=== PATIENT | female | born 1945 | race Caucasian/White ===

== ENCOUNTER 2017-01-17 12:16 | Inpatient (IN) ==
--- OUTSIDE RECORDS SUMMARY | 2017-01-17 12:41 | External Medical Summary | Clinical Summary ---
:1945 Author Organization [facility] Address [address] [place] [address] Phone Care Team Providers Name Role Phone Unavailable Primary Care Provider Unavailable Source Comments Some departments are not documenting in the electronic medical record. If you do not see the information that you expected, contact Release of Information in the Health Information Management department at [phone] for further assistance in locating additional records.[facility] Allergies Active Allergy Reactions Severity Noted Date Comments Ciprofloxacin STOMACH UPSET 05/01/2014 Amoxicillin-Pot Clavulanate STOMACH UPSET Low 04/02/2015 Current Medications Prescription Sig. Disp. Refills Start Date End Date Status BUDESONIDE/FORMOTEROL Inhale by mouth Active FUMARATE (SYMBICORT IN) Twice Daily. predniSONE (DELTASONE) 5 Take 10 mg by Active mg PO tablet mouth daily. pantoprazole DR Take 40 mg by Active (PROTONIX) 40 mg tablet mouth as Needed. albuterol (VENTOLIN HFA, Inhale 2 Puffs Active PROAIR HFA) 90 by mouth every 6 mcg/actuation inhaler hours as needed. CHOLECALCIFEROL (VITAMIN Take by mouth Active D3) (VITAMIN D3 PO) daily. fluticasone (FLONASE) 50 2 sprays to each 6 Inhaler 3 09/13/2012 Active mcg/actuation nasal nostril 2 times spray a day DIPHENOXYLATE Take 2.5 mg by Active HCL/ATROPINE (LOMOTIL mouth. PO) losartan (COZAAR) 25 mg Take 25 mg by Active tablet mouth daily. other medication 1 Dose. pre Active diabetic medicine starts with a P the pt is unsure of name. CYANOCOBALAMIN (VITAMIN Take by mouth. Active B-12) (VITAMIN B-12 PO) COD LIVER OIL PO Take by mouth. Active BABY ASPIRIN PO Take by mouth. Active predniSONE (DELTASONE) 09/02/2015 Active 10 mg tablet Active Problems Problem Noted Date Esophageal reflux 04/08/2005 Acquired deformity of nose 09/11/2004 Overview: Large post septal perforation Allergic rhinitis due to pollen 02/07/2004 Overview: Mold, dust, pollen, and cats Diarrhea 05/17/2000 anosmia 05/17/1999 Other chronic sinusitis 05/17/1983 Overview: Nasal obstruction PATIENT NAME: MARIANA SIMON MR#/PT#: [id number]; DATE OF OPERATION: 02/25/2004 ROOM #: OBSV PREOPERATIVE DIAGNOSES: Pansinusitis with 4+ polyposis, all sinus areas. Large septal perforation. POSTOPERATIVE DIAGNOSES: Same. OPERATION: Bilateral revision maxillary antrostomy with polyp removal.Bilateral revision frontal duct exploration DRAF IIB with removal of polyps.Bilateral revision total ethmoidectomy with removal of polyps.Bilateral revision sphenoidectomy with removal of polyps. SURGEON: Jeremy Man M.D. DATA SME: Matt Reyna M.D. Anesthesia - General endotracheal anesthesia. Findings - 4+ nasal polyps, and sinus polyps. There was an 80 percent septal perforation and 80 percent of the middle and inferior turbinates were previously removed by 5 prior procedures. INDICATIONS FOR PROCEDURE: The patient is a 58-year-old female with a history of recurrent nasal polyps and chronic sinusitis in all sinuses. She has had 5 prior surgeries and presents with complete nasal airway opacification and polyps coming from bilateral nasal airways visualized on anterior examination. DESCRIPTION OF PROCEDURE: After informed consent was obtained by the patient, the patient was taken to the operating room, placed supine on the operating room table. General endotracheal anesthesia was initiated and once the patient was adequately asleep, the table was turned 90 degrees. A shoulder roll was placed, as was the [employer] Image Guidance refrigerating engineer head. Once the refrigerating engineer head was placed and calibrated, points were assured and nasal airway was decongested with Afrin. The patient had obvious polyps coming out of her nasal airways bilaterally and 1 percent lidocaine with 1:100,000 epinephrine was used initially to inject the polyps. Suction debrider was then used to debride the nasal polyps on the left and right sides, keeping the noncutting portion of the suction debrider against the septum. The patient was found to have a very large, near 80 percent, septal perforation with polyps coming from the right side over into the left side. The inferior turbinates were identified bilaterally. The middle turbinates had been resected almost in their entirety bilaterally. Maxillary sinuses were completely full of polyps. After clearing polyps from the nasopharynx up towards the skull base, the sphenoid sinus on both the right and left sides were identified using [employer] system. There was pus coming from the left maxillary sinus and thick secretions in both. Using the straight Fajardo suction, the sphenoid sinuses were opened and upbiting and downbiting Kerrison rongeurs were used to remove the anterior face of the sphenoid sinus. Polyps were removed using the suction and Blakesley forceps. After widely opening both the right and left sphenoid sinuses, attention was turned to the maxillary sinuses where large antrostomies had been made previously but the sinuses were completely full of polypoid disease and secretions. A 60 degree suction debrider was utilized to remove polypoid tissue from both the right and left maxillary sinuses with a combination of 0 and 45 degree endoscopes, as well as a 70 degree endoscope. After removal of near all polyps in both maxillary sinuses, attention was turned to the posterior ethmoid cells where, with direct visualization and image guidance, all ethmoid cells were removed from posterior to anterior with removal of all polypoid tissue. Careful attention was taken not to damage the cribriform area or through the lamina proprecia. After clearing all ethmoid cells on both the right and left sides, attention was turned to the frontals where a DRAF IIB technique wide opening into the frontal sinuses was obtained using a combination of giraffe forceps and Kerrison forceps anteriorly. The polypoid tissue and thick secretions were removed using nasal frontal duct suctions. After opening all sinuses and clearing all polyps from the nasal airway that could be seen, the nasal airways were packed using Merocel packing and patient was allowed to awaken from general anesthesia, extubated, transferred to recovery room in satisfactory condition. Dr. Man performed all murray portions of this procedure. Staff Physician Signature (This operative report will become an official part of the medical record when reviewed and AUTHENTICATED by the attending surgeon.) Matt Reyna M.D. / [id number] T: 02/26/2004 [id number] cc: Matt Reyna M.D.Jeremy Man M.D.ENT office Unspecified asthma 05/17/1944 Family History Medical History Relation Name Comments Hypertension Other Family history Cancer-Breast Other Family history Cancer-Colon Other Family history Relation Name Status Comments Brother Alive Daughter Alive Daughter Alive Father Maternal Grandfather Maternal Grandmother Mother Other Other Other Paternal Grandfather Paternal Grandmother Social History Tobacco Use Types Packs/Day Years Used Date Never Smoker Smokeless Tobacco: Never Used Alcohol Use Drinks/Week oz/Week Comments No Sex Assigned at Date Recorded Not on file Last Filed Vital Signs Vital Sign Reading Time Taken Blood Pressure 149/87 10/15/2015 1:18 PM CDT Pulse 97 10/15/2015 1:18 PM CDT Temperature 37.1 C (98.8 F) 06/20/2009 3:30 PM NETWORK SEC[employer]ITY CONSULTANT Respiratory Rate - - Oxygen Saturation 94% 06/20/2009 5:00 PM NETWORK SECURITY CONSULTANT Inhaled Oxygen Concentration - - Weight 130.5 kg (287 lb 9.6 oz) 10/15/2015 1:18 PM CDT Height 154.9 cm (5' 1") 10/15/2015 1:18 PM CDT Body Mass Index 54.34 10/15/2015 1:18 PM CDT Plan of Treatment Health Maintenance Due Date Last Done Comments PHYSICAL (COMPREHENSIVE) EXAM 1950 PERTUSSIS VACCINE 1954 TETANUS VACCINE 1960 BREAST CANCER SCREENING 1983 SHINGLES VACCINE 2003 PREVNAR/PNEUMOVAX (#1) 2008 INFLUENZA VACCINE 01/15/2017 COLORECTAL CANCER SCREENING 06/20/2019 06/20/2009 OSTEOPOROSIS SCREENING Completed 09/24/2010
--- OUTSIDE RECORDS SUMMARY | 2017-01-17 12:41 | External Medical Summary | Continuity Of Care Document ---
:1945 Author Organization [facility] Address [address] [place] [address] Phone Care Team Providers Name Role Phone TC ARAYA, ENOC Kennedy Consulting Provider CIRA ARAYA, BONI Hinkle Consulting Provider [phone] HELADIO RUELAS MD, PRANEETH Montelongo Primary Care Provider KATHARINA ARAYA, RHINA Montelongo Consulting Provider SHAUNA CURTIS MD Attending Provider Results Lab Results Visit/Account #[id number] (March 25, 2016 2:26pm - March 28, 2016 2:18pm ) Test Result Date/Time POCGL POCGL(70-110 MG/DL) 344 MG/DL March 26, 2016 8:47am 366 MG/DL March 26, 2016 11:28am 329 MG/DL March 26, 2016 5:29pm 223 MG/DL March 26, 2016 9:17pm 206 MG/DL March 27, 2016 5:26am 218 MG/DL March 27, 2016 11:23am 234 MG/DL March 27, 2016 4:56pm 248 MG/DL March 27, 2016 9:34pm 206 MG/DL March 28, 2016 5:09am 239 MG/DL March 28, 2016 11:00am 04262-5: COMPLETE BLOOD COUNT WITH DIFF WHITE BLOOD COUNT(4.0-11.0 10E3/UL) 8.4 10E3/UL March 25, 2016 2:52pm RED BLOOD COUNT(4.00-5.20 10E6/UL) 4.33 10E6/UL March 25, 2016 2:52pm HEMOGLOBIN(12.0-16.0 G/DL) 10.1 G/DL March 25, 2016 2:52pm HEMATOCRIT(36.0-46.0 %) 34.3 % March 25, 2016 2:52pm MEAN CORPUSCULAR VOLUME(82.0-100.0 FL) 79.2 FL March 25, 2016 2:52pm 39053-6: MEAN CORPUSCULAR HEMOGLOBIN(26.0-34.0 PG) 23.3 PG March 25, 2016 2 :52pm MEAN CORPUSCULAR HGB CONC(31.5-36.5 G/DL) 29.4 G/DL March 25, 2016 2:52pm RED CELL DISTRIBUTION WIDTH(11.5-14.5 %) 17.3 % March 25, 2016 2:52pm 777-3: PLATELET COUNT(150-450 10E3/UL) 301 10E3/UL March 25, 2016 2:52pm MEAN PLATELET VOLUME(8.2-12.4 FL) 8.8 FL March 25, 2016 2:52pm 770-8: NEUTROPHILS % (AUTO)(40-70 %) 84 % March 25, 2016 2:52pm LYMPHOCYTES % (AUTO)(15-45 %) 11 % March 25, 2016 2:52pm 5905-5: MONOCYTES % (AUTO)(2-10 %) 4 % March 25, 2016 2:52pm 713-8: EOSINOPHILS % (AUTO)(0-6 %) 0 % March 25, 2016 2:52pm 706-2: BASOPHILS % (AUTO)(0-1 %) 0 % March 25, 2016 2:52pm 04795-9: IMMATURE GRANS % (AUTO)(0-0 %) 1 % March 25, 2016 2:52pm NUCLEATED RBCS (AUTO)(0-0 %) 0 % March 25, 2016 2:52pm 751-8: NEUTROPHILS # (AUTO)(2.5-7.5 10E3/UL) 7.1 10E3/UL March 25, 2016 2: 52pm 37249-2: LYMPHOCYTES # (AUTO)(1.0-4.0 10E3/UL) 0.9 10E3/UL March 25, 2016 2 :52pm 742-7: MONOCYTES # (AUTO)(0.2-0.8 10E3/UL) 0.3 10E3/UL March 25, 2016 2: 52pm 711-2: EOSINOPHILS # (AUTO)(0.0-0.4 10E3/UL) 0.0 10E3/UL March 25, 2016 2: 52pm 704-7: BASOPHILS # (AUTO)(0.0-0.2 10E3/UL) 0.0 10E3/UL March 25, 2016 2: 52pm IMMATURE GRANS # (AUTO)(0.0-0.0 10E3/UL) 0.1 10E3/UL March 25, 2016 2:52pm DIFF TYPE AUTOMATED March 25, 2016 2:52pm COMPLETE BLOOD COUNT WHITE BLOOD COUNT(4.0-11.0 10E3/UL) 7.3 10E3/UL March 26, 2016 6:42am RED BLOOD COUNT(4.00-5.20 10E6/UL) 4.46 10E6/UL March 26, 2016 6:42am HEMOGLOBIN(12.0-16.0 G/DL) 10.4 G/DL March 26, 2016 6:42am HEMATOCRIT(36.0-46.0 %) 35.0 % March 26, 2016 6:42am MEAN CORPUSCULAR VOLUME(82.0-100.0 FL) 78.5 FL March 26, 2016 6:42am 29076-9: MEAN CORPUSCULAR HEMOGLOBIN(26.0-34.0 PG) 23.3 PG March 26, 2016 6:42am MEAN CORPUSCULAR HGB CONC(31.5-36.5 G/DL) 29.7 G/DL March 26, 2016 6:42am RED CELL DISTRIBUTION WIDTH(11.5-14.5 %) 17.2 % March 26, 2016 6:42am 777-3: PLATELET COUNT(150-450 10E3/UL) 287 10E3/UL March 26, 2016 6:42am MEAN PLATELET VOLUME(8.2-12.4 FL) 9.4 FL March 26, 2016 6:42am NUCLEATED RBCS (AUTO)(0-0 %) 0 % March 26, 2016 6:42am RETIC PANEL 98472-1: RETICULOCYTE %(0.2-2.0 %) 2.2 % March 26, 2016 8:06am ABSOLUTE RETICS #(16-78 10E9/L) 95 10E9/L March 26, 2016 8:06am IMMATURE RETIC FRACTION(3.0-15.9 %) 26.9 % March 26, 2016 8:06am 88187-0: D-DIMER 11609-7: D-DIMER(0.00-0.49 UG/ML) 0.32 UG/ML March 25, 2016 2:52pm 29353-4: COMPLETE METABOLIC PROFILE GLUCOSE(70-110 MG/DL) 257 MG/DL March 25, 2016 2:52pm BLOOD UREA NITROGEN(6-20 MG/DL) 26 MG/DL March 25, 2016 2:52pm CREATININE(0.50-1.20 MG/DL) 0.78 MG/DL March 25, 2016 2:52pm 75136-6: EST GLOMERULAR FILTRATION RATE(Greater than or equal to 60) Greater than or equal to 60 March 25, 2016 2:52pm Result Comments: If the patient is of -Ivorian descent/extraction multiply the eGFR value by 1.212 to obtain the actual eGFR. >=60 mg/dL Normal 30-59 mg/dL Moderate Kidney Disease 15-29 mg/dL Severe Kidney Disease <15 mg/dL Kidney Failure BUN CREATININE RATIO(10.0-20.0 RATIO) 33.0 RATIO March 25, 2016 2:52pm SODIUM(135-145 MMOL/L) 136 MMOL/L March 25, 2016 2:52pm POTASSIUM(3.6-5.0 MMOL/L) 4.5 MMOL/L March 25, 2016 2:52pm CHLORIDE(101-111 MMOL/L) 102 MMOL/L March 25, 2016 2:52pm CO2(21-31 MMOL/L) 27 MMOL/L March 25, 2016 2:52pm ANION GAP(8-18) 12 March 25, 2016 2:52pm OSMO CALCULATED(270.0-290.0) 285.5 March 25, 2016 2:52pm CALCIUM(8.5-10.5 MG/DL) 8.4 MG/DL March 25, 2016 2:52pm BILIRUBIN,TOTAL(0.1-1.2 MG/DL) 0.2 MG/DL March 25, 2016 2:52pm ALKALINE PHOSPHATASE(42-121 IU/L) 55 IU/L March 25, 2016 2:52pm ASPARTATE AMINO TRANSFERASE(10-42 IU/L) 13 IU/L March 25, 2016 2:52pm ALANINE AMINOTRANSFERASE(10-60 IU/L) 15 IU/L March 25, 2016 2:52pm TOTAL PROTEIN(6.4-8.2 G/DL) 6.5 G/DL March 25, 2016 2:52pm ALBUMIN(3.5-5.5 G/DL) 3.6 G/DL March 25, 2016 2:52pm GLOBULIN(2.4-3.6) 2.9 March 25, 2016 2:52pm ALBUMIN/GLOBULIN RATIO(0.9-1.8 RATIO) 1.2 RATIO March 25, 2016 2:52pm BASIC METABOLIC PANEL GLUCOSE(70-110 MG/DL) 292 MG/DL March 26, 2016 6:42am BLOOD UREA NITROGEN(6-20 MG/DL) 22 MG/DL March 26, 2016 6:42am CREATININE(0.50-1.20 MG/DL) 0.92 MG/DL March 26, 2016 6:42am 34023-2: EST GLOMERULAR FILTRATION RATE(Greater than or equal to 60) Greater than or equal to 60 March 26, 2016 6:42am Result Comments: If the patient is of -[place]vorian descent/extraction multiply the eGFR value by 1.212 to obtain the actual eGFR. >=60 mg/dL Normal 30-59 mg/dL Moderate Kidney Disease 15-29 mg/dL Severe Kidney Disease <15 mg/dL Kidney Failure If the patient is of -[place]ian descent/extraction multiply the eGFR value by 1.212 to obtain the actual eGFR. >=60 mg/dL Normal 30-59 mg/dL Moderate Kidney Disease 15-29 mg/dL Severe Kidney Disease <15 mg/dL Kidney Failure BUN CREATININE RATIO(10.0-20.0 RATIO) 24.0 RATIO March 26, 2016 6:42am SODIUM(135-145 MMOL/L) 139 MMOL/L March 26, 2016 6:42am POTASSIUM(3.6-5.0 MMOL/L) 4.5 MMOL/L March 26, 2016 6:42am CHLORIDE(101-111 MMOL/L) 103 MMOL/L March 26, 2016 6:42am CO2(21-31 MMOL/L) 27 MMOL/L March 26, 2016 6:42am ANION GAP(8-18) 14 March 26, 2016 6:42am OSMO CALCULATED(270.0-290.0) 291.6 March 26, 2016 6:42am CALCIUM(8.5-10.5 MG/DL) 8.6 MG/DL March 26, 2016 6:42am 30478-6: CARDIAC TROPONIN I 46686-3: CARDIAC TROPONIN I(0.01-0.04 NG/ML) 0.01 NG/ML March 25, 2016 2: 52pm Result Comments: REFERENCE RANGES: NEGATIVE < 0.04 NG/ML POSSIBLE MYCARDIAL INVOLVEMENT >/=0.04 NG/ML INTERPRET TROPONIN I RESULT IN LIGHT OF THE TOTAL CLINICAL PRESENTATION INCLUDING CLINICAL HISTORY. ANY CONDITION RESULTING IN MYOCARDIAL INJURY CAN POTENTIALLY ELEVATE TROPONIN I LEVELS ABOVE EXPECTED NORMAL RANGES. NOTE NEW REFERENCE RANGE 68820-9: BETA NATRIURETIC PEPTIDE 85371-7: BETA NATRIURETIC PEPTIDE(0-100 PG/ML) 72 PG/ML March 25, 2016 2: 52pm IRON PROFILE IRON(40-160 UG/DL) 19 UG/DL March 26, 2016 8:06am IRON BINDING CAPACITY, TOTAL(250-400 UG/DL) 388 UG/DL March 26, 2016 8: 06am 3034-6: TRANSFERRIN(192-382 MG/DL) 277 MG/DL March 26, 2016 8:06am IRON SATURATION(20-50 %) 5 % March 26, 2016 8:06am 58120-2: GLYCOHEMOGLOBIN A1C 4548-4: %A1C(4.6-6.2 %) 8.4 % March 26, 2016 8:06am Microbiology Results Visit/Account #[id number] (March 25, 2016 2:26pm - March 28, 2016 2:18pm ) Procedure Result 37713-5: MRSA SCREEN FOR INFEC CONTROL 80336-5: MRSA SCREEN FOR INFEC CONTROL Result Instance On March 25, 2016 6: 41pm Source: [facility] Special Result Comments: No growth Allergies and Adverse Reactions Allergies and Adverse Reactions Patient Unit Number: [id number] Agent Type Reaction Severity Status FERROUS SULFATE Drug Allergy BLEEDING Unknown Active CIPROFLOXACIN Drug Adverse Reaction VOMITING Severe Active AMOXICILLIN Drug Adverse Reaction VOMITING Severe Active Problem List Problem List Visit/Account #[id number] (March 25, 2016 2:26pm - March 28, 2016 2:18pm ) Acute Problems: Code/Condition Comments Documented Start Documented Code(s) Date Resolved Date COPD exacerbation ICD10: J44.1 Obstructive chronic bronchitis with exacerbation ICD9: 491.21 Obstructive chronic bronchitis with exacerbation SNOMED: 958050556 Obstructive chronic bronchitis with exacerbation Chest pain ICD10: R07.9 Chest pain ICD9: 786.50 Chest pain SNOMED: 00587855 Chest pain 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 ICD9: 293.84 Anxiety disorder due to general medical condition SNOMED: 47556878 Anxiety disorder due to general medical condition History of nasal polyposis ICD10: Z87.09 History of nasal polyposis ICD9: V12.69 History of nasal polyposis SNOMED: 201737033 History of nasal polyposis Chronic Problems: Chronic hypoxemic respiratory failure ICD10: J96.11 Chronic respiratory failure with hypoxia ICD9: 518.83 Chronic respiratory failure with hypoxia SNOMED: 487797969 Chronic respiratory failure with hypoxia Resolved Problems: Chronic pansinusitis March 26, 2016 ICD10: J32.4 Chronic pansinusitis ICD9: 473.8 Chronic pansinusitis SNOMED: 93037165 Chronic pansinusitis Patient Unit Number: [id number] Chronic Problems: Code/Condition Comments Documented Start Documented Code(s) Date Resolved Date HTN (hypertension) ICD10: I10 Hypertension ICD9: 401.9 Hypertension SNOMED: 76675866 Hypertension Morbid obesity with body mass index of 50.0-59.9 in adult ICD10: E66.01 Morbid obesity with body mass index (BMI) of 50.0 to 59.9 in adult ICD9: 278.01 Morbid obesity with body mass index (BMI) of 50.0 to 59.9 in adult SNOMED: 101489493 Morbid obesity with body mass index (BMI) of 50.0 to 59.9 in adult 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.65 retirement current use of systemic steroids SNOMED: 816623410 retirement current use of systemic steroids Plan of Care Plan Of Care Visit/Account #[id number] (March 25, 2016 2:26pm - March 28, 2016 2:18pm ) Patient Instructions Instructions DI for Chronic Obstructive Pulmonary Disease Vital Signs Vital Signs Visit/Account #[id number] (March 25, 2016 2:26pm - March 28, 2016 2:18pm ) Sign First Result Last Result Code(s) Body Mass Index Body Mass Index (BMI): 54.0 kg/m2 On March 25, 2016 2:33pm 64511-9 BMI (body mass index) Body Mass Index as a Calculated Value 52.4 kg/m2 On March 25, 2016 2:33pm 95126-2 BMI (body mass index) Blood Pressure 136/ 80 mm[Hg] On March 25, 2016 6:02pm 158/ 60 mm[Hg] On March 28, 2016 10:54am 8480-6 BP Systolic Body Surface Area as a Calculated Value 2.17 m2 On March 25, 2016 2:33pm 3140-1 BSA (body surface area) Height (Feet/Inches) 5 [ft_us] 1 [in_us] On March 25, 2016 2:33pm Heart Rate/Pulse Pulse Rate (adult): 88 /min On March 25, 2016 6:02pm Pulse Rate (adult): 77 /min On March 28, 2016 10:54am 8867-4 Heart Rate 8893-0 Pulse rate Respiratory Rate Respiratory Rate: 24 /min On March 25, 2016 6:02pm Respiratory Rate: 22 /min On March 28, 2016 10:54am 9279-1 Respiratory rate Temperature in Fahrenheit Temperature (Fahrenheit): 97.7 [degF] On March 2:20pm Temperature (Fahrenheit): 99.3 [degF] On March 28, 2016 10: 54am 8310-5 Body Temperature Weight in Kilograms Weight (Kilograms): 125.7 kg On March 25, 2016 2:33pm 3141-9 Weight Measured 15357-8 Body weight measured in kilograms Functional Status Functional and Cognitive Status No Functional Status Data Medications Home Medications - Medications that the patient was taking prior to arrival at the hospital Visit/Account #[id number] (March 25, 2016 2:26pm - March 28, 2016 2:18pm ) Medication Route Sig/Schedule Precondition/Indication Comments/ Instructions Codes HYZAAR 100-12.5(LOSARTAN/HYDROCHLOROTHIAZIDE) 1 TAB TABLET ORAL DAILY Hydrochlorothiazide 12.5 MG / Losartan Potassium 100 MG Oral Tablet [Hyzaar] ( RxNorm): 653227 Dose: 2 TAB HYZAAR 100-12.5 (LOSARTAN/HYDROCHLOROTHIAZIDE) NDC: 30956117680 ASPIRIN CHEW(ASPIRIN) 81 MG TAB.CHEW ORAL DAILY Aspirin 81 MG Chewable Tablet (RxNorm): 398008 Dose: 81 MG ASPIRIN CHEW (ASPIRIN) NDC: 45160230631 DELTASONE(PredniSONE) 10 MG TAB ORAL DAILY {10 (Prednisone 10 MG Oral Tablet) } Pack (RxNorm): 147583 Dose: 20 MG DELTASONE (PredniSONE) NDC: 38970026171 VITAMIN D3(CHOLECALCIFEROL) 1000 UNIT TABLET ORAL DAILY Cholecalciferol 1000 UNT Oral Tablet (RxNorm): 742045 Dose: 1000 UNIT VITAMIN D3 (CHOLECALCIFEROL) NDC: 80411536847 Cod Liver Oil Softgel(OM3/DHA/EPA/COD LIVER OIL/A/D3) 1 EACH CAPSULE ORAL DAILY Cod Liver Oil Softgel (OM3/DHA/EPA/COD LIVER OIL/A/D3) NDC: 36881313551 Dose: 1 CAP B-12 1,000 MCG SUB TABLET(CYANOCOBALAMIN/FOLIC ACID) 1 EACH TAB.SUBL SUBLINGUAL DAILY B-12 1,000 MCG SUB TABLET (CYANOCOBALAMIN/FOLIC ACID) NDC : 43837767125 Dose: 1 EACH SYSTANE 0.3-0.4% EYE DROPS(PROPYLENE GLYCOL/PEG 400/PF) 1 EACH DROPERETTE EACH EYE NEEDED DRY EYES Polyethylene Glycol 400 4 MG/ML / Propylene glycol 3 MG/ML Ophthalmic Solution [Systane] (RxNorm): 351310 Dose: 1 DROP SYSTANE 0.3-0.4% EYE DROPS (PROPYLENE GLYCOL/PEG 400/PF) NDC: 10436877671 FERROUS SULFate(FERROUS SULFATE) 325 MG TABLET ORAL WITH BREAKFAST & SUPPER ferrous sulfate 325 MG Oral Tablet (RxNorm): 395206 Dose: 325 MG FERROUS SULFate (FERROUS SULFATE) NDC: 57231103596 OMNICEF(CEFDINIR) 300 MG CAP ORAL TWICE A DAY cefdinir 300 MG Oral Capsule (RxNorm): 439657 Dose: 300 MG OMNICEF (CEFDINIR) NDC: 18485159926 LOSARTAN POTASSIUM(LOSARTAN POTASSIUM) 25 MG TAB ORAL DAILY LOSARTAN POTASSIUM (LOSARTAN POTASSIUM) NDC: 52544962975 Dose: 25 MG VENTOLIN HFA(ALBUTEROL SULF) 18 GM INHALER INHALED EVERY 4 HOURS SHORTNESS OF BREATH 200 ACTUAT Albuterol 0.09 MG/ACTUAT Metered Dose Inhaler [Ventolin ] (RxNorm): 844023 Dose: 2 PUFF VENTOLIN HFA (ALBUTEROL SULF) NDC: 84182131721 LOMOTIL(DIPHENOXYLATE/ATROPINE) 1 TAB TABLET ORAL NEEDED LOOSE STOOL Atropine Sulfate 0.025 MG / Diphenoxylate Hydrochloride 2.5 MG Oral Tablet [ Lomotil] (RxNorm): 7126576 Dose: 1 TAB LOMOTIL (DIPHENOXYLATE/ATROPINE) NDC: 02877612096 POTASSIUM CHLORIDE(POTASSIUM CHLORIDE) 20 MEQ TAB.ER.PRT ORAL DAILY Potassium Chloride 20 MEQ Extended Release Oral Tablet (RxNorm): 731814 Dose: 20 MEQ POTASSIUM CHLORIDE (POTASSIUM CHLORIDE) NDC: 78719763667 IBUPROFEN(IBUPROFEN) 200 MG TABLET ORAL EVERY 6 HOURS PAIN Ibuprofen 200 MG Oral Tablet (RxNorm): 178460 Dose: 200 MG IBUPROFEN (IBUPROFEN) NDC: 75377084236 Inpatient/Ordered Medications - Medications administered during hospital visit Visit/Account #[id number] (March 25, 2016 2:26pm - March 28, 2016 2:18pm ) Medication Route Sig/Schedule Precondition/Indication Comments/ Instructions Codes ATROVENT 0.02% NEB(IPRATROPIUM BROMIDE) 0.5 MG/2.5 ML SOLUTION INHALED NOW Ipratropium [place] 0.2 MG/ML Inhalant Solution (RxNorm): 422815 Dose: 2.5 ML ATROVENT 0.02% NEB (IPRATROPIUM BROMIDE) NDC: 88568876516 XOPENEX NEB(LEVALBUTEROL) 1.25 MG/0.5 ML NEBULE INHALED NOW Levalbuterol 0.417 MG/ML Inhalant Solution [Xopenex] (RxNorm): 305573 Dose: 0.5 ML XOPENEX NEB (LEVALBUTEROL) NDC: 23277142656 Solu-MEDROL INJ(MethylPREDNISolone SOD SUCC) 125 MG/2 ML INJECTION INTRAVEN NOW Methylprednisolone 125 MG Injection [Solu-Medrol] (RxNorm): 2174501 Dose: 2 ML Solu-MEDROL INJ (MethylPREDNISolone SOD SUCC) NDC: 08108936246 VIBRAMYCIN(DOXYCYCLINE HYCLATE) 100 MG CAP ORAL TWICE A DAY doxycycline hyclate 100 MG Oral Capsule (RxNorm): 1631981 Dose: 100 MG VIBRAMYCIN (DOXYCYCLINE HYCLATE) NDC: 70467549196 Solu-MEDROL INJ(MethylPREDNISolone SOD SUCC) 125 MG/2 ML INJECTION INTRAVEN EVERY 8 HOURS Methylprednisolone 125 MG Injection [Solu-Medrol] (RxNorm): 5778281 Dose: 2 ML Solu-MEDROL INJ (MethylPREDNISolone SOD SUCC) NDC: 33229170237 MUCINEX(GuaiFENesin) 600 MG TAB ORAL TWICE A DAY 12 HR Guaifenesin 600 MG Extended Release Oral Tablet [Mucinex] (RxNorm): 897954 Dose: 1200 MG MUCINEX (GuaiFENesin) NDC: 09126769480 PEPCID(FAMOTIDINE) 20 MG TAB ORAL TWICE A DAY Famotidine 20 MG Oral Tablet (RxNorm): 965979 Dose: 20 MG PEPCID (FAMOTIDINE) NDC: 93919133528 COLACE(DOCUSATE SODIUM) 100 MG CAP ORAL TWICE A DAY Docusate Sodium 100 MG Oral Capsule (RxNorm): 8948209 Dose: 100 MG COLACE (DOCUSATE SODIUM) NDC: 10302246002 LOVENOX(ENOXAPARIN) 40 MG/0.4 ML INJECTION SUBCUTANEOUSLY DAILY@06 Label Comments: 0.4 ML Enoxaparin sodium 100 MG/ML Prefilled Syringe [Lovenox] ( RxNorm): 571714 Dose: 0.4 ML INJECT SC INTO ABDOMINAL WALL ONLY. LOVENOX (ENOXAPARIN) NDC: 46987438402 VENTOLIN 0.5% NEB(ALBUTEROL SULF) 2.5 MG/0.5 ML INHALER INHALED 3 X DAILY Albuterol 1 MG/ML Inhalant Solution (RxNorm): 966640 Dose: 0.5 ML VENTOLIN 0.5% NEB (ALBUTEROL SULF) NDC: 27366216374 VENTOLIN 0.5% NEB(ALBUTEROL SULF) 2.5 MG/0.5 ML INHALER INHALED Q2H PRN Reason: SHORTNESS OF BREATH/WHEEZING Albuterol 1 MG/ML Inhalant Solution ( RxNorm): 185863 Dose: 0.5 ML VENTOLIN 0.5% NEB (ALBUTEROL SULF) NDC: 03954067694 ATROVENT 0.02% NEB(IPRATROPIUM BROMIDE) 0.5 MG/2.5 ML SOLUTION INHALED 3 X DAILY Ipratropium [place] 0.2 MG/ML Inhalant Solution (RxNorm): 882015 Dose: 2.5 ML ATROVENT 0.02% NEB (IPRATROPIUM BROMIDE) NDC: 29918895870 ATROVENT 0.02% NEB(IPRATROPIUM BROMIDE) 0.5 MG/2.5 ML SOLUTION INHALED Q2H PRN Reason: SHORTNESS OF BREATH/WHEEZING Ipratropium [place] 0.2 MG/ML Inhalant Solution (RxNorm): 219407 Dose: 2.5 ML ATROVENT 0.02% NEB (IPRATROPIUM BROMIDE) NDC: 65710954384 TRANDATE INJ(LABETALOL HCL) 100 MG/20 ML INJECTION INTRAVEN NOW Label Comments: Labetalol hydrochloride 5 MG/ML Injectable Solution (RxNorm): 055417 Dose: 1 ML FOR IVP GIVE NO FASTER THAN 10 MG/MIN MAY INCREASE FALL RISK TRANDATE INJ (LABETALOL HCL) NDC: 00028874306 HumaLOG(INSULIN HUM LISPRO) 300 UNIT/3 ML INJECTION SUBCUTANEOUSLY SLIDING SCALE PRN Reason: HYPERGLYCEMIA Special Dose Instructions: Insulin Lispro 100 UNT/ML Injectable Solution [Humalog] (RxNorm): 658746 Dose: 0 ML STANDARD SCALE If BS less than 80 Call physician HumaLOG (INSULIN HUM LISPRO) NDC: 71988384999 If BS 151-200 Give 2 Units If BS 201-250 Give 4 Units If BS 251-300 Give 6 Units If BS 301-350 Give 8 Units If BS 351-400 Give 10 Units If BS 401-450 Give 12 Units If BS greater than 450 Call physician DOCUMENT SITE OF INJECTION DELTASONE(PredniSONE) 20 MG TAB ORAL TWICE A DAY Label Comments: Prednisone 20 MG Oral Tablet (RxNorm): 838028 Dose: 20 MG TAKE WITH FOOD OR MILK DELTASONE (PredniSONE) NDC: 88973982822 ZOLOFT(SERTRALINE HCL) 25 MG TAB ORAL DAILY Label Comments: Sertraline 25 MG Oral Tablet (RxNorm): 150993 Dose: 25 MG MAY INCREASE FALL RISK ZOLOFT (SERTRALINE HCL) NDC: 60735260493 LOMOTIL(DIPHENOXYLATE/ATROPINE) 1 TAB TAB ORAL 4 TIMES DAILY PRN Reason: DIARRHEA Label Comments: Atropine Sulfate 0.025 MG / Diphenoxylate Hydrochloride 2.5 MG Oral Tablet (RxNorm): 5271407 Dose: 1 TAB MAX REC OF 8 PER 24 HOURS MAY INCREASE FALL RISK LOMOTIL (DIPHENOXYLATE/ATROPINE) NDC: 70413055003 Discharge Medications - Medications that patient should continue to take. Review with physician Visit/Account #[id number] (March 25, 2016 2:26pm - March 28, 2016 2:18pm ) Medication Route Sig/Schedule Precondition/Indication Comments/ Instructions Codes ASPIRIN CHEW(ASPIRIN) 81 MG TAB.CHEW ORAL DAILY Aspirin 81 MG Chewable Tablet (RxNorm): 325050 Dose: 81 MG ASPIRIN CHEW (ASPIRIN) NDC: 86626829237 DELTASONE(PredniSONE) 10 MG TAB ORAL DAILY {10 (Prednisone 10 MG Oral Tablet) } Pack (RxNorm): 543828 Dose: 20 MG DELTASONE (PredniSONE) NDC: 09074617695 VITAMIN D3(CHOLECALCIFEROL) 1000 UNIT TABLET ORAL DAILY Cholecalciferol 1000 UNT Oral Tablet (RxNorm): 076261 Dose: 1000 UNIT VITAMIN D3 (CHOLECALCIFEROL) NDC: 35802857390 Cod Liver Oil Softgel(OM3/DHA/EPA/COD LIVER OIL/A/D3) 1 EACH CAPSULE ORAL DAILY Cod Liver Oil Softgel (OM3/DHA/EPA/COD LIVER OIL/A/D3) NDC: 15990758726 Dose: 1 CAP B-12 1,000 MCG SUB TABLET(CYANOCOBALAMIN/FOLIC ACID) 1 EACH TAB.SUBL SUBLINGUAL DAILY B-12 1,000 MCG SUB TABLET (CYANOCOBALAMIN/FOLIC ACID) NDC : 50740440654 Dose: 1 EACH SYSTANE 0.3-0.4% EYE DROPS(PROPYLENE GLYCOL/PEG 400/PF) 1 EACH DROPERETTE EACH EYE NEEDED DRY EYES Polyethylene Glycol 400 4 MG/ML / Propylene glycol 3 MG/ML Ophthalmic Solution [Systane] (RxNorm): 206062 Dose: 1 DROP SYSTANE 0.3-0.4% EYE DROPS (PROPYLENE GLYCOL/PEG 400/PF) NDC: 15115578944 FERROUS SULFate(FERROUS SULFATE) 325 MG TABLET ORAL WITH BREAKFAST & SUPPER ferrous sulfate 325 MG Oral Tablet (RxNorm): 015682 Dose: 325 MG FERROUS SULFate (FERROUS SULFATE) NDC: 55848608290 LOSARTAN POTASSIUM(LOSARTAN POTASSIUM) 25 MG TAB ORAL DAILY LOSARTAN POTASSIUM (LOSARTAN POTASSIUM) NDC: 15452164017 Dose: 25 MG VENTOLIN HFA(ALBUTEROL SULF) 18 GM INHALER INHALED EVERY 4 HOURS SHORTNESS OF BREATH 200 ACTUAT Albuterol 0.09 MG/ACTUAT Metered Dose Inhaler [Ventolin ] (RxNorm): 014056 Dose: 2 PUFF VENTOLIN HFA (ALBUTEROL SULF) NDC: 43221627280 LOMOTIL(DIPHENOXYLATE/ATROPINE) 1 TAB TABLET ORAL NEEDED LOOSE STOOL Atropine Sulfate 0.025 MG / Diphenoxylate Hydrochloride 2.5 MG Oral Tablet [ Lomotil] (RxNorm): 5545908 Dose: 1 TAB LOMOTIL (DIPHENOXYLATE/ATROPINE) NDC: 54351839164 POTASSIUM CHLORIDE(POTASSIUM CHLORIDE) 20 MEQ TAB.ER.PRT ORAL DAILY Potassium Chloride 20 MEQ Extended Release Oral Tablet (RxNorm): 471475 Dose: 20 MEQ POTASSIUM CHLORIDE (POTASSIUM CHLORIDE) NDC: 64161858554 IBUPROFEN(IBUPROFEN) 200 MG TABLET ORAL EVERY 6 HOURS PAIN Ibuprofen 200 MG Oral Tablet (RxNorm): 232976 Dose: 200 MG IBUPROFEN (IBUPROFEN) NDC: 01874300762 Guaifenesin Er(GuaiFENesin) 600 MG TAB ORAL TWICE A DAY 12 HR Guaifenesin 600 MG Extended Release Oral Tablet [Mucinex] (RxNorm): 848371 Dose: 1200 MG Guaifenesin Er (GuaiFENesin) NDC: 48479521550 Zoloft(SERTRALINE HCL) 25 MG TAB ORAL DAILY Rx Instructions: Sertraline 25 MG Oral Tablet (RxNorm): 171098 Dose: 25 MG in 6 days increase to 50mg daily (2 tablets daily) Zoloft (SERTRALINE HCL) NDC: 85682822405 VIBRAMYCIN(DOXYCYCLINE HYCLATE) 100 MG CAP ORAL TWICE A DAY doxycycline hyclate 100 MG Oral Capsule (RxNorm): 3122382 Dose: 100 MG VIBRAMYCIN (DOXYCYCLINE HYCLATE) NDC: 36504473874 WHEELCHAIR(WHEELCHAIR) 1 EACH EACH DAILY Rx Instructions: WHEELCHAIR ( WHEELCHAIR) NDC: 71927439353 Dose: 1 EACH use to allow you mobility to see your phsicians and make your follow up appts. History Of Encounters Encounters Visit/Account #[id number] (March 25, 2016 2:26pm - March 28, 2016 2:18pm ) Account Physican Of Reason For Visit Visit Diagnosis Start Stop Status Record Date/Time Date/Time ER RHINA POSADAS MD CHEST PAIN,COPD EXACERBATION J45.901: UNSPECIFIED ASTHMA WITH (ACUTE) EXACERBATION ICD10 Mar 25, 2016 2:26pm Mar 25, 2016 5:20pm IN SHAUNA CURTIS MD CHEST PAIN,COPD EXACERBATION J45.901: UNSPECIFIED ASTHMA WITH (ACUTE) EXACERBATION ICD10 Mar 25, 2016 4:22pm Mar 28, 2016 2:18pm History of Procedures Procedure List No procedures recorded. Discharge Instructions Discharge Instructions Visit/Account #[id number] (March 25, 2016 2:26pm - March 28, 2016 2:18pm ) DISCHARGE INSTRUCTIONS Physician Documentation PROVIDER INSTRUCTIONS Discharge Diet ADA 1800 [address] Discharge Activity/Weight Bearing Status as tolerates, use walker as needed. Use the wheelchair ramp to ambulated into and out of the house several times a day to build up your stamina. Use wheelchair only to get to appoints. Try to find water aerobics club or something to have exercise that is easy on the joints. Frequent short walks to start and increase length of time and distance every day. make small goals to meet achievements. Equipment/Supplies Wheelchair Other Equipment/Supplies walker as needed. Use wheelchair to get to your docotr appointments as needed. Attempt to keep as mobile and independent as possible Discharge Diet ADA 1800 [address] Equipment/Supplies Wheelchair Other Equipment/Supplies walker as needed. Use wheelchair to get to your docotr appointments as needed. Attempt to keep as mobile and independent as possible Discharge Activity/Weight Bearing Status as tolerates, use walker as needed. Use the wheelchair ramp to ambulated into and out of the house several times a day to build up your stamina. Use wheelchair only to get to appoints. Try to find water aerobics club or something to have exercise that is easy on the joints. Frequent short walks to start and increase length of time and distance every day. make small goals to meet achievements. CARE MANAGEMENT/HOME HEALTH Care Management none WOUND/INCISION/CATHETER CARE Incision/Wound Care none Catheter Care: none REASON TO CALL PROVIDER Notify Physician if: Increased shortness of breath, fever, nausea, vomiting, or chills. FOLLOW UP APPOINTMENTS Follow Up Appointment Date/Time: Dana Redman Follow-up tests/procedures/outpatient needs: Discuss with you primary care or car driver about the sleep study to get a CPAP at night. Social History Social History No Social History Data. Immunizations Immunizations Patient Unit Number: [id number] Immunizations No immunizations recorded.
--- OUTSIDE RECORDS SUMMARY | 2017-01-17 12:41 | External Medical Summary | Referral Summary ---
:1945 Author Organization [facility] Address [address] [place] [address] Care Team Providers Name Role Phone Pauline Wang Primary Care Physician Encounter [facility] [id number] Date(s): 09/28/14 - 09/28/14 [facility] [address] [place] [address] [phone] Final: COUGH Discharge Disposition: 01-Home or Self Care Attending Physician: Eldon Conklin MD, [facility] Vital Signs No data available for this section Problem List No data available for this section Allergies, Adverse Reactions, Alerts Substance Reaction Severity Status ciprofloxacin Adverse Reaction Active Medications No data available for this section Results No data available for this section Immunizations No data available for this section Procedures No data available for this section Social History No data available for this section Assessment and Plan No data available for this section
[2017-01-17] MEDS ORDERED: FUROSEMIDE 40 MG/4 ML INJECTION IVP ONE (12:53)
[2017-01-17] MEDS: SALINE FLUSH 10ml SYRINGE IVF PRN (13:19)
[2017-01-17] MEDS ORDERED: ALBUTEROL/IPRATROPIUM 2.5mg-0.5mg/3ml NEB AEROSOL ONE (14:03)
[2017-01-17] MEDS ORDERED: SALINE FLUSH 10ml SYRINGE ONE ×2 (15:37→15:45)
[2017-01-17] MEDS ORDERED: IOHEXOL 350mg/ml 75ml INJECTION ONE (15:37)
[2017-01-17] MEDS ORDERED: NS 100 ML ONE (15:37)
--- NOTE | 2017-01-17 16:25 | Emergency Department Report ---
Asthma HPI - General Chief Complaint: Shortness of Breath/Dyspnea Stated Complaint: diff breathing Time Seen by Provider: 01/17/17 12:35 - History of Present Illness HPI Narrative: 71-year-old female presents with acute shortness of breath. Patient has a history of COPD and CHF. She has not been consistent with taking her diuretic. Shortness of breath has been worsening over the last 2-3 days. She's had no chest pain with this, no nausea vomiting or diarrhea. She has developed a cough and has been using her inhaler.. No fever. She is a nonsmoker. She has type 2 diabetes which is "usually" controlled. - Related Data Home Medications Medication Instructions Recorded Confirmed Albuterol Sulfate [Ventolin Hfa] 1 puff IH BID PRN #0 08/09/13 01/17/17 Cod Liver Oil 1 cap PO DAILY 01/17/17 01/17/17 Glimepiride [Amaryl] 2 mg PO DAILY 01/17/17 01/17/17 Ibuprofen 200 mg PO Q4H PRN 01/17/17 01/17/17 Losartan [Cozaar] 25 mg PO DAILY 01/17/17 01/17/17 Potassium Chloride [K-Dur] 20 meq PO DAILY 01/17/17 01/17/17 Vitamin D 1 tab PO DAILY 01/17/17 01/17/17 Previous Rx's Medication Instructions Recorded Acetaminophen [Tylenol] 325 - 650 mg PO Q5H PRN tablet 01/27/17 Albuterol Neb (0.083%) [Proventil 2.5 mg AEROSOL RTQID neb 01/27/17 Neb (0.083%)] Carvedilol [Coreg] 6.25 mg PO BIDWM #30 tab 01/27/17 Furosemide [Lasix] 40 mg PO DAILY #30 tab 01/27/17 Guaifenesin LA [Mucinex LA] 1,200 mg PO BID tablet 01/27/17 LORazepam [Ativan] 0.5 mg PO Q4-6HPRN PRN #20 tablet 01/27/17 PredniSONE [Deltasone] 15 mg PO DAILY #40 tab 01/27/17 Sulfamethox/Tmp [Bactrim Ds] 1 tab PO BID #28 tab 01/27/17 Allergies Allergy/AdvReac Type Severity Reaction Status Date / Time amoxicillin Allergy Mild Verified 09/09/17 09:49 ciprofloxacin Allergy Mild Verified 01/23/17 09:49 ipratropium Allergy Unknown Verified 01/23/17 09:49 Review of Systems All systems: reviewed and negative except as stated PFSH Patient Stated Medical History Chronic Obstructive Pulmonary Yes Disease (COPD) Pneumonia Yes Pulmonary Edema Yes Diabetes Mellitus Type 1 Yes Surgical History: Hysterectomy - Social History Smoking status: Never smoker Substance use type: does not use Physical Exam - Limitations Limitations: no limitations - General General appearance: alert, in distress (acute shortness of breath) - Normal Exams: Head:: Normocephalic without trauma Cardiovascular:: Regular rate and rhythm, without murmur or gallop, Pulses 2+ all extremities, capillary refill, <2 seconds all extremities Abdomen:: Bowel sounds positive, soft, non-tender, non-distended, no hepatosplenomegaly, masses or bruits noted Neurological:: Patient is alert, and oriented, cranial nerves, motor/sensory/ cerebellar, exams w/o gross deficits, to observation Psychiatric:: Patient exhibits, appropriate attention, emotion and affect - Respiratory Respiratory exam: Present: other (mild crackles bilateral bases.) Course Vital Signs Temperature 98.4 F 01/17/17 12:16 Pulse Rate 107 H 01/17/17 12:16 Respiratory Rate 26 H 01/17/17 12:16 Blood Pressure 124/61 01/17/17 12:16 Pulse Oximetry 96 01/17/17 12:16 Temperature 98.1 F 01/28/17 14:06 Pulse Rate 81 01/28/17 14:06 Respiratory Rate 19 01/28/17 14:06 Blood Pressure 144/67 H 01/28/17 14:06 Pulse Oximetry 95 01/28/17 14:06 Dyspnea - MDM Narrative Medical decision making narrative: Chest x-ray shows possible pulmonary congestion. D-dimer was elevated at greater than 400 and BNP was elevated at greater than 1000. Patient was given Lasix for IV diuresis. CT PE was ordered and returned negative. UTI was noted on UA, but is asymptomatic at this time. Hospitalist was consulted for admission due to CHF exacerbation and acute shortness of air. Patient will be admitted to their service. - Lab Data Result diagrams: 01/26/17 04:29 01/27/17 04:26 Lab Results 01/17/17 01/17/17 01/17/17 Range/Units 13:18 13:19 13:19 WBC 9.8 (4.5-11.0) T/MM3 RBC 4.03 (4.00-5.20) M/MM3 Hgb 11.3 L (12-16) GM/DL Hct 35.9 L (36-46) % MCV 89.1 (80-100) UM3 MCH 28.0 (26-34) UUG MCHC 31.5 (31-37) GM/DL RDW Std Deviation 49.5 (36.9-50.2) FL Plt Count 296 (130-400) T/MM3 MPV 9.2 L (9.4-12.4) UM3 Immature Gran % (Auto) Not performed Neut % (Auto) Not performed Lymph % (Auto) Not performed [place] % (Auto) Not performed Eos % (Auto) Not performed Baso % (Auto) Not performed Neut # Not performed Lymph # Not performed [place] # Not performed Eos # Not performed Baso # Not performed Abs Immat Gran (auto) Not performed Neutrophils % (Manual) 92.0 H (33-66) % Lymphocytes % (Manual) 6.0 L (23-45) % Monocytes % (Manual) 2.0 (0-9.0) % Neutrophils # (Manual) 9.0 H (1.8-7.7) T/MM3 Lymphocytes # (Manual) 0.6 L (1-4.8) T/MM3 Monocytes # (Manual) 0.2 (0-0.8) T/MM3 RBC Morph Comment Normal D-Dimer 405 H (0-230) NG/ML Turbidity < 20 (0-20) Sodium 143 (134-144) MEQ/L Potassium 4.4 (3.6-5) MEQ/L Chloride 104 (98-107) MEQ/L Carbon Dioxide 30 (22-30) MEQ/L Anion Gap 9 (5-15) MEQ/L BUN 25.0 H (7-17) MG/DL Creatinine 0.8 (0.7-1.2) MG/DL GFR Calculation 70 BUN/Creatinine Ratio 31 H (6-26) RATIO Glucose 238 H (65-110) MG/DL Calculated Osmolality 287 H (261-280) MOSM/KG Calcium 9.4 (8.4-10.2) MG/DL Total Bilirubin 0.60 (0.20-1.30) MG/DL Icterus Index < 2 (0-7) AST 26 (14-36) U/L ALT 60 H (9-52) U/L Alkaline Phosphatase 77 (38-126) U/L Troponin I < 0.012 (0-0.12) ng/ml B-Natriuretic Peptide 1010 H (0-175) pg/mL Total Protein 7.0 (6.3-8.2) G/DL Albumin 4.0 (3.5-5.0) G/DL Globulin 3.0 (2.4-3.6) G/DL Albumin/Globulin Ratio 1.3 (1.1-2.2) RATIO Specimen Hemolysis < 15 (0-25) Ur Collection Type Urine Color (YELLOW) Urine Clarity Urine pH (5.0-8.0) Ur Specific [place] (1.015-1.025) Urine Protein (NEGATIVE) Urine Glucose (UA) (NEGATIVE) Urine Ketones (NEGATIVE) Urine Occult Blood (NEGATIVE) Urine Nitrate (NEGATIVE) Urine Bilirubin (NEGATIVE) Urine Urobilinogen (NORMAL) EU/DL Ur Leukocyte Esterase (NEGATIVE) Urine RBC (0-3) /HPF Urine WBC (0-5) /HPF Ur Squamous Epith Cells Urine Bacteria (NEGATIVE) Hyaline Casts /LPF Urine Mucus Ur Culture Indicated? 01/17/17 Range/Units 13:51 WBC (4.5-11.0) T/MM3 RBC (4.00-5.20) M/MM3 Hgb (12-16) GM/DL Hct (36-46) % MCV (80-100) UM3 MCH (26-34) UUG MCHC (31-37) GM/DL RDW Std Deviation (36.9-50.2) FL Plt Count (130-400) T/MM3 MPV (9.4-12.4) UM3 Immature Gran % (Auto) Neut % (Auto) Lymph % (Auto) [place] % (Auto) Eos % (Auto) Baso % (Auto) Neut # Lymph # [place] # Eos # Baso # Abs Immat Gran (auto) Neutrophils % (Manual) (33-66) % Lymphocytes % (Manual) (23-45) % Monocytes % (Manual) (0-9.0) % Neutrophils # (Manual) (1.8-7.7) T/MM3 Lymphocytes # (Manual) (1-4.8) T/MM3 Monocytes # (Manual) (0-0.8) T/MM3 RBC Morph Comment D-Dimer (0-230) NG/ML Turbidity (0-20) Sodium (134-144) MEQ/L Potassium (3.6-5) MEQ/L Chloride (98-107) MEQ/L Carbon Dioxide (22-30) MEQ/L Anion Gap (5-15) MEQ/L BUN (7-17) MG/DL Creatinine (0.7-1.2) MG/DL GFR Calculation BUN/Creatinine Ratio (6-26) RATIO Glucose (65-110) MG/DL Calculated Osmolality (261-280) MOSM/KG Calcium (8.4-10.2) MG/DL Total Bilirubin (0.20-1.30) MG/DL Icterus Index (0-7) AST (14-36) U/L ALT (9-52) U/L Alkaline Phosphatase (38-126) U/L Troponin I (0-0.12) ng/ml B-Natriuretic Peptide (0-175) pg/mL Total Protein (6.3-8.2) G/DL Albumin (3.5-5.0) G/DL Globulin (2.4-3.6) G/DL Albumin/Globulin Ratio (1.1-2.2) RATIO Specimen Hemolysis (0-25) Ur Collection Type Urine, mcgill Urine Color Yellow (YELLOW) Urine Clarity Sl cloudy Urine pH 5.5 (5.0-8.0) Ur Specific [place] <=1.005 L (1.015-1.025) Urine Protein Negative (NEGATIVE) Urine Glucose (UA) 1+ A (NEGATIVE) Urine Ketones Negative (NEGATIVE) Urine Occult Blood 3+ A (NEGATIVE) Urine Nitrate Positive A (NEGATIVE) Urine Bilirubin Negative (NEGATIVE) Urine Urobilinogen 0.2 (NORMAL) EU/DL Ur Leukocyte Esterase 1+ A (NEGATIVE) Urine RBC 0-1 (0-3) /HPF Urine WBC 5-10 H (0-5) /HPF Ur Squamous Epith Cells 0-5 Urine Bacteria 2+ H (NEGATIVE) Hyaline Casts 0-1 /LPF Urine Mucus Present Ur Culture Indicated? Cult reflexed &setup Disposition Clinical Impression: Congestive heart failure Disposition: 02 To OBS [facility] Condition: Stable Time of Disposition: 14:51 - Seen By: physician
[2017-01-17 16:40] VITALS: BMI 51.9
--- NOTE | 2017-01-17 16:44 | History & Physical Report ---
<SelwynRoma Pepe - Last Filed: 01/17/17 16:37> History of Present Illness Date: 01/17/17 Chief complaint: SOA HPI: Flower is a pleasant 71 yo, chronically disabled female. She reports that she has been essentially homebound for the last year due to SOA. She sees Dr. Conklin for her chronic lung disease, and is on oxygen at 2- 3liters ongoing. She does not wear CPAP, and has not been diagnosed with sleep apnea. She denies history of heart disease or CHF. She did undergo a heart cath by Dr. Roberts and [facility] 2-3 years ago, which she reports as normal. She has not needed to follow up with Dr. Roberts. She does have a history of DM2, which she attributes to frequent steroid use. She has recently tried to diet without much success. She is unclear if she has gained or lost weight. She was previously on Lasix, which she stopped due to urinary incontinence. She reports needing to urinate Q 20 minutes, with urgency, frequency, and incontinence. She states a sharp pain prior to need to urinate. Upon review of her record, she has had extensive history of kidney stones with hydronephrosis requiring intervention by Dr. Resendiz. She reported urgency and incontinence in the past with her prior kidney stone occurrences. She denies any fever or chills. Reports that she has been coughing up yellow sputum. No abdominal c/o, no N/V/D. Does reports some soft stool, but need to strain when having BM. One incidence of blood in stool, which she attributes to hemorrhoids. Reports and abdominal protrusion at site of prior hiatal hernia repair. She reports chronic right hip pain, worse with ambulation and intermittent "giving out" when trying to walk. Denies recent fall or injury. Review of Systems Comprehensive ROS: completed and no additional positive findings except those as stated - Constitutional Constitutional: Present: as per HPI, fatigue, weakness. Absent: chills - EENMT Eyes: Present: as per HPI - Cardiovascular Cardiovascular: Present: dyspnea on exertion, orthopnea, edema, as per HPI. Absent: chest pain, heart murmur Rhythm: Present: regular rhythm Vascular: Present: see HPI - Respiratory Respiratory: Present: as per HPI, cough, dyspnea, dyspnea on exertion, wheezing , chest congestion - Gastrointestinal Gastrointestinal: Present: as per HPI, change in bowel habits, change in stool character, melena - Genitourinary Genitourinary: Present: as per HPI, urinary frequency, urinary incontinence, urinary urgency - Musculoskeletal Musculoskeletal: Present: as per HPI, abnormal gait, limited range of motion - Neurological Neurological: Present: as per HPI PFSH COPD/Asthma- Katerin Chronic hypoxemia- O2 at 2-3L HTN Pneumonia DM2 Hydronephrosis/Kidney stones. Chronic loose stool Chronic edema. Surgical History: Hiatal hernia. Cholecystectomy. Multiple Nasal Polypectomy. Hysterectomy. Bunionectomy. Colonoscopy. Cystoscopy with renal stent placement Family History: F- HTN/Colon CA M-BrCA - Social History Smoking status: Never smoker Substance use type: does not use Alcohol intake frequency: does not drink Housing: house Household members: spouse Current occupational status: retired, disabled Current residence: Independent Living Medications Home Medications Medication Instructions Recorded Confirmed Type Albuterol Sulfate [Ventolin Hfa] 1 puff IH BID PRN #0 08/09/13 01/17/17 History Cod Liver Oil 1 cap PO DAILY 01/17/17 01/17/17 History Glimepiride [Amaryl] 2 mg PO DAILY 01/17/17 01/17/17 History Ibuprofen 200 mg PO Q4H PRN 01/17/17 01/17/17 History Losartan [Cozaar] 25 mg PO DAILY 01/17/17 01/17/17 History Potassium Chloride [K-Dur] 20 meq PO DAILY 01/17/17 01/17/17 History PredniSONE [Deltasone] 15 mg PO DAILY 01/17/17 01/17/17 History Vitamin D 1 tab PO DAILY 01/17/17 01/17/17 History Allergies Allergy/AdvReac Type Severity Reaction Status Date / Time amoxicillin Allergy Mild Verified 01/17/17 17:34 ciprofloxacin Allergy Mild Verified 01/17/17 17:34 ipratropium Allergy Mild Verified 01/17/17 17:34 Atrovent Allergy Mild Uncoded 01/17/17 17:34 Exam Vital Signs: Temperature 98.4 F 01/17/17 12:16 Pulse Rate 95 01/17/17 16:12 Respiratory Rate 16 01/17/17 16:12 Blood Pressure 150/72 H 01/17/17 14:45 Pulse Oximetry 95 09/03/17 16:12 Height/Weight/BMI: Weight 124.6 kg - Constitutional Present: mild distress, morbidly obese, cooperative - Routine HEENT Exam Head: Present: normocephalic, atraumatic Eye: Present: EOMI, PERRL, normal accommodation ENT: Present: mucous membranes moist - Routine Neck Exam Present: supple. Absent: JVD, tenderness - Routine Chest/Breast/Axilla Exam Chest wall: Absent: tenderness - Routine Respiratory Exam Present: dyspnea, decreased breath sounds, wheezes, crackles, diminished air movement Comments: Scattered wheezes and crackles throughout. - Routine Cardiovascular Exam Present: RRR, S1, S2, no murmur - Routine Abdominal Exam Present: soft, normoactive bowel sounds, non tender, distended - Routine Exam Comments: Torres Clear yellow. - Routine Extremities Exam Present: edema (Marked edema toe to groin. ) - Routine Skin Exam Present: dry, warm - Routine Neurological Exam Present: alert, oriented X3, moving all extremities - Routine Psychiatric Exam Present: normal affect, normal thought process, good insight Results - Labs CBC & Chem 7: 01/17/17 13:18 01/17/17 13:19 - Imaging and Cardiology Chest x-ray Status: image reviewed by me Additional comments: Bilateral fluid overload. Atelectasis on CXR. Assessment and Plan (1) Acute CHF (congestive heart failure) Current visit: Yes Status: Acute (2) NYHA Class IV cardiovascular function Current visit: Yes Status: Acute (3) Acute and chronic respiratory failure Current visit: Yes Status: Acute DVT Prophylaxis: Lovenox Assessment and Plan: Impression: Acute Congestive Heart Failure Fluid overload NYHA CHF Class IV Acute on Chronic Respiratory Failure. DM2 HTN Morbid obesity Bilateral nephrolithiasis Urinary urgency with incontinence Chronic loose stools. Plan: 01/17/17 H&P Admit to inpatient. *CV: Continue IV diuresis. Assess 2D Echo for EF. Add beta-kelly, JOCELYN/ARB as appropriate. Continue O2. CTA obtained- a bit limited due to artifact. Start prophylaxis lovenox. *Pulm: Continue O2. Nebs. Diurese. Add doxycycline for URI. No acute evidence of pneumonia. *DM2- Continue home medications as appropriate. Monitor accuchecks. *Loose stool- Hold home code liver oil May need outpatient endoscopy when more stable. *Urinary frequency, Urgency Urine cx pending. Bilateral hydronephrosis. May need to obtain CT abdomen/pelvis, as similar sx with prior kidney stones. Torres for now due to significant respiratory distress. - Time spent with patient greater than 35 minutes Hospital Course Summary Disclaimer: The visit summary below is not to be considered part of the above Progress Note. Hospital Course: 01/17/17 17:04 Admit to inpatient. *CV: Continue IV diuresis. Assess 2D Echo for EF. Add beta-kelly, JOCELYN/ARB as appropriate. Continue O2. CTA obtained- a bit limited due to artifact. Start prophylaxis lovenox. *Pulm: Continue O2. Nebs. Diurese. Add doxycycline for URI. No acute evidence of pneumonia. *DM2- Continue home medications as appropriate. Monitor accuchecks. *Loose stool- Hold home code liver oil May need outpatient endoscopy when more stable. *Urinary frequency, Urgency Urine cx pending. Bilateral hydronephrosis. May need to obtain CT abdomen/pelvis, as similar sx with prior kidney stones. Torres for now due to significant respiratory distress. <Nadya Larsen - Last Filed: 01/17/17 17:42> History of Present Illness Date: 01/17/17 [facility] Patient Stated Medical History Cataracts Yes Asthma Yes Bronchitis Yes Chronic Obstructive Pulmonary Yes Disease (COPD) Pneumonia Yes Pulmonary Edema Yes Diabetes Mellitus Type 2 Yes Hiatal Hernia Yes: 1986 Hx Incontinence Yes Hx Kidney Stones Yes Hx Urinary Tract Infection Yes Anemia Yes Exam Vital Signs: Temperature 97.7 F 01/17/17 16:26 Pulse Rate 95 01/17/17 16:26 Respiratory Rate 24 01/17/17 16:26 Blood Pressure 144/71 H 01/17/17 16:26 Pulse Oximetry 97 01/17/17 16:26 Height/Weight/BMI: Height 1.55 m Weight 124.6 kg Body Mass Index 51.9 Results - Labs CBC & Chem 7: 01/17/17 13:18 01/17/17 13:19 Assessment and Plan (1) Acute CHF (congestive heart failure) Current visit: Yes Status: Acute (2) NYHA Class IV cardiovascular function Current visit: Yes Status: Acute (3) Acute and chronic respiratory failure Current visit: Yes Status: Acute Assessment and Plan: I have independently evaluated and examined this patient. I reviewed the chart, the patient's history, and the AUTOMATIC TIRE TESTER/PA's documented findings as above. We discussed and formulated the assessment and plan as above with additions as below: Mrs. Austin was seen with her at the bedside. They provide a somewhat confusing history and contradict each other frequently but basically describe increasing dyspnea, orthopnea, and profound exertional dyspnea worsening over the past year with exertional hypoxia. Symptoms increased the past couple of days prompting the patient to increase prednisone to 60 mg daily yesterday when she developed a sore throat and cough with yellow sputum when she thought she might have a URI. She repeated 60 mg of prednisone today but due to worsening dyspnea they subsequently presented to the emergency room where her oxygen saturation was initially reported to be in the mid-lower 80s on home O2 of 2 L per nasal cannula. Flow Rate was increased to 3-4 L. Patient was felt to be significantly volume overloaded and diuresis was initiated following placement of Torres catheter. Patient doesn't believe her weight has increased over the past year but really hasn't weighed herself due to limited mobility. Her has not noted apnea but reports she makes an abnormal sound when she sleeps which isn't really snoring. The patient has increased oxygen flow rate at home from 2 to 2.5 to 2.75 L over undefined period of time and often uses 3 L when ambulating. Examination reveals morbidly obese female who is able to speak without respiratory compromise Breath sounds are diminished anteriorly, audible wheezing is present but decreases when the patient is upright to auscultate posterior lung schmitt. Minimal crackles at the bases posteriorly, no wheezing noted posterior schmitt. Regular rhythm, S1-S2 Small hernia palpable midline upper abdomen, I could not reduce it with moderate pressure. +3 edema bilateral lower extremities; no pitting edema lower back. Elevated proBNP, minor increased [id number] with age; bicarbonate 30. Chest x-ray reviewed by myself revealing mild increased vascular markings, cardiomegaly, and abdominal pannus overlying lower lung schmitt and obtained views. CTA of the chest also reviewed by myself demonstrates cardiomegaly, small pleural effusions, no clear evidence of PE, nephrolithiasis with probable hydronephrosis. EKG with sinus rhythm, incomplete right bundle, no acute changes Exam most compatible with volume overload/obesity hypoventilation syndrome. History difficult to sort out-patient describes worsening of symptoms in conjunction with sore throat but is clearly had progression of symptoms over longer period of time. Continue prednisone at 60 mg one additional day and then titrate rapidly; continue diuresis. Obtain nocturnal oximetry tonight on whatever flow rate patient is on. ABG in a.m. to assess PCO2. We'll ask Dr. Conklin to assist in management after . Discussed with Dr. Medeiros, respiratory therapy, and nursing. Studies reviewed by myself as noted above, laboratory data reviewed. Patient's primary care physician is Dr. Anderson, her is her DPOA and she is a full code. Hospital Course Summary Disclaimer: The visit summary below is not to be considered part of the above Progress Note.
[2017-01-17] MEDS ORDERED: ONDANSETRON 4 MG/2 ML INJECTION IVP PRN (17:14)
[2017-01-17] MEDS ORDERED: METOCLOPRAMIDE 10mg/2ml INJECTION IVP PRN (17:14)
[2017-01-17] MEDS ORDERED: ACETAMINOPHEN 325 MG TABLET PO PRN (17:14)
[2017-01-17] MEDS: CARVEDILOL 6.25 MG TABLET PO SCH ×2 (18:44→18:45)
[2017-01-17] MEDS: ENOXAPARIN 30 MG/0.3 ML INJECTION SQ SCH ×2 (18:45→21:00)
[2017-01-17] MEDS: DOXYCYCLINE 100 MG in NS 250ml 250 ML IV SCH ×2 (18:46→21:00)
[2017-01-17] MEDS: ALBUTEROL 2.5mg/3ml (0.083%) NEB AEROSOL SCH (18:57)
[2017-01-17] MEDS: INSULIN ASPART 100unit/ml INJECTION SQ PRN (20:47)
[2017-01-17] MEDS: ALBUTEROL 2.5mg/3ml (0.083%) NEB AEROSOL PRN (22:21)
[2017-01-18] MEDS: SALINE FLUSH 10ml SYRINGE IVF PRN ×4 (00:22→16:42)
[2017-01-18] MEDS: FUROSEMIDE 40 MG/4 ML INJECTION IVP SCH ×3 (00:22→16:42)
[2017-01-18] MEDS: ENOXAPARIN 30 MG/0.3 ML INJECTION SQ SCH ×3 (05:59→16:59)
[2017-01-18] MEDS: DOXYCYCLINE 100 MG in NS 250ml 250 ML IV SCH ×2 (06:00→08:03)
[2017-01-18] MEDS: ALBUTEROL 2.5mg/3ml (0.083%) NEB AEROSOL SCH ×4 (07:19→19:19)
[2017-01-18] MEDS: LOSARTAN 50 MG TABLET PO SCH (08:09)
[2017-01-18] MEDS: GLIMEPIRIDE 2 MG TABLET PO SCH (08:09)
[2017-01-18] MEDS: CARVEDILOL 6.25 MG TABLET PO SCH ×2 (08:09→16:45)
[2017-01-18] MEDS ORDERED: PredniSONE 10 MG TABLET PO SCH ×3 (09:00→15:57)
[2017-01-18] MEDS ORDERED: --POM--ALBUTEROL HFA INHALER 8gm ORAL INH PRN (10:04)
[2017-01-18] MEDS ORDERED: INHALER ASSIST DEVICE (Optichamber) MC ONE (10:30)
[2017-01-18] MEDS: INSULIN ASPART 100unit/ml INJECTION SQ PRN ×2 (14:42→20:57)
--- NOTE | 2017-01-18 15:37 | Progress Note ---
Subjective: Mrs. Austin was seen with her at bedside. She reports that she feels "desperate" for air although she knows her oxygen level is good. It doesn't help when she sits upright as compared to being fairly recumbent. When she coughs she can feel mucus move around and it locks her airway at times. She denied chest pain, nausea, fevers, chills, or lightheadedness. She is appreciative of the Torres catheter as she doesn't feel she would tolerate diuresis due to recent incontinence. She has noted some recent rectal bleeding which he attributes to hemorrhoids. Objective Vital signs: Temperature 97.1 F 01/18/17 08:00 Pulse Rate 92 01/18/17 08:00 Respiratory Rate 16 01/18/17 14:38 Blood Pressure 135/72 01/18/17 08:00 Pulse Oximetry 93 01/18/17 14:38 I/O 798/4375 EXAM General-NAD, alert HEENT-conjunctiva clear, oropharynx clear Lungs-respirations nonlabored, good airflow, audible wheezing without stethoscope-greatest over proximal airway/trachea; wheezing present posterior and anterior lung schmitt today, on 2 L supplemental oxygen per nasal cannula Cardiac-regular rhythm, S1-S2 Abd-obese, soft, nontender, bowel sounds present Ext-+2 edema feet, +1 legs-softer today than yesterday; faint erythema mid/ distal shins Neuro-MAEW Psych-oriented 3, euthymic - Height/Weight/BMI: Height 1.55 m Weight 124.5 kg Body Mass Index 51.9 Results - Labs CBC & Chem 7: 01/17/17 13:18 01/18/17 04:59 Labs: Respiratory viral panel positive for rhinovirus Microbiology Results: Microbiology 01/17/17 18:10 Sputum, Expectorated Gram Stain -many WBCs, few gram- positive cocci in pairs 01/17/17 18:10 Sputum, Expectorated Sputum Culture - Preliminary Urine culture 01/17/17 50-100,000 colonies gram-negative rubens - ABG Interpretation Attestation: I reviewed and interpreted this ABG. (compensated hypercarbia) ABG results: 01/18/17 07:05 ABG pH 7.423 ABG pCO2 56 H ABG pO2 82 ABG HCO3 36 H ABG Total CO2 38 H ABG O2 Saturation 96.0 ABG Base Excess 10.0 H Assessment and Plan (1) Acute CHF (congestive heart failure) Current visit: Yes Status: Acute (2) NYHA Class IV cardiovascular function Current visit: Yes Status: Acute (3) Acute and chronic respiratory failure Current visit: Yes Status: Acute DVT Prophylaxis: SCD's, Lovenox Resuscitation Status: Full Code Assessment and Plan: Impression: Acute Congestive Heart Failure COPD exacerbation Acute on Chronic Respiratory Failure-hypoxic/hypercarbic Fluid overload NYHA CHF Class IV DM2 HTN Morbid obesity Bilateral nephrolithiasis Urinary urgency with incontinence Chronic loose stools Rhinovirus infection/URI-POA Plan: Overnight oximetry obtained on 2 L supplemental oxygen demonstrating minor desaturations. About 7 minutes less than 90%. Diuresing well, continue Lasix. Rhinovirus positive and continues to wheeze extensively with upper airway sounds and patient reports of mucous plugging. Mucinex LA added at 1200 mg twice a day, continue breathing treatments. Doxycycline switched to oral administration. Anticipate alternate antibiotics when cultures available-some limitations due to allergies. Continue oral steroids, prednisone dose dropped [address] Conklin consulted. Echocardiogram in a.m. Last A1c about one year ago-recheck. Blood pressure stable on current regimen. Overnight oximetry and telemetry's reviewed by myself, laboratory data reviewed , discussed with Dr. Conklin. Sepsis Assessment - Evaluation Sepsis screening result: No Definite Risk Hospital Course Summary Disclaimer: The visit summary below is not to be considered part of the above Progress Note. Hospital Course: 01/17/17 Admit to inpatient. *CV: Continue IV diuresis. Assess 2D Echo for EF. Add beta-kelly, JOCELYN/ARB as appropriate. Continue O2. CTA obtained- a bit limited due to artifact. Start prophylaxis lovenox. *Pulm: Continue O2. Nebs. Diurese. Add doxycycline for URI. No acute evidence of pneumonia. *DM2- Continue home medications as appropriate. Monitor accuchecks. *Loose stool- Hold home code liver oil May need outpatient endoscopy when more stable. *Urinary frequency, Urgency Urine cx pending. Bilateral hydronephrosis. May need to obtain CT abdomen/pelvis, as similar sx with prior kidney stones. Torres for now due to significant respiratory distress. 01/18/17 Overnight oximetry obtained on 2 L supplemental oxygen demonstrating minor desaturations. About 7 minutes less than 90%. Diuresing well, continue Lasix. Rhinovirus positive and continues to wheeze extensively with upper airway sounds and patient reports of mucous plugging. Mucinex LA added at 1200 mg twice a day, continue breathing treatments. Doxycycline switched to oral administration. Anticipate alternate antibiotics when cultures available-some limitations due to allergies. Continue oral steroids, prednisone dose dropped [address] Conklin consulted. Echocardiogram in a.m. Last A1c about one year ago-recheck. Blood pressure stable on current regimen.
[2017-01-18] MEDS: GUAIFENESIN LA 600 MG TABLET PO SCH ×2 (16:42→21:58)
--- NOTE | 2017-01-18 17:18 | CT Scan Report ---
Indication: dyspnea PROCEDURE: CT angio pulm emboli: Encounter: Initial Comparison: CT renal dated December 08, 2014 Technique: Axial CT pulmonary angiographic phase images were performed through the chest after the administration of intravenous contrast. Coronal and Sagittal MIP reconstructed images were created and reviewed. Automated Exposure Control and Iterative Reconstruction dose reducing techniques were utilized. Contrast: Omnipaque 350 74 mL Findings: Pulmonary arteries: Exam is diagnostic to the interlobar pulmonary artery only. Segmental and subsegmental pulmonary artery branches cannot be well evaluated due to contrast bolus timing and motion artifact no definite filling defects identified to confirm a pulmonary embolus. Central pulmonary arteries appear mildly enlarged. Other findings: Small right pleural effusion. Trace fluid along the right minor fissure. No pneumothorax. No lobar pneumonia. No pulmonary masses. The central airways are patent. No axillary or mediastinal adenopathy. Heart is mildly enlarged. No pericardial effusion. Small amount of perihepatic ascites. Stable cystic liver lesions probably representing benign cysts. Gallbladder is mildly distended. Multiple large renal stones bilaterally. Impression: 1. No large or central pulmonary embolus. Possible pulmonary artery hypertension. 2. Right pleural effusion and ascites of uncertain etiology. Findings could represent volume overload or CHF. Gallbladder disease is also a consideration. Right upper quadrant ultrasound may be helpful for further evaluation as clinically indicated. There is a preliminary report by [facility]. .
--- NOTE | 2017-01-18 17:20 | XRay Report ---
INDICATION: dyspnea PROCEDURE: CHEST 2-VIEWS UPRIGHT (PA & LAT) Encounter: Initial COMPARISON: CT angiogram of the chest from the same date FINDINGS: Evaluation of the lung bases is limited due to overlapping soft tissue. No focal pneumonia or pneumothorax. Trace pleural effusions are better seen on the CT. Cardiac silhouette is mildly enlarged. Mediastinal contours are normal. Pulmonary arteries are prominent centrally. Degenerative change in the spine and shoulders. Impression: 1. No focal pneumonia. Mild pulmonary edema or CHF. 2. Possible pulmonary artery hypertension. .
[2017-01-18] MEDS ORDERED: DOXYCYCLINE 100 MG in NS 250ml 250 ML IV SCH (18:00)
[2017-01-19] MEDS: SALINE FLUSH 10ml SYRINGE IVF PRN ×3 (00:51→20:55)
[2017-01-19] MEDS: FUROSEMIDE 40 MG/4 ML INJECTION IVP SCH ×2 (00:51→08:28)
[2017-01-19] MEDS: ENOXAPARIN 30 MG/0.3 ML INJECTION SQ SCH ×2 (05:46→17:24)
[2017-01-19] MEDS: ALBUTEROL 2.5mg/3ml (0.083%) NEB AEROSOL SCH ×4 (07:28→18:57)
[2017-01-19] MEDS: GLIMEPIRIDE 2 MG TABLET PO SCH (08:29)
[2017-01-19] MEDS: GUAIFENESIN LA 600 MG TABLET PO SCH ×2 (08:29→20:54)
[2017-01-19] MEDS: CARVEDILOL 6.25 MG TABLET PO SCH ×2 (08:29→17:22)
[2017-01-19] MEDS: LOSARTAN 50 MG TABLET PO SCH (08:30)
--- NOTE | 2017-01-19 10:40 | Progress Note ---
<Shonda Gonzalez V - Last Filed: 01/19/17 10:36> Subjective: Flower is seen today in follow up following her bath. She reports that she feels short of breath and "tired" from bathing and changing. She is feeling more short of breath currently with increased wheezing. She denies having any pain on exam. She does inquire about a medication for urinary incontinence. She also verbalizes her concern of discharging home as she has 18 steps to walk up. She wants to discuss a anti-anxiety medication. Currently on 2 liters of oxygen by nasal canula. Objective Vital signs: Temperature 98.5 F 01/19/17 07:49 Pulse Rate 87 01/19/17 07:49 Respiratory Rate 18 01/19/17 07:49 Blood Pressure 135/73 01/19/17 07:49 Pulse Oximetry 96 01/19/17 07:49 Height/Weight/BMI: Height 1.55 m Weight 120 kg Body Mass Index 51.9 - Constitutional Present: mild distress, well nourished, well developed - Routine HEENT Exam Eye: Present: EOMI ENT: Present: mucous membranes moist, dentition normal - Routine Respiratory Exam Present: wheezes - Routine Cardiovascular Exam Present: RRR, S1, S2. Absent: murmur - Routine Abdominal Exam Present: soft, normoactive bowel sounds, non distended. Absent: tenderness - Routine Extremities Exam Present: edema (bilateral lower ext), pulses intact, normal capillary refill - Routine Back/Spine/Pelvis Exam Back/Spine: Present: full ROM - Routine Skin Exam Present: intact, dry, warm - Routine Neurological Exam Present: alert, oriented X3, CN II-XII intact, moving all extremities - Routine Lymphatic Exam Lymphatic: Absent: adenopathy - Routine Psychiatric Exam Present: normal affect, normal thought process Results - Labs CBC & Chem 7: 01/19/17 04:43 01/19/17 04:43 Microbiology Results: Microbiology 01/17/17 18:10 Sputum, Expectorated Gram Stain - Final 01/17/17 18:10 Sputum, Expectorated Sputum Culture - Preliminary Normal Respiratory Nikolai - ABG Interpretation ABG results: 01/18/17 07:05 ABG pH 7.423 ABG pCO2 56 H ABG pO2 82 ABG HCO3 36 H ABG Total CO2 38 H ABG O2 Saturation 96.0 ABG Base Excess 10.0 H Assessment and Plan (1) Acute CHF (congestive heart failure) Current visit: Yes Status: Acute (2) NYHA Class IV cardiovascular function Current visit: Yes Status: Acute (3) Acute and chronic respiratory failure Current visit: Yes Status: Acute Assessment and Plan: Impression: Acute Congestive Heart Failure COPD exacerbation Acute on Chronic Respiratory Failure-hypoxic/hypercarbic Fluid overload NYHA CHF Class IV DM2 HTN Morbid obesity Bilateral nephrolithiasis Urinary urgency with incontinence Chronic loose stools Rhinovirus infection/URI-POA 01/19-Plan: Continues oxygen 2 liters by nasal cannula to maintain saturations. Continue nebulizers and Mucinex LA. Consult placed for Dr. Conklin for further pulmonary recommendations. Sputum culture reveals normal respiratory nikolai. She has continued on Doxycycline Continue with diuresis. Lasix 40 milligrams daily. Weight has trended down approximately 5 kilograms since admission. Continue on prednisone 40 milligrams daily to help with pulmonary inflammation Urine culture did reveal positive for Escherichia coli. Will have to discuss antibiotic coverage further with attending. Also consider starting Oxybutynin for chronic urinary incontinence Continue to monitor blood sugars, overall, these appear to be well controlled. Continue Amaryl, sliding scale NovoLog Lovenox SQ daily for DVT prophylaxis Echocardiogram read pending Will discuss further orders and plan of care with attending, Dr. Larsen Sepsis Assessment - Evaluation Sepsis screening result: No Definite Risk Hospital Course Summary Disclaimer: The visit summary below is not to be considered part of the above Progress Note. Hospital Course: 01/17/17 Admit to inpatient. *CV: Continue IV diuresis. Assess 2D Echo for EF. Add beta-kelly, JOCELYN/ARB as appropriate. Continue O2. CTA obtained- a bit limited due to artifact. Start prophylaxis lovenox. *Pulm: Continue O2. Nebs. Diurese. Add doxycycline for URI. No acute evidence of pneumonia. *DM2- Continue home medications as appropriate. Monitor accuchecks. *Loose stool- Hold home code liver oil May need outpatient endoscopy when more stable. *Urinary frequency, Urgency Urine cx pending. Bilateral hydronephrosis. May need to obtain CT abdomen/pelvis, as similar sx with prior kidney stones. Torres for now due to significant respiratory distress. 01/18/17 Overnight oximetry obtained on 2 L supplemental oxygen demonstrating minor desaturations. About 7 minutes less than 90%. Diuresing well, continue Lasix. Rhinovirus positive and continues to wheeze extensively with upper airway sounds and patient reports of mucous plugging. Mucinex LA added at 1200 mg twice a day, continue breathing treatments. Doxycycline switched to oral administration. Anticipate alternate antibiotics when cultures available-some limitations due to allergies. Continue oral steroids, prednisone dose dropped [address] Conklin consulted. Echocardiogram in a.m. Last A1c about one year ago-recheck. Blood pressure stable on current regimen. 01/19-Plan: Continues oxygen 2 liters by nasal cannula to maintain saturations. Continue nebulizers and Mucinex LA. Consult placed for Dr. Conklin for further pulmonary recommendations. Sputum culture reveals normal respiratory nikolai. She has continued on Doxycycline Continue with diuresis. Lasix 40 milligrams daily. Weight has trended down approximately 5 kilograms since admission. Continue on prednisone 40 milligrams daily to help with pulmonary inflammation Urine culture did reveal positive for Escherichia coli. Will have to discuss antibiotic coverage further with attending. Also consider starting Oxybutynin for chronic urinary incontinence Continue to monitor blood sugars, overall, these appear to be well controlled. Continue Amaryl, sliding scale NovoLog Lovenox SQ daily for DVT prophylaxis Echocardiogram read pending Will discuss further orders and plan of care with attending, Dr. Larsen <Nadya Larsen - Last Filed: 01/19/17 18:11> Objective Vital signs: Temperature 97.7 F 01/19/17 16:00 Pulse Rate 87 01/19/17 07:49 Respiratory Rate 20 01/19/17 16:00 Blood Pressure 157/85 H 01/19/17 16:00 Pulse Oximetry 93 01/19/17 16:00 Height/Weight/BMI: Height 1.55 m Weight 120 kg Body Mass Index 51.9 Results - Labs CBC & Chem 7: 01/19/17 04:43 01/19/17 04:43 Microbiology Results: Microbiology 01/17/17 18:10 Sputum, Expectorated Gram Stain - Final 01/17/17 18:10 Sputum, Expectorated Sputum Culture - Preliminary Normal Respiratory Nikolai - ABG Interpretation ABG results: 01/18/17 07:05 ABG pH 7.423 ABG pCO2 56 H ABG pO2 82 ABG HCO3 36 H ABG Total CO2 38 H ABG O2 Saturation 96.0 ABG Base Excess 10.0 H Assessment and Plan (1) Acute CHF (congestive heart failure) Current visit: Yes Status: Acute (2) NYHA Class IV cardiovascular function Current visit: Yes Status: Acute (3) Acute and chronic respiratory failure Current visit: Yes Status: Acute Assessment and Plan: I have independently evaluated and examined this patient. I reviewed the chart, the patient's history, and the DAMPENER OPERATOR/PA's documented findings as above. We discussed and formulated the assessment and plan as above with additions as below: Mrs. Austin reports that her breathing feels a little more labored today than it did yesterday. She is frustrated that nursing is not letting her get out of bed and is making her use bedside commode. She feels weaker than usual and hopes to start something to help with urinary incontinence. Patient is alert and respirations were nonlabored when seen Breath sounds are slightly coarse bilaterally with prolonged expiratory phase and faint expiratory wheezing bilateral lung schmitt +2 bilateral lower extremity edema Weight down 5 kg from admission TSH 3.07, A1c 6.5 Telemetry strips reviewed-sinus rhythm Echocardiogram reported to be technically difficult but with ejection fraction 58%, LVH, PA pressure 38 and trace TR/IA. Sputum culture-normal nikolai Urine culture with Escherichia coli and patient has significant underlying nephrolithiasis. Has failed to recent 5 day courses of antibiotics and will likely require prolonged oral antibiotics. Will ask Dr. Resendiz to assess due to stone burden/infections/and development of urinary incontinence. Discontinue doxycycline, Bactrim DS initiated for Escherichia coli UTI. BUN/creatinine climbing-Lasix decreased to daily from every [address] Conklin, anticipate ventilatory support via mask to vent at discharge. PT/OT consults. Hospital Course Summary Disclaimer: The visit summary below is not to be considered part of the above Progress Note.
--- NOTE | 2017-01-19 12:36 | Pulmonology Consult Note ---
History of Present Illness Consult date: 01/19/17 Requesting physician: Nadya Larsen Reason for consult: dyspnea, cough History of present illness: Flower is a 71 year old morbidly obese female known to me from the outpatient setting. She has severe asthma/copd overlap syndrome. She is quite disabled from her breathing issues and in fact states that she has not been able to get out of the house for the past year or more due to severe shortness of breath. She is normally managed on O2 at 2-3 lpm. She is on prednisone 15 mg daily, Ventolin HFA prn. She has DM, essential HTN. in the past 2-3 days she started having nasal stuffiness and sore throat. This seemed to indicate to her that she was coming down with a URTI. The patient then developed dyspnea and could not catch her breath. Because of this she was [place] [facility] [place]. She denies history of heart disease or CHF. She did undergo a heart cath by Dr. Roberts and [facility] 2-3 years ago, which she reports as normal. She has not needed to follow up with Dr. Roberts. She does have a history of DM2, which she attributes to frequent steroid use. She has recently tried to diet without much success. She is unclear if she has gained or lost weight. She was previously on Lasix, which she stopped due to urinary incontinence. She reports needing to urinate Q 20 minutes, with urgency, frequency, and incontinence. She states a sharp pain prior to need to urinate. Upon review of her record, she has had extensive history of kidney stones with hydronephrosis requiring intervention by Dr. Resendiz. She reported urgency and incontinence in the past with her prior kidney stone occurrences. She denies any fever or chills. Reports that she has been coughing up yellow sputum. No abdominal c/o, no N/V/D. Does reports some soft stool, but need to strain when having BM. One incidence of blood in stool, which she attributes to hemorrhoids. Reports and abdominal protrusion at site of prior hiatal hernia repair. She reports chronic right hip pain, worse with ambulation and intermittent "giving out" when trying to walk. Denies recent fall or injury. Review of Systems Comprehensive ROS: completed and no additional positive findings except those as stated - Constitutional Constitutional: Present: as per HPI, fatigue, weakness. Absent: chills - EENMT Eyes: Present: as per HPI - Cardiovascular Cardiovascular: Present: dyspnea on exertion, orthopnea, edema, as per HPI. Absent: chest pain, heart murmur Rhythm: Present: regular rhythm Vascular: Present: see HPI - Respiratory Respiratory: Present: as per HPI, cough, dyspnea, dyspnea on exertion, wheezing , chest congestion - Gastrointestinal Gastrointestinal: Present: as per HPI, change in bowel habits, change in stool character, melena - Genitourinary Genitourinary: Present: as per HPI, urinary frequency, urinary incontinence, urinary urgency - Musculoskeletal Musculoskeletal: Present: as per HPI, abnormal gait, limited range of motion - Neurological Neurological: Present: as per HPI PFSH COPD/Asthma- Katerin Chronic hypoxemia- O2 at 2-3L HTN Pneumonia DM2 Hydronephrosis/Kidney stones. Chronic loose stool Chronic edema. Surgical History: Hiatal hernia. Cholecystectomy. Multiple Nasal Polypectomy. Hysterectomy. Bunionectomy. Colonoscopy. Cystoscopy with renal stent placement Family History: F- HTN/Colon CA M-BrCA - Social History Smoking status: Never smoker Substance use type: does not use Alcohol intake frequency: does not drink Housing: house Household members: spouse Current occupational status: retired, disabled Current residence: Independent Living Review of Systems All systems: reviewed and no additional remarkable complaints except as stated PFSH Patient Stated Medical History Cataracts Yes Asthma Yes Bronchitis Yes Chronic Obstructive Pulmonary Yes Disease (COPD) Pneumonia Yes Pulmonary Edema Yes Diabetes Mellitus Type 2 Yes Hiatal Hernia Yes: 1986 Hx Incontinence Yes Hx Kidney Stones Yes Hx Urinary Tract Infection Yes Anemia Yes Surgical History: Hiatal hernia. Cholecystectomy. Multiple Nasal Polypectomy. Hysterectomy. Bunionectomy. Colonoscopy. Cystoscopy with renal stent placement - Social History Smoking status: Never smoker Current residence: Independent Living Medications Home Medications Medication Instructions Recorded Confirmed Type Albuterol Sulfate [Ventolin Hfa] 1 puff IH BID PRN #0 08/09/13 01/17/17 History Cod Liver Oil 1 cap PO DAILY 01/17/17 01/17/17 History Glimepiride [Amaryl] 2 mg PO DAILY 01/17/17 01/17/17 History Ibuprofen 200 mg PO Q4H PRN 01/17/17 01/17/17 History Losartan [Cozaar] 25 mg PO DAILY 01/17/17 01/17/17 History Potassium Chloride [K-Dur] 20 meq PO DAILY 01/17/17 01/17/17 History PredniSONE [Deltasone] 15 mg PO DAILY 01/17/17 01/17/17 History Vitamin D 1 tab PO DAILY 01/17/17 01/17/17 History Allergies Allergy/AdvReac Type Severity Reaction Status Date / Time amoxicillin Allergy Mild Verified 01/17/17 17:34 ciprofloxacin Allergy Mild Verified 01/17/17 17:34 ipratropium Allergy Mild Verified 01/17/17 17:34 Atrovent Allergy Mild Uncoded 01/17/17 17:34 Exam Vital signs: Temperature 98.5 F 01/19/17 07:49 Pulse Rate 87 01/19/17 07:49 Respiratory Rate 24 01/19/17 11:17 Blood Pressure 135/73 01/19/17 07:49 Pulse Oximetry 94 01/19/17 11:17 - Constitutional no acute distress, obese - Routine HEENT Exam Head: Present: normocephalic, atraumatic Eye: Present: EOMI, PERRL ENT: Present: mucous membranes moist Throat: normal inspection - Routine Neck Exam Present: supple, full ROM - Routine Respiratory Exam Present: accessory muscle use, prolonged expiratory phase - Routine Cardiovascular Exam Present: RRR, S1, S2 - Routine Abdominal Exam Present: soft, normoactive bowel sounds. Absent: guarding - Routine Extremities Exam Present: edema. Absent: cyanosis, clubbing - Routine Neurological Exam Present: alert, oriented X3. Absent: motor deficit - Routine Psychiatric Exam Present: normal affect Results - Laboratory Findings CBC and BMP: 01/19/17 04:43 01/19/17 04:43 ABG ABG pH 7.423 (7.350-7.450) 01/18/17 07:05 ABG pCO2 56 MMHG (34-45) H 01/18/17 07:05 ABG pO2 82 MMHG (80-100) 01/18/17 07:05 ABG O2 Saturation 96.0 % (95.0-98.0) 01/18/17 07:05 PT/INR, D-dimer D-Dimer 405 NG/ML (0-230) H 01/17/17 13:19 Abnormal lab findings: Abnormal Labs 01/17/17 01/18/17 01/18/17 17:48 04:59 07:05 Hgb MCHC RDW Std Deviation MPV Neut % (Auto) Lymph % (Auto) ABG pCO2 56 H ABG HCO3 36 H ABG Total CO2 38 H ABG Base Excess 10.0 H Sodium 147 H Carbon Dioxide 34 H BUN 28.0 H BUN/Creatinine Ratio 31 H Calculated Osmolality 288 H Phosphorus 4.7 H Entero/Rhino (PCR) Detected A 01/19/17 01/19/17 04:43 04:43 Hgb 11.9 L MCHC 30.7 L RDW Std Deviation 51.8 H MPV 9.0 L Neut % (Auto) 68.4 H Lymph % (Auto) 20.7 L ABG pCO2 ABG HCO3 ABG Total CO2 ABG Base Excess Sodium 146 H Carbon Dioxide 38 H BUN 39.0 H BUN/Creatinine Ratio 36 H Calculated Osmolality 290 H Phosphorus Entero/Rhino (PCR) Assessment and Plan (1) Acute and chronic respiratory failure with hypercapnia Current visit: Yes Status: Acute (2) Morbid obesity with BMI of 50.0-59.9, adult Current visit: Yes Status: Acute ABG reveals that baseline pCO2 is 56. With her chronic hypoxemia I believe she is a good candidate for home ventilation via face mask. The patient is high risk for recurrent respiratory failure, hospitalization, mobidity and due to her respiratory disease. Home ventilation via face mask will reduce the risk for hospitalization and . (3) Asthma-COPD overlap syndrome Current visit: Yes Status: Acute Continue prednisone burst and taper. Was on 15 mg prednisone at home. Neb albuterol/ipratropium (4) Rhinovirus Current visit: Yes Status: Acute seems to be the cause for her exacerbation. Supportive care. Add Acapella for mucus clearance.
--- NOTE | 2017-01-19 14:17 | Echocardiogram ---
DATE OF PROCEDURE January 19, [address] Nadya Larsen This is a two-dimensional echo with spectral Doppler, color-flow and M-mode. It was obtained in a patient with congestive heart failure. This is a technically very difficult study. Left atrial dimension is normal. Left ventricle end-diastolic dimension is normal. Left ventricle wall thickness is increased. LV systolic function is normal with ejection fraction of 58%. Right atrium is normal. Right ventricle is normal. Aortic root dimension is normal. Mitral valve appears to be normal with trace of mitral regurgitation. Aortic valve was not visualized well. However, Doppler studies indicate no stenosis or insufficiency. Tricuspid valve shows trace of tricuspid regurgitation with mild pulmonary hypertension with estimated pulmonary artery systolic pressure of 38. Pulmonary valve shows trace of pulmonary insufficiency. There is no pericardial effusion. IMPRESSION 1. Technically very difficult study. 2. Normal LV systolic function with ejection fraction of 58%. 3. Left ventricular hypertrophy. 4. Trace of mitral regurgitation. 5. Trace of tricuspid regurgitation with mild pulmonary hypertension with estimated pulmonary artery systolic pressure of 38. 6. Trace of pulmonary insufficiency. [facility]
[2017-01-19] MEDS: INSULIN ASPART 100unit/ml INJECTION SQ PRN ×2 (14:45→21:06)
[2017-01-19] MEDS: SULFAMETHOXAZOLE/TMP 800 MG/160 MG DS TABLET PO SCH ×2 (18:58→23:40)
[2017-01-19] MEDS: ALBUTEROL 2.5mg/3ml (0.083%) NEB AEROSOL PRN (22:32)
[2017-01-20] MEDS ORDERED: FALL RISK - PHARMACY CONSULT MC PRN (01:05)
[2017-01-20] MEDS: ENOXAPARIN 30 MG/0.3 ML INJECTION SQ SCH ×2 (06:34→17:58)
[2017-01-20] MEDS: ALBUTEROL 2.5mg/3ml (0.083%) NEB AEROSOL SCH ×4 (06:52→19:09)
[2017-01-20] MEDS ORDERED: PredniSONE 10 MG TABLET PO SCH (08:00)
[2017-01-20] MEDS ORDERED: FUROSEMIDE 40 MG/4 ML INJECTION IVP SCH (09:00)
[2017-01-20] MEDS: LOSARTAN 50 MG TABLET PO SCH (09:14)
[2017-01-20] MEDS: GLIMEPIRIDE 2 MG TABLET PO SCH (09:14)
[2017-01-20] MEDS: SULFAMETHOXAZOLE/TMP 800 MG/160 MG DS TABLET PO SCH ×2 (09:15→21:26)
[2017-01-20] MEDS: CARVEDILOL 6.25 MG TABLET PO SCH ×2 (09:15→17:58)
[2017-01-20] MEDS: GUAIFENESIN LA 600 MG TABLET PO SCH ×2 (09:15→21:26)
--- NOTE | 2017-01-20 15:03 | Progress Note ---
<Shonda Gonzalez V - Last Filed: 01/20/17 14:53> Subjective: Flower is seen this afternoon, resting in bed. She reports that she has been up several times with nursing staff, however, gets significantly short of breath. She did sit up on the edge of the bed for approximately 30 minutes, however, requested to lie back down. She continues to feel "short of breath/winded" with her breathing. She denies having chest pain. Appetite is fair. Weight continues to trend down slowly. Objective Vital signs: Temperature 97.7 F 01/20/17 07:40 Pulse Rate 84 01/20/17 07:40 Respiratory Rate 20 01/20/17 14:36 Blood Pressure 126/88 01/20/17 07:40 Pulse Oximetry 93 01/20/17 14:36 Height/Weight/BMI: Height 1.55 m Weight 119.4 kg Body Mass Index 51.9 - Constitutional Present: well nourished, well developed - Routine HEENT Exam Eye: Present: EOMI ENT: Present: mucous membranes moist, dentition normal - Routine Respiratory Exam Present: wheezes - Routine Cardiovascular Exam Present: RRR, S1, S2. Absent: murmur - Routine Abdominal Exam Present: soft, normoactive bowel sounds, non distended. Absent: tenderness - Routine Extremities Exam Present: edema (bilateral lower ext), pulses intact - Routine Skin Exam Present: intact, dry, warm - Routine Neurological Exam Present: alert, oriented X3, moving all extremities - Routine Lymphatic Exam Lymphatic: Absent: adenopathy - Routine Psychiatric Exam Present: normal affect Results - Labs CBC & Chem 7: 01/19/17 04:43 01/20/17 09:33 Microbiology Results: Microbiology 01/17/17 18:10 Sputum, Expectorated Gram Stain - Final 01/17/17 18:10 Sputum, Expectorated Sputum Culture - Final Normal Respiratory Nikolai - ABG Interpretation ABG results: 01/18/17 07:05 ABG pH 7.423 ABG pCO2 56 H ABG pO2 82 ABG HCO3 36 H ABG Total CO2 38 H ABG O2 Saturation 96.0 ABG Base Excess 10.0 H Assessment and Plan (1) Acute CHF (congestive heart failure) Current visit: Yes Status: Acute (2) NYHA Class IV cardiovascular function Current visit: Yes Status: Acute (3) Acute and chronic respiratory failure Current visit: Yes Status: Acute Assessment and Plan: Impression Acute Congestive Heart Failure COPD exacerbation Acute on Chronic Respiratory Failure-hypoxic/hypercarbic Fluid overload NYHA CHF Class IV DM2 HTN Morbid obesity Bilateral nephrolithiasis Urinary urgency with incontinence Chronic loose stools Rhinovirus infection/URI-POA 01/20/17- Plan Continue on Bactrim for treatment of Escherichia coli positive urine culture. Consult placed to Dr. Resendiz for further recommendations due to chronic renal stones, concern for cause of recurrent UTIs. Appreciate pulmonary consultation by Dr. Conklin. Will implement BiPAP tonight and see how patient tolerates. She may require Trilogy home chronically. Continues on steroids for pulmonary inflammation. Encourage patient to get up and ambulate 3 times a day. Did ask nursing staff to place recliner in patient's room and encourage patient to be up during supper to sit in the chair. PT and OT are consulted. Discuss further orders and plan of care with Dr Laresn Sepsis Assessment - Evaluation Sepsis screening result: No Definite Risk Hospital Course Summary Disclaimer: The visit summary below is not to be considered part of the above Progress Note. Hospital Course: 01/17/17 Admit to inpatient. *CV: Continue IV diuresis. Assess 2D Echo for EF. Add beta-kelly, JOCELYN/ARB as appropriate. Continue O2. CTA obtained- a bit limited due to artifact. Start prophylaxis lovenox. *Pulm: Continue O2. Nebs. Diurese. Add doxycycline for URI. No acute evidence of pneumonia. *DM2- Continue home medications as appropriate. Monitor accuchecks. *Loose stool- Hold home code liver oil May need outpatient endoscopy when more stable. *Urinary frequency, Urgency Urine cx pending. Bilateral hydronephrosis. May need to obtain CT abdomen/pelvis, as similar sx with prior kidney stones. Torres for now due to significant respiratory distress. 01/18/17 Overnight oximetry obtained on 2 L supplemental oxygen demonstrating minor desaturations. About 7 minutes less than 90%. Diuresing well, continue Lasix. Rhinovirus positive and continues to wheeze extensively with upper airway sounds and patient reports of mucous plugging. Mucinex LA added at 1200 mg twice a day, continue breathing treatments. Doxycycline switched to oral administration. Anticipate alternate antibiotics when cultures available-some limitations due to allergies. Continue oral steroids, prednisone dose dropped [address] Conklin consulted. Echocardiogram in a.m. Last A1c about one year ago-recheck. Blood pressure stable on current regimen. 01/19-Plan: Continues oxygen 2 liters by nasal cannula to maintain saturations. Continue nebulizers and Mucinex LA. Consult placed for Dr. Conklin for further pulmonary recommendations. Sputum culture reveals normal respiratory nikolai. She has continued on Doxycycline Continue with diuresis. Lasix 40 milligrams daily. Weight has trended down approximately 5 kilograms since admission. Continue on prednisone 40 milligrams daily to help with pulmonary inflammation Urine culture did reveal positive for Escherichia coli. Will have to discuss antibiotic coverage further with attending. Also consider starting Oxybutynin for chronic urinary incontinence Continue to monitor blood sugars, overall, these appear to be well controlled. Continue Amaryl, sliding scale NovoLog Lovenox SQ daily for DVT prophylaxis Echocardiogram read pending Will discuss further orders and plan of care with attending, Dr. Larsen 01/20/17- Continue on Bactrim for TX of UTI. Awaiting consult by Dr Resendiz for recommends of chronic renal calculi. Will try Bipap overnight as recommended by Dr Conklin. Encourage ambulation. <Nadya Larsen - Last Filed: 01/20/17 18:25> Objective Vital signs: Temperature 98.2 F 01/20/17 15:13 Pulse Rate 85 01/20/17 15:13 Respiratory Rate 18 01/20/17 15:13 Blood Pressure 156/63 H 01/20/17 15:13 Pulse Oximetry 91 01/20/17 15:13 Height/Weight/BMI: Height 1.55 m Weight 119.4 kg Body Mass Index 51.9 Results - Labs CBC & Chem 7: 01/19/17 04:43 01/20/17 09:33 Microbiology Results: Microbiology 01/17/17 18:10 Sputum, Expectorated Gram Stain - Final 01/17/17 18:10 Sputum, Expectorated Sputum Culture - Final Normal Respiratory Nikolai - ABG Interpretation ABG results: 01/18/17 07:05 ABG pH 7.423 ABG pCO2 56 H ABG pO2 82 ABG HCO3 36 H ABG Total CO2 38 H ABG O2 Saturation 96.0 ABG Base Excess 10.0 H Assessment and Plan (1) Acute and chronic respiratory failure Problem details: Hypoxic/chronic hypercarbia Current visit: Yes Status: Acute (2) Asthma-COPD overlap syndrome Problem details: With acute exacerbation Current visit: Yes Status: Acute (3) Acute CHF (congestive heart failure) Current visit: Yes Status: Acute Assessment and Plan: I have independently evaluated and examined this patient. I reviewed the chart, the patient's history, and the RESEARCH PROFESSIONAL/PA's documented findings as above. We discussed and formulated the assessment and plan as above with additions as below: Mrs. Austin reports she feels about the same yesterday with respect to her breathing and not as good as she did 2 days ago when she was on IV steroids. Exercise tolerance is poor but edema has improved. Weight was down another pound and a half overnight. We briefly discussed discontinuation of Torres catheter which patient is reluctant to consider due to recent urinary incontinence. Bladder training to be initiated. Was able to walk short distances using a walker with assistance of physical therapy earlier today. Poor endurance. Alert, cooperative, conjunctiva injected mildly Respirations nonlabored, breath sounds are coarse anteriorly-greatest over the proximal airways and trachea, expiratory wheezing present posterior lung schmitt. Trace lower extremity edema-significantly improved from admission. BiPAP trial to initiate this evening. Increase prednisone to 60 mg daily; convert to oral furosemide. Bladder training planned. Blood sugar control improved thus far today. Hospital Course Summary Disclaimer: The visit summary below is not to be considered part of the above Progress Note.
[2017-01-20] MEDS ORDERED: PredniSONE 20 MG TABLET PO ONE (18:13)
[2017-01-20] MEDS: INSULIN ASPART 100unit/ml INJECTION SQ PRN (21:26)
[2017-01-21] MEDS: ENOXAPARIN 30 MG/0.3 ML INJECTION SQ SCH ×2 (06:12→18:11)
[2017-01-21] MEDS: ALBUTEROL 2.5mg/3ml (0.083%) NEB AEROSOL SCH ×4 (07:25→19:19)
[2017-01-21] MEDS: PredniSONE 10 MG TABLET PO SCH (08:35)
[2017-01-21] MEDS: GUAIFENESIN LA 600 MG TABLET PO SCH ×2 (08:35→20:45)
[2017-01-21] MEDS: LOSARTAN 50 MG TABLET PO SCH (08:36)
[2017-01-21] MEDS: CARVEDILOL 6.25 MG TABLET PO SCH ×2 (08:36→18:11)
[2017-01-21] MEDS: FUROSEMIDE 40 MG TABLET PO SCH (08:36)
[2017-01-21] MEDS: SULFAMETHOXAZOLE/TMP 800 MG/160 MG DS TABLET PO SCH ×2 (08:37→20:45)
[2017-01-21] MEDS: SALINE FLUSH 10ml SYRINGE IVF PRN ×2 (08:37→20:46)
[2017-01-21] MEDS: GLIMEPIRIDE 2 MG TABLET PO SCH (08:37)
[2017-01-21] MEDS: INSULIN ASPART 100unit/ml INJECTION SQ PRN ×3 (10:44→20:46)
--- NOTE | 2017-01-21 15:21 | Progress Note ---
<Alejandrina Piedra - Last Filed: 01/21/17 15:17> Subjective: Flower was resting in bed, BiPAP off. While she feels better than she did when she first arrived, she is about the same compared to yesterday. She has mild conversational dyspnea, but was able to get up and walk around today. She denies any chest pain or dizziness. She is mostly concerned about her "pee-uria " - her term for urinary incontinence. For this reason, she is worried about taking the Torres out but understands the risk of infection. When the tubing is clamped she can feel the sensation of bladder fullness. She has a small annular lesion on her RLE that she's seen dermatology for (also for sunspots to her right forehead) - she was told it's not ringworm but doesn't know what it is either. Nonetheless, it's not bothersome. Objective Vital signs: Temperature 97.9 F 01/21/17 14:48 Pulse Rate 81 01/21/17 14:48 Respiratory Rate 22 01/21/17 14:48 Blood Pressure 150/73 H 01/21/17 14:48 Pulse Oximetry 90 01/21/17 14:48 Height/Weight/BMI: Height 1.55 m Weight 119 kg Body Mass Index 51.9 - Constitutional Present: no acute distress, well nourished, well developed, morbidly obese - Routine HEENT Exam Head: Present: cushingoid faces ENT: Present: mucous membranes moist, oropharynx clear - Routine Respiratory Exam Present: decreased breath sounds, wheezes - Routine Cardiovascular Exam Present: RRR, S1, S2 - Routine Abdominal Exam Present: soft, normoactive bowel sounds, non tender - Routine Extremities Exam Present: edema (trace to b/l lower ext.) - Routine Skin Exam Present: intact, dry, warm, lesions (LLE - annular erythemic lesion; chronic) - Routine Neurological Exam Present: alert, oriented X3, CN II-XII intact, normal speech - Routine Psychiatric Exam Present: normal affect, normal thought process, cooperative Results - Labs CBC & Chem 7: 01/21/17 04:18 01/21/17 04:18 Microbiology Results: Microbiology 01/17/17 18:10 Sputum, Expectorated Gram Stain - Final 01/17/17 18:10 Sputum, Expectorated Sputum Culture - Final Normal Respiratory Nikolai - ABG Interpretation ABG results: 01/18/17 07:05 ABG pH 7.423 ABG pCO2 56 H ABG pO2 82 ABG HCO3 36 H ABG Total CO2 38 H ABG O2 Saturation 96.0 ABG Base Excess 10.0 H Assessment and Plan (1) Acute CHF (congestive heart failure) Current visit: Yes Status: Acute (2) Acute and chronic respiratory failure Problem details: Hypoxic/chronic hypercarbia Current visit: Yes Status: Acute (3) Asthma-COPD overlap syndrome Problem details: With acute exacerbation Current visit: Yes Status: Acute DVT Prophylaxis: Lovenox Resuscitation Status: Full Code Assessment and Plan: ASSESSMENT Acute Congestive Heart Failure; Fluid overload; NYHA CHF Class IV COPD exacerbation Acute on Chronic Respiratory Failure-hypoxic/hypercarbic E. coli UTI DM2 HTN Morbid obesity Bilateral nephrolithiasis Urinary urgency with incontinence Chronic loose stools Rhinovirus infection/URI-POA PLAN Bladder retraining in progress - anticipate discontinuing Torres tomorrow. Dr. Larsen has discussed case with Dr. Oseguera, urology. CT renal ordered. Respiratory status about the same as yesterday. Tolerated BiPAP her first night , but it was difficult to sleep well with the mask. Continue BiPAP HS and Prednisone [address] Conklin evaluated her yesterday - recommends home ventilation via face mask; agrees with prednisone burst and taper; neb treatments, acapella. Electrolytes - improving. Na down to 144, K 4.3. Bicarb decreasing, now at 35. BUN slowly increasing - if this continues may need to change abx (on Bactrim for E. coli UTI). Hyperglycemia, readings ranging from 84 (fasting yesterday) to 236 (postprandial ). Increase SSI to medium corrective regimen. Continue glimepiride. Echo: EF 58%; trace valvular disease with mild PH. Sepsis Assessment - Evaluation Sepsis screening result: No Definite Risk Hospital Course Summary Disclaimer: The visit summary below is not to be considered part of the above Progress Note. Hospital Course: 01/17/17 Admit to inpatient. *CV: Continue IV diuresis. Assess 2D Echo for EF. Add beta-kelly, JOCELYN/ARB as appropriate. Continue O2. CTA obtained- a bit limited due to artifact. Start prophylaxis lovenox. *Pulm: Continue O2. Nebs. Diurese. Add doxycycline for URI. No acute evidence of pneumonia. *DM2- Continue home medications as appropriate. Monitor accuchecks. *Loose stool- Hold home code liver oil May need outpatient endoscopy when more stable. *Urinary frequency, Urgency Urine cx pending. Bilateral hydronephrosis. May need to obtain CT abdomen/pelvis, as similar sx with prior kidney stones. Torres for now due to significant respiratory distress. 01/18/17 Overnight oximetry obtained on 2 L supplemental oxygen demonstrating minor desaturations. About 7 minutes less than 90%. Diuresing well, continue Lasix. Rhinovirus positive and continues to wheeze extensively with upper airway sounds and patient reports of mucous plugging. Mucinex LA added at 1200 mg twice a day, continue breathing treatments. Doxycycline switched to oral administration. Anticipate alternate antibiotics when cultures available-some limitations due to allergies. Continue oral steroids, prednisone dose dropped [address] Conklin consulted. Echocardiogram in a.m. Last A1c about one year ago-recheck. Blood pressure stable on current regimen. 01/19-Plan: Continues oxygen 2 liters by nasal cannula to maintain saturations. Continue nebulizers and Mucinex LA. Consult placed for Dr. Conklin for further pulmonary recommendations. Sputum culture reveals normal respiratory nikolai. She has continued on Doxycycline Continue with diuresis. Lasix 40 milligrams daily. Weight has trended down approximately 5 kilograms since admission. Continue on prednisone 40 milligrams daily to help with pulmonary inflammation Urine culture did reveal positive for Escherichia coli. Will have to discuss antibiotic coverage further with attending. Also consider starting Oxybutynin for chronic urinary incontinence Continue to monitor blood sugars, overall, these appear to be well controlled. Continue Amaryl, sliding scale NovoLog Lovenox SQ daily for DVT prophylaxis Echocardiogram read pending Will discuss further orders and plan of care with attending, Dr. Larsen 01/20/17- Continue on Bactrim for TX of UTI. Awaiting consult by Dr Resendiz for recommends of chronic renal calculi. Will try Bipap overnight as recommended by Dr Conklin. Encourage ambulation. 01/21/17 Bladder retraining in progress - anticipate discontinuing Torres tomorrow. Dr. Larsen has discussed case with Dr. Oseguera, urology. CT renal ordered. Respiratory status about the same as yesterday. Tolerated BiPAP her first night , but it was difficult to sleep well with the mask. Continue BiPAP HS and Prednisone [address] Conklin evaluated her yesterday - recommends home ventilation via face mask; agrees with prednisone burst and taper; neb treatments, acapella. Electrolytes - improving. Na down to 144, K 4.3. Bicarb decreasing, now at 35. BUN slowly increasing - if this continues may need to change abx (on Bactrim for E. coli UTI). Hyperglycemia, readings ranging from 84 (fasting yesterday) to 236 (postprandial ). Increase SSI to medium corrective regimen. Continue glimepiride. Echo: EF 58%; trace valvular disease with mild PH. <Nadya Larsen - Last Filed: 01/21/17 22:29> Objective Vital signs: Temperature 97.9 F 01/21/17 14:48 Pulse Rate 74 01/21/17 16:05 Respiratory Rate 18 01/21/17 19:20 Blood Pressure 150/73 H 01/21/17 14:48 Pulse Oximetry 92 01/21/17 19:20 Height/Weight/BMI: Height 1.55 m Weight 119 kg Body Mass Index 51.9 Results - Labs CBC & Chem 7: 01/21/17 04:18 01/21/17 04:18 Microbiology Results: Microbiology 01/17/17 18:10 Sputum, Expectorated Gram Stain - Final 01/17/17 18:10 Sputum, Expectorated Sputum Culture - Final Normal Respiratory Nikolai - ABG Interpretation ABG results: 01/18/17 07:05 ABG pH 7.423 ABG pCO2 56 H ABG pO2 82 ABG HCO3 36 H ABG Total CO2 38 H ABG O2 Saturation 96.0 ABG Base Excess 10.0 H Assessment and Plan (1) Acute and chronic respiratory failure Problem details: Hypoxic/chronic hypercarbia Current visit: Yes Status: Acute (2) Asthma-COPD overlap syndrome Problem details: With acute exacerbation Current visit: Yes Status: Acute (3) Acute CHF (congestive heart failure) Current visit: Yes Status: Acute Assessment and Plan: I have independently evaluated and examined this patient. I reviewed the chart, the patient's history, and the PROCUREMENT COST COORDINATOR/PA's documented findings as above. We discussed and formulated the assessment and plan as above with additions as below: Mrs. Austin remains in good spirits but continues to have exertional dyspnea and wheezing. Her breathing is "not desperate" however says she feels she is making improvement. She tolerated BiPAP for most of the night last night but feels she'll have to adapt to it further before she can wear the mask for full night. She was able to walk from her room to the end of the hallway, rest, and return to her room which was improvement from recent days. Patient is alert and cooperative. Respirations are nonlabored with good airflow but faint expiratory wheezing persists with moderately coarse sounds over the proximal airways anteriorly. Abdomen obese, soft Trace lower extremity edema Discussed with Dr. Conklin-home mask to vent paperwork on the chart so equipment can be available at discharge. Continue BiPAP trials at bedtime. Dr. Oseguera consulted for urological concerns-case discussed with him and renal CT ordered to better define nephrolithiasis and determine if hydronephrosis present. Hope to begin tapering prednisone tomorrow if tolerates BiPAP tonight. CT ordered, discussed with Dr. Oseguera and Katerin, laboratory data reviewed. Hospital Course Summary Disclaimer: The visit summary below is not to be considered part of the above Progress Note.
--- NOTE | 2017-01-21 16:32 | Pulmonology Progress Note ---
Subjective Interval history: states that every 3 months (on average) has severe dyspnea spells. These cause her to take high doses of prednisone. still wheezing and coughing mild yellow sputum. Using bipap at night, 10/5. 2 lpm O2. Exam Vital signs: Temperature 97.9 F 01/21/17 14:48 Pulse Rate 81 01/21/17 14:48 Respiratory Rate 20 01/21/17 15:07 Blood Pressure 150/73 H 01/21/17 14:48 Pulse Oximetry 93 01/21/17 15:07 - Constitutional no acute distress, obese - Routine Neck Exam Present: supple, full ROM - Routine Respiratory Exam Present: wheezes, diminished air movement - Routine Cardiovascular Exam Present: RRR - Urinary Catheter Management Urethral Cath placed during this visit: yes Insertion date: 01/17/17 Insertion time: 13:40 Progress Note-A&P (1) Acute and chronic respiratory failure with hypercapnia Status: Acute Assessment and plan: recommend home vent to mask to reduce exacerbations, hospitalization and mortality. We will order Trilogy: PC IP 14, rate 12, Peep 6, Ti 0.9 sec, with 3 lpm O2 bled in) Current Visit: Yes (2) Morbid obesity with BMI of 50.0-59.9, adult Status: Acute Current Visit: Yes (3) Asthma-COPD overlap syndrome Problem details: With acute exacerbation Status: Acute Assessment and plan: wean prednisone as tolerated. Neb treatments q4h Current Visit: Yes (4) Rhinovirus Status: Acute Current Visit: Yes - Time Spent With Patient Total time spent is greater than 50% in coordination of care (as documented) at patient's floor/unit and/or counseling patient: less than 15 minutes Sepsis Assessment - Evaluation Sepsis screening result: No Definite Risk
--- NOTE | 2017-01-21 18:02 | Urology Consult Note ---
Urology HPI - Data of Consult Consult date: 01/21/17 Requesting Physician: Nadya Larsen MD Primary Care Provider: Jelani Anderson II, MD Family Provider: Jelani Anderson II, MD - Consult Narrative Reason for consult: BILATERAL NEPHROLITHIASIS History of present illness: 71-year-old female with morbid obesity and multiple medical comorbidities who was admitted to the hospital for respiratory distress. CT chest was done and showed bilateral nephrolithiasis. Patient denies flank pain or gross hematuria. She reports urinary incontinence that appears to be stress related. Reports a history of recurrent UTIs. She has underwent a right ureteroscopy by Dr. Resendiz in 2012. Her CT shows multiple large stones in her right kidney and multiple smaller stones in her left kidney. Note patient is on oxygen 24 hours a day. She does not. Her house and has very limited functional capacity. Review of Systems ROS unobtainable: due to endotracheal tube, due to mental status, other - Constitutional Constitutional: Present: fatigue - EENT Eyes: Absent: blurry vision, change in vision Nose: Absent: change in smell - Cardiovascular Cardiovascular: Present: dyspnea on exertion - Respiratory Respiratory: Present: cough, dyspnea - Genitourinary Genitourinary: Present: as per HPI - Musculoskeletal Musculoskeletal: Present: as per HPI, muscle weakness - Neurological Neurological: Present: as per HPI - Psychiatric Psychiatric: Absent: abnormal sleep pattern, anxiety, auditory hallucinations PFSH Patient Stated Medical History Cataracts Yes Asthma Yes Bronchitis Yes Chronic Obstructive Pulmonary Yes Disease (COPD) Pneumonia Yes Pulmonary Edema Yes Diabetes Mellitus Type 2 Yes Hiatal Hernia Yes: 1986 Hx Incontinence Yes Hx Kidney Stones Yes Hx Urinary Tract Infection Yes Anemia Yes Surgical History: Hiatal hernia. Cholecystectomy. Multiple Nasal Polypectomy. Hysterectomy. Bunionectomy. Colonoscopy. Cystoscopy with renal stent placement - Social History Current residence: Apartment/Private Home Medications Home Medications Medication Instructions Recorded Confirmed Type Albuterol Sulfate [Ventolin Hfa] 1 puff IH BID PRN #0 08/09/13 01/17/17 History Cod Liver Oil 1 cap PO DAILY 01/17/17 01/17/17 History Glimepiride [Amaryl] 2 mg PO DAILY 01/17/17 01/17/17 History Ibuprofen 200 mg PO Q4H PRN 01/17/17 01/17/17 History Losartan [Cozaar] 25 mg PO DAILY 01/17/17 01/17/17 History Potassium Chloride [K-Dur] 20 meq PO DAILY 01/17/17 01/17/17 History PredniSONE [Deltasone] 15 mg PO DAILY 01/17/17 01/17/17 History Vitamin D 1 tab PO DAILY 01/17/17 01/17/17 History Allergies Allergy/AdvReac Type Severity Reaction Status Date / Time amoxicillin Allergy Mild Verified 01/17/17 17:34 ciprofloxacin Allergy Mild Verified 01/17/17 17:34 ipratropium Allergy Mild Verified 01/17/17 17:34 Urology Results - Labs CBC & Chem 7: 01/21/17 04:18 01/21/17 04:18 Labs: Short CBC 01/21/17 Range/Units 04:18 WBC 7.1 (4.5-11.0) T/MM3 Hgb 11.6 L (12-16) GM/DL Hct 37.8 (36-46) % Plt Count 313 (130-400) T/MM3 BMP 01/21/17 04:18 Sodium 144 Potassium 4.3 D Chloride 101 Carbon Dioxide 35 H BUN 41.0 H Creatinine 1.2 Glucose 162 H Calcium 8.9 Urology Exam Vital signs: Temperature 97.9 F 01/21/17 14:48 Pulse Rate 74 01/21/17 16:05 Respiratory Rate 20 01/21/17 15:07 Blood Pressure 150/73 H 01/21/17 14:48 Pulse Oximetry 93 01/21/17 15:07 - Constitutional moderate distress, morbidly obese - HEENT Exam Head: Present: normocephalic Eye: Present: EOMI - Respiratory Exam Present: dyspnea - Cardiovascular Exam Present: RRR - Abdominal/Groin Exam Present: soft - Extremities Exam Present: edema - Neurological Exam Present: alert, oriented X3 - Psychiatric Exam Present: normal affect Assessment and Plan Bilateral nephrolithiasis Large stones in left kidney. > 3 cm total. Morbid obesity Plan: Based on the size of the stones patient needs a right PCNL to clear HER right kidney. However due to her morbid obesity and respiratory status she is a poor surgical candidate. PCNL requires the patient to be ventilated in the prone position for 2-3 hours and her respiratory reserve is very limited. I would recommend Pre-Op RISK stratification by pulmonary to accurately assess her risk for surgery Other modalities like a ureteroscopy and ESWL will have very low chances of clearing the stones completely especially on the right side. Recommend dedicated CT abdomen and pelvis to assess the ureters . If the patient has no obstructing stones and no hydronephrosis there is no need for immediate surgical intervention. We'll follow up on the imaging and pulmonary assessment. Thank you for the consult .Please call for any questions or concerns. Sepsis Assessment - Evaluation Sepsis screening result: No Definite Risk Hospital Course Summary Disclaimer: The visit summary below is not to be considered part of the above Progress Note. Hospital Course: 01/17/17 Admit to inpatient. *CV: Continue IV diuresis. Assess 2D Echo for EF. Add beta-kelly, JOCELYN/ARB as appropriate. Continue O2. CTA obtained- a bit limited due to artifact. Start prophylaxis lovenox. *Pulm: Continue O2. Nebs. Diurese. Add doxycycline for URI. No acute evidence of pneumonia. *DM2- Continue home medications as appropriate. Monitor accuchecks. *Loose stool- Hold home code liver oil May need outpatient endoscopy when more stable. *Urinary frequency, Urgency Urine cx pending. Bilateral hydronephrosis. May need to obtain CT abdomen/pelvis, as similar sx with prior kidney stones. Torres for now due to significant respiratory distress. 01/18/17 Overnight oximetry obtained on 2 L supplemental oxygen demonstrating minor desaturations. About 7 minutes less than 90%. Diuresing well, continue Lasix. Rhinovirus positive and continues to wheeze extensively with upper airway sounds and patient reports of mucous plugging. Mucinex LA added at 1200 mg twice a day, continue breathing treatments. Doxycycline switched to oral administration. Anticipate alternate antibiotics when cultures available-some limitations due to allergies. Continue oral steroids, prednisone dose dropped [address] Conklin consulted. Echocardiogram in a.m. Last A1c about one year ago-recheck. Blood pressure stable on current regimen. 01/19-Plan: Continues oxygen 2 liters by nasal cannula to maintain saturations. Continue nebulizers and Mucinex LA. Consult placed for Dr. Conklin for further pulmonary recommendations. Sputum culture reveals normal respiratory nikolai. She has continued on Doxycycline Continue with diuresis. Lasix 40 milligrams daily. Weight has trended down approximately 5 kilograms since admission. Continue on prednisone 40 milligrams daily to help with pulmonary inflammation Urine culture did reveal positive for Escherichia coli. Will have to discuss antibiotic coverage further with attending. Also consider starting Oxybutynin for chronic urinary incontinence Continue to monitor blood sugars, overall, these appear to be well controlled. Continue Amaryl, sliding scale NovoLog Lovenox SQ daily for DVT prophylaxis Echocardiogram read pending Will discuss further orders and plan of care with attending, Dr. Larsen 01/20/17- Continue on Bactrim for TX of UTI. Awaiting consult by Dr Resendiz for recommends of chronic renal calculi. Will try Bipap overnight as recommended by Dr Conklin. Encourage ambulation. 01/21/17 Bladder retraining in progress - anticipate discontinuing Torres tomorrow. Dr. Larsen has discussed case with Dr. Oseguera, urology. CT renal ordered. Respiratory status about the same as yesterday. Tolerated BiPAP her first night , but it was difficult to sleep well with the mask. Continue BiPAP HS and Prednisone [address] Conklin evaluated her yesterday - recommends home ventilation via face mask; agrees with prednisone burst and taper; neb treatments, acapella. Electrolytes - improving. Na down to 144, K 4.3. Bicarb decreasing, now at 35. BUN slowly increasing - if this continues may need to change abx (on Bactrim for E. coli UTI). Hyperglycemia, readings ranging from 84 (fasting yesterday) to 236 (postprandial ). Increase SSI to medium corrective regimen. Continue glimepiride. Echo: EF 58%; trace valvular disease with mild PH.
[2017-01-22] MEDS: ENOXAPARIN 30 MG/0.3 ML INJECTION SQ SCH ×2 (05:41→17:29)
[2017-01-22] MEDS: ALBUTEROL 2.5mg/3ml (0.083%) NEB AEROSOL SCH ×4 (06:52→19:10)
[2017-01-22] MEDS: PredniSONE 10 MG TABLET PO SCH (08:24)
[2017-01-22] MEDS: GUAIFENESIN LA 600 MG TABLET PO SCH ×2 (08:24→20:41)
[2017-01-22] MEDS: LOSARTAN 50 MG TABLET PO SCH (08:24)
[2017-01-22] MEDS: SULFAMETHOXAZOLE/TMP 800 MG/160 MG DS TABLET PO SCH ×2 (08:25→20:42)
[2017-01-22] MEDS: CARVEDILOL 6.25 MG TABLET PO SCH ×2 (08:25→17:29)
[2017-01-22] MEDS: GLIMEPIRIDE 2 MG TABLET PO SCH (08:25)
[2017-01-22] MEDS: FUROSEMIDE 40 MG TABLET PO SCH (08:25)
--- NOTE | 2017-01-22 09:03 | CT Scan Report ---
Indication: nephrolithiasis, ?hydro PROCEDURE: CT renal wo con ([facility]): Encounter: Initial Comparison: CT angiogram of the chest dated January 17, 2017 Technique: Axial CT images were performed through the abdomen and pelvis without intravenous contrast. Coronal and sagittal two-dimensional reformats. Automated Exposure Control and Iterative Reconstruction dose reducing techniques were utilized. Findings: Small right pleural effusion with right lower lobe atelectasis. The unenhanced contours of the liver show a small probable cyst in the right lobe. Gallbladder is unremarkable. The spleen, pancreas and adrenal glands are within normal limits. Multiple bilateral renal stones with a large stone in the right renal pelvis area, possibly a developing staghorn calculus. No definite ureteral stones. Bladder is compressed with Torres catheter. There is a large heterogeneous mass along the uterus. This is difficult to precisely measure on this noncontrast study. This could be arising from the uterus or either ovary. The cystic portion measures up to 12.2 x 7.6 x 9.2 cm in size. There is severe omental thickening and caking seen on axial image #66 measuring up to 3.6 cm in thickness. Scattered areas of omental and peritoneal studding and nodularity are seen. Fat-containing left abdominal ventral hernia. No evidence of a bowel obstruction. There is some nodularity seen in the low pelvis near the cervix and lower uterine segment. Bone windows show degenerative change and scoliosis in the spine. Impression: 1. Large pelvic mass probably representing a gynecologic malignancy that could be arising from the ovaries or uterus. Extensive omental metastatic disease. Gynecologic oncologic consultation is recommended. 2. Large bilateral renal stone burden with a developing staghorn calculus in the right kidney. There is a preliminary report by [facility]. .
[2017-01-22] MEDS: INSULIN ASPART 100unit/ml INJECTION SQ PRN ×3 (11:14→20:42)
--- NOTE | 2017-01-22 12:26 | Progress Note ---
Subjective: Mrs. Austin reports continued difficulty with her breathing and ongoing wheezing. She denied pain, nausea, dizziness, or constipation. She has occasional bladder spasms and is typically not aware of bladder distention until the Torres has been clamped about 2 hours. Objective Vital signs: Temperature 98.4 F 01/22/17 07:00 Pulse Rate 72 01/22/17 07:00 Respiratory Rate 24 01/22/17 11:24 Blood Pressure 151/66 H 01/22/17 07:00 Pulse Oximetry 94-2L 01/22/17 11:24 I/O 1980/2150 weight 119.4-stable EXAM General-NAD, alert, jovial HEENT-conjunctiva clear, sclera anicteric, oropharynx clear Lungs-diffuse expiratory wheezing anterior/posterior lung schmitt, fair airflow Cardiac-regular rhythm, heart tones obscured by wheezing at time of exam Abd-obese, soft, pelvic mass nonpalpable, bowel sounds present Ext-trace edema Neuro-moving upper extremities well, repositioning herself in bed with minimal difficulty Psych-calm, cooperative - Height/Weight/BMI: Height 1.55 m Weight 119.4 kg Body Mass Index 51.9 Results - Labs CBC & Chem 7: 01/22/17 05:13 01/22/17 05:13 Labs: Blood sugars 146-330 yesterday, 178-152 today CA-125 9910, CEA 1.96 Microbiology Results: Microbiology 01/17/17 18:10 Sputum, Expectorated Gram Stain - Final 01/17/17 18:10 Sputum, Expectorated Sputum Culture - Final Normal Respiratory Nikolai - ABG Interpretation ABG results: 01/18/17 07:05 ABG pH 7.423 ABG pCO2 56 H ABG pO2 82 ABG HCO3 36 H ABG Total CO2 38 H ABG O2 Saturation 96.0 ABG Base Excess 10.0 H - Imaging and Cardiology Abdominal x-ray Status: image reviewed by me (renal CT reviewed by myself and discussed with radiology-pelvic mass present 12 x 7.5 x 9 cm, severe omental thickening and caking, small pleural effusion but no significant ascites. Right staghorn calculus and stable left nephrolithiasis without obstruction or hydronephrosis bilaterally) Assessment and Plan (1) Acute and chronic respiratory failure Problem details: Hypoxic/chronic hypercarbia Current visit: Yes Status: Acute (2) Asthma-COPD overlap syndrome Problem details: With acute exacerbation Current visit: Yes Status: Acute (3) Acute CHF (congestive heart failure) Current visit: Yes Status: Acute DVT Prophylaxis: Lovenox Resuscitation Status: Full Code Assessment and Plan: ASSESSMENT Acute Congestive Heart Failure; Fluid overload; NYHA CHF Class IV COPD exacerbation Acute on Chronic Respiratory Failure-hypoxic/hypercarbic Pelvic mass, probable ovarian cancer E. coli UTI DM2, A1c 6.5 HTN Morbid obesity Bilateral nephrolithiasis, right staghorn calculus Urinary urgency with incontinence Chronic loose stools Rhinovirus infection/URI-POA PLAN Findings of renal CT reviewed with Mrs. Austin. I shared with her my concern that this represents an ovarian carcinoma. She's previously undergone hysterectomy but ovaries were left intact. She is at high surgical risk for pulmonary complications if debulking surgery were to be considered but wishes to discuss this further with Dr. Conklin and I have spoken with him to update him on findings. Additionally I've spoken with Dr. Montilla who will see the patient in consultation and offer recommendations. Management is complicated by the patient's limited mobility and difficulty getting to and from offices. Surgical intervention for nephrolithiasis not an option, continue antibiotics for UTI for 3 weeks and reassess urine after treatment completed. Suspect stones or infected. Tolerated BiPAP fairly well last night, will begin tapering prednisone. Blood sugars remain elevated with steroids, continue corrective insulin. Blood pressures modestly elevated but typically systolic around 150-do not believe additional interventions are needed. Further improvement anticipated with dropping steroids. Weight stable, continue oral Lasix at current dose. CT reviewed by myself, discussed with Dr. Conklin in Dr. Montilla, laboratory data reviewed. Lengthy discussion with patient. - Time spent with patient greater than 35 minutes Coordination of Care: >50% of visit spent providing counseling/coordination of care Sepsis Assessment - Evaluation Sepsis screening result: No Definite Risk Hospital Course Summary Disclaimer: The visit summary below is not to be considered part of the above Progress Note. Hospital Course: 01/17/17 Admit to inpatient. *CV: Continue IV diuresis. Assess 2D Echo for EF. Add beta-kelly, JOCELYN/ARB as appropriate. Continue O2. CTA obtained- a bit limited due to artifact. Start prophylaxis lovenox. *Pulm: Continue O2. Nebs. Diurese. Add doxycycline for URI. No acute evidence of pneumonia. *DM2- Continue home medications as appropriate. Monitor accuchecks. *Loose stool- Hold home code liver oil May need outpatient endoscopy when more stable. *Urinary frequency, Urgency Urine cx pending. Bilateral hydronephrosis. May need to obtain CT abdomen/pelvis, as similar sx with prior kidney stones. Torres for now due to significant respiratory distress. 01/18/17 Overnight oximetry obtained on 2 L supplemental oxygen demonstrating minor desaturations. About 7 minutes less than 90%. Diuresing well, continue Lasix. Rhinovirus positive and continues to wheeze extensively with upper airway sounds and patient reports of mucous plugging. Mucinex LA added at 1200 mg twice a day, continue breathing treatments. Doxycycline switched to oral administration. Anticipate alternate antibiotics when cultures available-some limitations due to allergies. Continue oral steroids, prednisone dose dropped [address] Conklin consulted. Echocardiogram in a.m. Last A1c about one year ago-recheck. Blood pressure stable on current regimen. 01/19/17 Continues oxygen 2 liters by nasal cannula to maintain saturations. Continue nebulizers and Mucinex LA. Consult placed for Dr. Conklin for further pulmonary recommendations. Sputum culture reveals normal respiratory nikolai. She has continued on Doxycycline Continue with diuresis. Lasix 40 milligrams daily. Weight has trended down approximately 5 kilograms since admission. Continue on prednisone 40 milligrams daily to help with pulmonary inflammation Urine culture did reveal positive for Escherichia coli. Will have to discuss antibiotic coverage further with attending. Also consider starting Oxybutynin for chronic urinary incontinence Continue to monitor blood sugars, overall, these appear to be well controlled. Continue Amaryl, sliding scale NovoLog Lovenox SQ daily for DVT prophylaxis Echocardiogram read pending Will discuss further orders and plan of care with attending, Dr. Larsen 01/20/17 Continue on Bactrim for TX of UTI. Will try Bipap overnight as recommended by Dr Conklin. Encourage ambulation. 01/21/17 Bladder retraining in progress - anticipate discontinuing Torres tomorrow. Dr. Larsen has discussed case with Dr. Oseguera, urology. CT renal ordered. Respiratory status about the same as yesterday. Tolerated BiPAP her first night , but it was difficult to sleep well with the mask. Continue BiPAP HS and Prednisone [address] Conklin evaluated her yesterday - recommends home ventilation via face mask; agrees with prednisone burst and taper; neb treatments, acapella. Electrolytes - improving. Na down to 144, K 4.3. Bicarb decreasing, now at 35. BUN slowly increasing - if this continues may need to change abx (on Bactrim for E. coli UTI). Hyperglycemia, readings ranging from 84 (fasting yesterday) to 236 (postprandial ). Increase SSI to medium corrective regimen. Continue glimepiride. Echo: EF 58%; trace valvular disease with mild PH. 01/22/[address] reviewed with Mrs. Austin. I shared with her my concern that this represents an ovarian carcinoma. She's previously undergone hysterectomy but ovaries were left intact. She is at high surgical risk for pulmonary complications if debulking surgery were to be considered but wishes to discuss this further with Dr. Conklin and I have spoken with him to update him on findings. Additionally I've spoken with Dr. Montilla who will see the patient in consultation and offer recommendations. Management is complicated by the patient's limited mobility and difficulty getting to and from offices. Surgical intervention for nephrolithiasis not an option, continue antibiotics for UTI for 3 weeks and reassess urine after treatment completed. Suspect stones or infected. Tolerated BiPAP fairly well last night, will begin tapering prednisone. Blood sugars remain elevated with steroids, continue corrective insulin. Blood pressures modestly elevated but typically systolic around 150-do not believe additional interventions are needed. Further improvement anticipated with dropping steroids. Weight stable, continue oral Lasix at current dose.
--- NOTE | 2017-01-22 15:19 | Pulmonology Progress Note ---
<EhsanGraciela Pepe - Last Filed: 01/22/17 15:15> Subjective Interval history: sStates her breathing is a little worses today. Notices more SOB today. + cough with some sputum noted. Using bipap at night, 10/5. 2 lpm O2. Exam Vital signs: Temperature 98.4 F 01/22/17 07:00 Pulse Rate 72 01/22/17 07:00 Respiratory Rate 18 01/22/17 14:50 Blood Pressure 151/66 H 01/22/17 07:00 Pulse Oximetry 94 01/22/17 14:50 - Constitutional no acute distress, obese - Routine HEENT Exam Head: Present: normocephalic, atraumatic Eye: Present: EOMI, PERRL - Routine Neck Exam Present: full ROM - Routine Respiratory Exam Present: rhonchi, wheezes - Routine Cardiovascular Exam Present: RRR, no murmur - Routine Abdominal Exam Present: soft, normoactive bowel sounds - Routine Extremities Exam Present: edema, full ROM - Routine Skin Exam Present: intact, dry - Routine Neurological Exam Present: alert, oriented X3, CN II-XII intact - Routine Psychiatric Exam Present: normal affect, normal thought process - Urinary Catheter Management Urethral Cath placed during this visit: yes Urethral indwelling: Yes Reason for continuing: Accurate I&O/Aggressive Diuresis Insertion date: 01/17/17 Insertion time: 13:40 Progress Note-A&P (1) Acute and chronic respiratory failure with hypercapnia Status: Acute Assessment and plan: Pt currently on O2 at 2L per NC, home trilogy vent ordered yesterday, using bipap here f12, 10/5 30%. Will have them use humidifier as she complains about being very dry. Will cont to follow. Current Visit: Yes (2) Morbid obesity with BMI of 50.0-59.9, adult Status: Acute Current Visit: Yes (3) Asthma-COPD overlap syndrome Problem details: With acute exacerbation Status: Acute Assessment and plan: Currently on prednisone 50mg daily and albuterol QID and acapella. Slight rhonchi noted, encouraged use of acapella and ambulation. Current Visit: Yes (4) Rhinovirus Status: Acute Assessment and plan: supportive care Current Visit: Yes (5) Acute CHF (congestive heart failure) Status: Acute Assessment and plan: Diuresis per primary Current Visit: Yes - Time Spent With Patient Total time spent is greater than 50% in coordination of care (as documented) at patient's floor/unit and/or counseling patient: less than 15 minutes Sepsis Assessment - Evaluation Sepsis screening result: No Definite Risk <Eldon Conklin - Last Filed: 01/22/17 18:09> Subjective Interval history: new finding of large pelvic mass with possible intraabdominal metastases. Discussed with Dr Larsen. We are considering options and asking Heme/Onc to evaluate as well. Her breathing is stable. on 2 lpm O2. tolerating NIPPV well without difficulty and still planning to go home with that. Exam Vital signs: Temperature 97.6 F 01/22/17 15:00 Pulse Rate 78 01/22/17 15:00 Respiratory Rate 24 01/22/17 15:00 Blood Pressure 158/69 H 01/22/17 15:00 Pulse Oximetry 91 01/22/17 15:00 - Urinary Catheter Management Urethral Cath placed during this visit: no Progress Note-A&P (1) Acute and chronic respiratory failure with hypercapnia Status: Acute Current Visit: Yes (2) Morbid obesity with BMI of 50.0-59.9, adult Status: Acute Current Visit: Yes (3) Asthma-COPD overlap syndrome Problem details: With acute exacerbation Status: Acute Current Visit: Yes (4) Rhinovirus Status: Acute Current Visit: Yes (5) Pelvic mass in female Status: Acute Assessment and plan: with bladder compression. highly suggestive of malignancy with elevated CA125. diagnostic and therapeutic options being considered Current Visit: Yes - Time Spent With Patient Total time spent is greater than 50% in coordination of care (as documented) at patient's floor/unit and/or counseling patient:
[2017-01-23] MEDS: ENOXAPARIN 30 MG/0.3 ML INJECTION SQ SCH ×2 (05:45→18:39)
[2017-01-23] MEDS: ALBUTEROL 2.5mg/3ml (0.083%) NEB AEROSOL SCH ×4 (07:22→19:15)
[2017-01-23] MEDS ORDERED: NS 100 ML ONE (09:25)
[2017-01-23] MEDS ORDERED: IOHEXOL 300mg/ml 100ml INJECTION ONE (09:25)
[2017-01-23] MEDS ORDERED: SALINE FLUSH 10ml SYRINGE ONE (10:02)
[2017-01-23] MEDS ORDERED: IOHEXOL 300mg/ml 50ml INJECTION ONE (10:18)
--- NOTE | 2017-01-23 10:21 | Consultation ---
ONCOLOGY CONSULTATION DATE OF CONSULTATION 01/22/2017 CHIEF COMPLAINT Shortness of breath. HISTORY OF PRESENT ILLNESS This is a 71-year-old female patient with multiple medical problems including COPD--on oxygen at home for several years. She sees Dr. Conklin for her chronic lung disease. She has been treated with steroid multiple times. She became diabetic due to the steroid. She presented with worsening shortness of breath. Also, she has urine incontinence. A CT scan was done to check for kidney stones. It showed a large pelvic mass measuring 12 x 9 x 7 cm in size in addition to omental caking consistent with ovarian cancer. Her CA 125 was more than 9,000. The patient has history of hysterectomy. Her ovaries are in. PAST MEDICAL HISTORY COPD. Asthma. Dr. Conklin is seeing her. She is on oxygen at home. Hypertension. Steroid-induced diabetes mellitus. Kidney stones. PAST SURGICAL HISTORY Hernia repair. Cholecystectomy. Multiple nasal polypectomy. Hysterectomy. She has the history of cystoscopy with renal stent placement. FAMILY HISTORY Mother with history of breast cancer. History of colon cancer in the family. SOCIAL HISTORY She never smoked. She lives with her in their own home. REVIEW OF SYSTEMS GENERAL: Very weak and tired. She cares for herself. RESPIRATORY: Chronic shortness of breath on oxygen. Worsening breathing symptoms. CARDIOVASCULAR: No chest pain. GI: Abdominal distention. No nausea or vomiting. No constipation or diarrhea. : Urinary incontinence. NUCLEAR EQUIPMENT SALES ENGINEER: No history of stroke. PHYSICAL EXAM GENERAL: Chronically ill. She spends most of time in bed due to shortness of breath. However, she is ambulatory, cares for herself. Performance status echo of 2-3. She is on oxygen. LUNGS: Bilateral crackles and wheezing. CARDIOVASCULAR: Slightly tachycardic. No murmur. ABDOMEN: Distended. She has an epigastric hernia. There are multiple masses in the abdomen, in the epigastric and left flank area. Suprapubic fullness. No definitive ascites; however, the abdomen is distended, mostly likely from the ovarian masses and omental caking. BREAST EXAM: Deferred. LYMPH SYSTEM: No peripheral lymphadenopathy. NUCLEAR EQUIPMENT SALES ENGINEER: No focal neurological deficit. EXTREMITIES: No edema. SKIN: No rash. LAB CBC: White count 7.8, hemoglobin 11.9, platelets 328,000, neutrophils 68,000. Chemistry unremarkable. CA 125 more than 9,000. ASSESSMENT 1. Pelvic masses with omental caking and elevated CA 125 consistent with ovarian cancer. The patient is status hysterectomy without ovariectomy in the past. 2. Multiple medical problems and comorbidities including COPD/chronic lung disease--on oxygen at home, long-term steroid use complicated by hyperglycemia/ diabetes, borderline performance status mainly due to chronic lung disease. RECOMMENDATION AND PLAN I had a lengthy discussion with the patient going over the CAT scan findings which is consistent with advanced ovarian cancer. We discussed diagnostic procedures and treatment options including debulking surgery which is ideal treatment. However, the patient strongly feels she is not a surgical candidate due to her lung disease. We discussed the option of systemic chemotherapy as a palliative treatment. Then we discussed supportive care and palliative care. The patient would like to fight the cancer and try the chemotherapy. We discussed risks and benefits of the chemotherapy. I answered all her questions to her satisfaction. We agreed for the following plan of care: 1. Ultrasound-guided biopsy of the pelvic mass. 2. Baseline CT scan of the chest, abdomen and pelvis with contrast as a baseline. 3. Port-A-Cath or PICC line for chemotherapy. 4. Will monitor blood counts closely. Thank you for allowing me to participate in the management and care of your patient. SOCORRO
[2017-01-23] MEDS: FUROSEMIDE 40 MG TABLET PO SCH (10:41)
[2017-01-23] MEDS: PredniSONE 10 MG TABLET PO SCH (10:41)
[2017-01-23] MEDS: GUAIFENESIN LA 600 MG TABLET PO SCH ×2 (10:41→20:38)
[2017-01-23] MEDS: SULFAMETHOXAZOLE/TMP 800 MG/160 MG DS TABLET PO SCH ×2 (10:42→20:38)
[2017-01-23] MEDS: LOSARTAN 50 MG TABLET PO SCH (10:42)
[2017-01-23] MEDS: CARVEDILOL 6.25 MG TABLET PO SCH ×2 (10:42→18:38)
[2017-01-23] MEDS: GLIMEPIRIDE 2 MG TABLET PO SCH (10:42)
[2017-01-23] MEDS: INSULIN ASPART 100unit/ml INJECTION SQ PRN ×2 (14:23→20:41)
--- NOTE | 2017-01-23 20:15 | Progress Note ---
Subjective: Mrs. Austin reported no change in her respiratory status. At rest she feels relatively comfortable although continues to cough and wheeze but any activity causes dyspnea. Bowels are fine and she is having bowel movements without diarrhea. She denied nausea, fevers, or pain. Her appetite is good and she is sleeping well. She reported that she has discussed findings of this CT abdomen/ pelvis and concern of pelvic malignancy with her and daughters. Objective Vital signs: Temperature 97.9 F 01/23/17 15:15 Pulse Rate 81 01/23/17 15:15 Respiratory Rate 20 01/23/17 19:15 Blood Pressure 136/67 01/23/17 15:15 Pulse Oximetry 93 01/23/17 19:15 I/O 1040/3000 weight down 2 kg from yesterday, 8-1/2 kg from admission EXAM General-NAD, alert HEENT-oropharynx clear Lungs-diffuse expiratory wheezing anterior lung schmitt Cardiac-regular rhythm, S1-S2 Abd-soft, obese, nontender Ext-trace edema Psych-pleasant - Height/Weight/BMI: Height 1.55 m Weight 117.2 kg Body Mass Index 51.9 Results - Labs CBC & Chem 7: 01/22/17 05:13 01/23/17 04:16 Microbiology Results: Microbiology 01/17/17 18:10 Sputum, Expectorated Gram Stain - Final 01/17/17 18:10 Sputum, Expectorated Sputum Culture - Final Normal Respiratory Nikolai - ABG Interpretation ABG results: 01/18/17 07:05 ABG pH 7.423 ABG pCO2 56 H ABG pO2 82 ABG HCO3 36 H ABG Total CO2 38 H ABG O2 Saturation 96.0 ABG Base Excess 10.0 H - Imaging and Cardiology CT scan - chest Status: image reviewed by me CT scan - abdomen Status: image reviewed by me (CT chest/abdomen/pelvis demonstrate small right pleural effusion, previously identified renal stones and hepatic cysts, probable renal cysts, and complex mass in the pelvis with peritoneal masses consistent with carcinomatosis) Assessment and Plan (1) Acute and chronic respiratory failure Problem details: Hypoxic/chronic hypercarbia Current visit: Yes Status: Acute (2) Asthma-COPD overlap syndrome Problem details: With acute exacerbation Current visit: Yes Status: Acute (3) Acute CHF (congestive heart failure) Current visit: Yes Status: Acute DVT Prophylaxis: Lovenox Resuscitation Status: Full Code Assessment and Plan: ASSESSMENT Acute Congestive Heart Failure; Fluid overload; NYHA CHF Class IV COPD exacerbation Acute on Chronic Respiratory Failure-hypoxic/hypercarbic Pelvic mass, probable ovarian cancer E. coli UTI DM2, A1c 6.5 HTN Morbid obesity Bilateral nephrolithiasis, right staghorn calculus Urinary urgency with incontinence Chronic loose stools Rhinovirus infection/URI-POA PLAN Mrs. Austin updated that no additional findings on CT with contrast. She is planning to proceed with chemotherapy and surgery if surgery can be performed safely. Anticipate percutaneous biopsy of the pelvic mass on Wednesday. Respiratory status stable, prednisone titrated to 50 mg daily this morning. Was able to wear BiPAP all night last night-continue. Volume status stable. I would like to try discontinuing Torres catheter prior to discharge the patient is opposed to removal due to prior incontinence. Have discussed risks of infection with continued catheter. Asked patient to discuss risks with her daughter who is a nurse. Persistent postprandial hyperglycemia, primarily after lunch and supper-add scheduled insulin with those meals. Blood pressures normal to slightly elevated-continue to monitor. Sepsis Assessment - Evaluation Sepsis screening result: No Definite Risk Hospital Course Summary Disclaimer: The visit summary below is not to be considered part of the above Progress Note. Hospital Course: 01/17/17 Admit to inpatient. *CV: Continue IV diuresis. Assess 2D Echo for EF. Add beta-kelly, JOCELYN/ARB as appropriate. Continue O2. CTA obtained- a bit limited due to artifact. Start prophylaxis lovenox. *Pulm: Continue O2. Nebs. Diurese. Add doxycycline for URI. No acute evidence of pneumonia. *DM2- Continue home medications as appropriate. Monitor accuchecks. *Loose stool- Hold home code liver oil May need outpatient endoscopy when more stable. *Urinary frequency, Urgency Urine cx pending. Bilateral hydronephrosis. May need to obtain CT abdomen/pelvis, as similar sx with prior kidney stones. Torres for now due to significant respiratory distress. 01/18/17 Overnight oximetry obtained on 2 L supplemental oxygen demonstrating minor desaturations. About 7 minutes less than 90%. Diuresing well, continue Lasix. Rhinovirus positive and continues to wheeze extensively with upper airway sounds and patient reports of mucous plugging. Mucinex LA added at 1200 mg twice a day, continue breathing treatments. Doxycycline switched to oral administration. Anticipate alternate antibiotics when cultures available-some limitations due to allergies. Continue oral steroids, prednisone dose dropped [address] Conklin consulted. Echocardiogram in a.m. Last A1c about one year ago-recheck. Blood pressure stable on current regimen. 01/19/17 Continues oxygen 2 liters by nasal cannula to maintain saturations. Continue nebulizers and Mucinex LA. Consult placed for Dr. Cnoklin for further pulmonary recommendations. Sputum culture reveals normal respiratory nikolai. She has continued on Doxycycline Continue with diuresis. Lasix 40 milligrams daily. Weight has trended down approximately 5 kilograms since admission. Continue on prednisone 40 milligrams daily to help with pulmonary inflammation Urine culture did reveal positive for Escherichia coli. Will have to discuss antibiotic coverage further with attending. Also consider starting Oxybutynin for chronic urinary incontinence Continue to monitor blood sugars, overall, these appear to be well controlled. Continue Amaryl, sliding scale NovoLog Lovenox SQ daily for DVT prophylaxis Echocardiogram read pending Will discuss further orders and plan of care with attending, Dr. Larsen 01/20/17 Continue on Bactrim for TX of UTI. Will try Bipap overnight as recommended by Dr Conklin. Encourage ambulation. 01/21/17 Bladder retraining in progress - anticipate discontinuing Torres tomorrow. Dr. Larsen has discussed case with Dr. Oseguera, urology. CT renal ordered. Respiratory status about the same as yesterday. Tolerated BiPAP her first night , but it was difficult to sleep well with the mask. Continue BiPAP HS and Prednisone [address] Conklin evaluated her yesterday - recommends home ventilation via face mask; agrees with prednisone burst and taper; neb treatments, acapella. Electrolytes - improving. Na down to 144, K 4.3. Bicarb decreasing, now at 35. BUN slowly increasing - if this continues may need to change abx (on Bactrim for E. coli UTI). Hyperglycemia, readings ranging from 84 (fasting yesterday) to 236 (postprandial ). Increase SSI to medium corrective regimen. Continue glimepiride. Echo: EF 58%; trace valvular disease with mild PH. 01/22/[address] reviewed with Mrs. Howardshasta. I shared with her my concern that this represents an ovarian carcinoma. She's previously undergone hysterectomy but ovaries were left intact. She is at high surgical risk for pulmonary complications if debulking surgery were to be considered but wishes to discuss this further with Dr. Conklin and I have spoken with him to update him on findings. Additionally I've spoken with Dr. Montilla who will see the patient in consultation and offer recommendations. Management is complicated by the patient's limited mobility and difficulty getting to and from offices. Surgical intervention for nephrolithiasis not an option, continue antibiotics for UTI for 3 weeks and reassess urine after treatment completed. Suspect stones or infected. Tolerated BiPAP fairly well last night, will begin tapering prednisone. Blood sugars remain elevated with steroids, continue corrective insulin. Blood pressures modestly elevated but typically systolic around 150-do not believe additional interventions are needed. Further improvement anticipated with dropping steroids. Weight stable, continue oral Lasix at current dose. 01/23/17 Mrs. Austin updated that no additional findings on CT with contrast. She is planning to proceed with chemotherapy and surgery if surgery can be performed safely. Anticipate percutaneous biopsy of the pelvic mass on Wednesday. Respiratory status stable, prednisone titrated to 50 mg daily this morning. Was able to wear BiPAP all night last night-continue. Volume status stable. I would like to try discontinuing Torres catheter prior to discharge the patient is opposed to removal due to prior incontinence. Have discussed risks of infection with continued catheter. Asked patient to discuss risks with her daughter who is a nurse. Persistent postprandial hyperglycemia, primarily after lunch and supper-add scheduled insulin with those meals. Blood pressures normal to slightly elevated-continue to monitor.
[2017-01-23] MEDS: SALINE FLUSH 10ml SYRINGE IVF PRN (20:41)
[2017-01-23] MEDS ORDERED: FALL RISK - PHARMACY CONSULT MC PRN (21:43)
[2017-01-24] MEDS: ENOXAPARIN 30 MG/0.3 ML INJECTION SQ SCH ×2 (06:04→17:52)
[2017-01-24] MEDS: SALINE FLUSH 10ml SYRINGE IVF PRN ×2 (06:04→20:54)
[2017-01-24] MEDS: ALBUTEROL 2.5mg/3ml (0.083%) NEB AEROSOL SCH ×4 (08:00→19:14)
[2017-01-24] MEDS: PredniSONE 10 MG TABLET PO SCH (09:29)
[2017-01-24] MEDS: CARVEDILOL 6.25 MG TABLET PO SCH ×2 (09:29→17:50)
[2017-01-24] MEDS: SULFAMETHOXAZOLE/TMP 800 MG/160 MG DS TABLET PO SCH ×2 (09:29→20:50)
[2017-01-24] MEDS: GUAIFENESIN LA 600 MG TABLET PO SCH ×2 (09:29→20:50)
[2017-01-24] MEDS: GLIMEPIRIDE 2 MG TABLET PO SCH (09:30)
[2017-01-24] MEDS: LOSARTAN 50 MG TABLET PO SCH (09:30)
[2017-01-24] MEDS: FUROSEMIDE 40 MG TABLET PO SCH (09:36)
--- NOTE | 2017-01-24 10:56 | CT Scan Report ---
Indication: ovarian mass PROCEDURE: CT chest abd/pelvis w con: Encounter: Subsequent Comparison: Renal CT dated January 21, 2017 Technique: Axial CT images were performed through the chest, abdomen and pelvis after the administration of intravenous contrast. Coronal and sagittal two-dimensional reformats. Automated Exposure Control and Iterative Reconstruction dose reducing techniques were utilized. Contrast: Omnipaque 300 96 mL Findings: Chest: Small right pleural effusion with lower lobe atelectasis. No pneumothorax. The left lung is grossly clear. No worrisome pulmonary nodules or masses. Exam is limited due to patient body habitus and attenuation artifact. No axillary or mediastinal adenopathy. Heart size is normal. No pericardial effusion. Great vessels are unremarkable. Separate origin of the left vertebral from the aortic arch, a normal variant. Small node in the right cardiophrenic angle on image #32 measuring 1 cm in short axis. Abdomen/pelvis: Small hepatic probable cysts. No enhancing liver mass or bile duct dilatation. Borderline fatty infiltration. The gallbladder is unremarkable. The spleen, pancreas and adrenal glands are within normal limits. Probable Andrea fundoplication. Large bilateral renal stones described on the prior renal CT report. Retroaortic left renal vein noted incidentally. Large amount of omental thickening again seen in the anterior abdomen as noted on the prior study. Heterogeneously enhancing cystic and solid mass associated with and probably adherent to the uterus and ovaries. This is difficult to differentiate from the normal uterine and ovarian tissue. The overall size is somewhat difficult to precisely measure, but is between 10 and 17 cm in maximal diameter. Small amount of free pelvic fluid. Bladder is completely decompressed with a Torres catheter. There is significant narrowing in the sigmoid colon in the region of the mass which could be due to decompressed state or partial obstruction from the mass or peritoneal disease. The remainder of the colon is unremarkable. Fat-containing ventral hernia with some nodularity that could represent omental implants. No small bowel obstruction. Bone windows show degenerative change and scoliosis in the thoracolumbar spine without obvious lytic or blastic bone lesion. Impression: 1. Large pelvic mass that could be from the ovary or uterus with evidence of extensive omental and peritoneal metastatic spread. Gynecologic oncologic consultation is recommended. 2. Right pleural effusion without other associated findings to suggest metastatic disease in the chest. There is a preliminary report by [facility]. .
[2017-01-24] MEDS: INSULIN ASPART 100unit/ml INJECTION SQ PRN ×2 (11:51→20:50)
[2017-01-24] MEDS: INSULIN ASPART 100unit/ml INJECTION SQ SCH ×2 (12:31→17:50)
--- NOTE | 2017-01-24 13:27 | Progress Note ---
Subjective: Mrs. Austin reports that her breathing is a little worse than on her usual good days. She continues to wheeze continually and has intermittent cough. She denied nausea or vomiting, is having regular bowel movements. She denies pain. She tolerates minimal activity. She is having bladder spasms and leaking around the Torres with bladder training. Objective Vital signs: Temperature 96.7 F L 01/24/17 07:20 Pulse Rate 75 01/24/17 07:20 Respiratory Rate 18 01/24/17 11:17 Blood Pressure 169/97 H 01/24/17 07:20 Pulse Oximetry 94 01/24/17 11:17 EXAM General-NAD, alert Lungs-respirations nonlabored, decreased airflow, diffuse expiratory wheezing Cardiac-regular rhythm, S1-S2 Abd-soft, obese, nontender, bowel sounds present Ext-trace edema Neuro-moving upper extremities spontaneously Psych-calm, cooperative - Height/Weight/BMI: Height 1.55 m Weight 117.2 kg Body Mass Index 51.9 Results - Labs CBC & Chem 7: 01/22/17 05:13 01/24/17 05:08 Labs: Magnesium 2.4, phosphorus 4.8 Microbiology Results: Assessment and Plan (1) Acute and chronic respiratory failure Problem details: Hypoxic/chronic hypercarbia Current visit: Yes Status: Acute (2) Asthma-COPD overlap syndrome Problem details: With acute exacerbation Current visit: Yes Status: Acute (3) Acute CHF (congestive heart failure) Current visit: Yes Status: Acute (4) Pelvic mass in female Current visit: Yes Status: Acute DVT Prophylaxis: Lovenox Resuscitation Status: Full Code Assessment and Plan: ASSESSMENT Acute Congestive Heart Failure; Fluid overload; NYHA CHF Class IV COPD exacerbation Acute on Chronic Respiratory Failure-hypoxic/hypercarbic Pelvic mass, probable ovarian cancer E. coli UTI DM2, A1c 6.5 HTN Morbid obesity Bilateral nephrolithiasis, right staghorn calculus Urinary urgency with incontinence Chronic loose stools Rhinovirus infection/URI-POA PLAN CTs reviewed with the patient and her . He is concerned that the patient' s hernia reflects a mass that would require biopsy but imaging clearly show hernia. Ultrasound guided biopsy of pelvic mass ordered for tomorrow, have requested the patient wear BiPAP during procedure. Platelet count and INR to be reassessed in the morning prior to procedure. She is planning to proceed with chemotherapy and surgery if surgery can be performed safely. Respiratory status stable, prednisone titrated to 50 mg daily 01/23. Tolerating BiPAP well. Plan mask to event at discharge; paperwork completed by Dr. Conklin and on the chart. Negative fluid balance the last 3 days, creatinine up slightly-discontinue Lasix. Patient remains opposed to discontinuing Torres catheter and having symptoms with bladder training. Discontinue bladder training for now and again asked the patient discuss risks of long-term Foleys with her daughter and that she discuss Torres catheter during chemotherapy with Dr. Montilla. Insulin with lunch and dinner initiated today for postprandial hyperglycemia, remains on low-dose Amaryl as well for steroid-induced hyperglycemia. Blood pressures normal to slightly elevated-continue to monitor. Sepsis Assessment - Evaluation Sepsis screening result: No Definite Risk Hospital Course Summary Disclaimer: The visit summary below is not to be considered part of the above Progress Note. Hospital Course: 01/17/17 Admit to inpatient. *CV: Continue IV diuresis. Assess 2D Echo for EF. Add beta-kelly, JOCELYN/ARB as appropriate. Continue O2. CTA obtained- a bit limited due to artifact. Start prophylaxis lovenox. *Pulm: Continue O2. Nebs. Diurese. Add doxycycline for URI. No acute evidence of pneumonia. *DM2- Continue home medications as appropriate. Monitor accuchecks. *Loose stool- Hold home code liver oil May need outpatient endoscopy when more stable. *Urinary frequency, Urgency Urine cx pending. Bilateral hydronephrosis. May need to obtain CT abdomen/pelvis, as similar sx with prior kidney stones. Torres for now due to significant respiratory distress. 01/18/17 Overnight oximetry obtained on 2 L supplemental oxygen demonstrating minor desaturations. About 7 minutes less than 90%. Diuresing well, continue Lasix. Rhinovirus positive and continues to wheeze extensively with upper airway sounds and patient reports of mucous plugging. Mucinex LA added at 1200 mg twice a day, continue breathing treatments. Doxycycline switched to oral administration. Anticipate alternate antibiotics when cultures available-some limitations due to allergies. Continue oral steroids, prednisone dose dropped [address] Conklin consulted. Echocardiogram in a.m. Last A1c about one year ago-recheck. Blood pressure stable on current regimen. 01/19/17 Continues oxygen 2 liters by nasal cannula to maintain saturations. Continue nebulizers and Mucinex LA. Consult placed for Dr. Conklin for further pulmonary recommendations. Sputum culture reveals normal respiratory nikolai. She has continued on Doxycycline Continue with diuresis. Lasix 40 milligrams daily. Weight has trended down approximately 5 kilograms since admission. Continue on prednisone 40 milligrams daily to help with pulmonary inflammation Urine culture did reveal positive for Escherichia coli. Will have to discuss antibiotic coverage further with attending. Also consider starting Oxybutynin for chronic urinary incontinence Continue to monitor blood sugars, overall, these appear to be well controlled. Continue Amaryl, sliding scale NovoLog Lovenox SQ daily for DVT prophylaxis Echocardiogram read pending Will discuss further orders and plan of care with attending, Dr. Larsen 01/20/17 Continue on Bactrim for TX of UTI. Will try Bipap overnight as recommended by Dr Conklin. Encourage ambulation. 01/21/17 Bladder retraining in progress - anticipate discontinuing Torres tomorrow. Dr. Larsen has discussed case with Dr. Oseguera, urology. CT renal ordered. Respiratory status about the same as yesterday. Tolerated BiPAP her first night , but it was difficult to sleep well with the mask. Continue BiPAP HS and Prednisone [address] Conklin evaluated her yesterday - recommends home ventilation via face mask; agrees with prednisone burst and taper; neb treatments, acapella. Electrolytes - improving. Na down to 144, K 4.3. Bicarb decreasing, now at 35. BUN slowly increasing - if this continues may need to change abx (on Bactrim for E. coli UTI). Hyperglycemia, readings ranging from 84 (fasting yesterday) to 236 (postprandial ). Increase SSI to medium corrective regimen. Continue glimepiride. Echo: EF 58%; trace valvular disease with mild PH. 01/22/[address] reviewed with Mrs. Austin. I shared with her my concern that this represents an ovarian carcinoma. She's previously undergone hysterectomy but ovaries were left intact. She is at high surgical risk for pulmonary complications if debulking surgery were to be considered but wishes to discuss this further with Dr. Conklin and I have spoken with him to update him on findings. Additionally I've spoken with Dr. Montilla who will see the patient in consultation and offer recommendations. Management is complicated by the patient's limited mobility and difficulty getting to and from offices. Surgical intervention for nephrolithiasis not an option, continue antibiotics for UTI for 3 weeks and reassess urine after treatment completed. Suspect stones or infected. Tolerated BiPAP fairly well last night, will begin tapering prednisone. Blood sugars remain elevated with steroids, continue corrective insulin. Blood pressures modestly elevated but typically systolic around 150-do not believe additional interventions are needed. Further improvement anticipated with dropping steroids. Weight stable, continue oral Lasix at current dose. 01/23/17 Mrs. Austin updated that no additional findings on CT with contrast. She is planning to proceed with chemotherapy and surgery if surgery can be performed safely. Anticipate percutaneous biopsy of the pelvic mass on Wednesday. Respiratory status stable, prednisone titrated to 50 mg daily this morning. Was able to wear BiPAP all night last night-continue. Volume status stable. I would like to try discontinuing Torres catheter prior to discharge the patient is opposed to removal due to prior incontinence. Have discussed risks of infection with continued catheter. Asked patient to discuss risks with her daughter who is a nurse. Persistent postprandial hyperglycemia, primarily after lunch and supper-add scheduled insulin with those meals. Blood pressures normal to slightly elevated-continue to monitor. 01/24/17 CTs reviewed with the patient and her . Has been concerned that the patient's hernia reflected a mass that would require biopsy but imaging clearly show hernia. Ultrasound guided biopsy of pelvic mass ordered for tomorrow, have requested the patient wear BiPAP during procedure. Platelet count and INR to be reassessed in the morning prior to procedure. She is planning to proceed with chemotherapy and surgery if surgery can be performed safely. Respiratory status stable, prednisone titrated to 50 mg daily 01/23. Tolerating BiPAP well. Plan mask to event at discharge; paperwork completed by Dr. Conklin and on the chart. Negative fluid balance the last 3 days, creatinine up slightly-discontinue Lasix. Patient remains opposed to discontinuing Torres catheter and having symptoms with bladder training. Discontinue bladder training for now and again asked the patient discuss risks of long-term Foleys with her daughter and that she discuss Torres catheter during chemotherapy with Dr. Montilla. Insulin with lunch and dinner initiated today for postprandial hyperglycemia, remains on low-dose Amaryl as well for steroid-induced hyperglycemia. Blood pressures normal to slightly elevated-continue to monitor.
[2017-01-25] MEDS: ENOXAPARIN 30 MG/0.3 ML INJECTION SQ SCH (05:28)
[2017-01-25] MEDS: ALBUTEROL 2.5mg/3ml (0.083%) NEB AEROSOL SCH ×4 (07:09→19:31)
[2017-01-25] MEDS: CARVEDILOL 6.25 MG TABLET PO SCH ×2 (09:29→17:46)
[2017-01-25] MEDS: GLIMEPIRIDE 2 MG TABLET PO SCH (09:29)
[2017-01-25] MEDS: PredniSONE 10 MG TABLET PO SCH (09:30)
[2017-01-25] MEDS: SULFAMETHOXAZOLE/TMP 800 MG/160 MG DS TABLET PO SCH ×2 (09:30→21:21)
[2017-01-25] MEDS: GUAIFENESIN LA 600 MG TABLET PO SCH ×2 (09:30→21:20)
[2017-01-25] MEDS: LOSARTAN 50 MG TABLET PO SCH (09:30)
[2017-01-25] MEDS: INSULIN ASPART 100unit/ml INJECTION SQ PRN ×3 (10:41→21:19)
[2017-01-25] MEDS ORDERED: LORazepam 0.5 MG TABLET PO PRN (12:24)
--- NOTE | 2017-01-25 12:29 | Progress Note ---
Subjective: F/U: Acute CHF, COPD with acute exacerbation, Acute on chronic respiratory failure. Doing okay today. Tolerating BIPAP-still getting used to it, but feels it is helpful. Breathing essentially stable. No chest pain. Eating well. No mouth pain or pain with swallowing. Bowels stable. No ab pain. Still wanting Torres. Objective Vital signs: Temperature 96.8 F 01/25/17 07:42 Pulse Rate 72 01/25/17 07:42 Respiratory Rate 18 01/25/17 11:21 Blood Pressure 124/55 01/25/17 07:42 Pulse Oximetry 93 01/25/17 11:21 Height/Weight/BMI: Height 1.55 m Weight 117.8 kg Body Mass Index 51.9 - Constitutional Present: well nourished, well developed, morbidly obese, cooperative. Absent: agitated, somnolent - Routine HEENT Exam Head: Present: normocephalic, atraumatic Eye: Present: EOMI, PERRL ENT: Present: mucous membranes moist (No thrush ) - Routine Respiratory Exam Present: decreased breath sounds, prolonged expiratory phase, wheezes ( Bilateral end expiratory ), distant breath sounds, diminished air movement. Absent: respiratory distress - Routine Cardiovascular Exam Present: RRR, no murmur - Routine Abdominal Exam Present: soft, normoactive bowel sounds, non distended, non tender - Routine Extremities Exam Present: edema (Trace LE edema ), pulses intact. Absent: cyanosis, clubbing - Routine Musculoskeletal Exam Musculoskeletal: Present: no clubbing or cyanosis, normal strength - Routine Skin Exam Present: intact, dry, warm - Routine Neurological Exam Present: alert, oriented X3, CN II-XII intact, moving all extremities, vision grossly intact, hearing grossly intact. Absent: motor deficit - Routine Psychiatric Exam Present: normal affect, cooperative. Absent: anxious, agitated Results - Labs CBC & Chem 7: 01/25/17 05:26 01/25/17 05:26 Microbiology Results: Microbiology 01/17/17 18:10 Sputum, Expectorated Gram Stain - Final 01/17/17 18:10 Sputum, Expectorated Sputum Culture - Final Normal Respiratory Nikolai - ABG Interpretation ABG results: 01/18/17 07:05 ABG pH 7.423 ABG pCO2 56 H ABG pO2 82 ABG HCO3 36 H ABG Total CO2 38 H ABG O2 Saturation 96.0 ABG Base Excess 10.0 H Assessment and Plan (1) Acute CHF (congestive heart failure) Current visit: Yes Status: Acute (2) Acute and chronic respiratory failure Problem details: Hypoxic/chronic hypercarbia Current visit: Yes Status: Acute (3) Asthma-COPD overlap syndrome Problem details: With acute exacerbation Current visit: Yes Status: Acute (4) Pelvic mass in female Current visit: Yes Status: Acute DVT Prophylaxis: Lovenox Resuscitation Status: Full Code Assessment and Plan: ASSESSMENT Acute Congestive Heart Failure - diastolic; Fluid overload; NYHA CHF Class IV COPD exacerbation Acute on Chronic Respiratory Failure-hypoxic/hypercarbic Pelvic mass, probable ovarian cancer E. coli UTI DM2, A1c 6.5 HTN Morbid obesity -BMI 49.1 Bilateral nephrolithiasis, right staghorn calculus Urinary urgency with incontinence Chronic loose stools Rhinovirus infection/URI-POA PLAN Not able to due Pelvic mass Bx today as had Lovenox this morning. Will hold Lovenox and plan for tomorrow. Discussed respiratory status with patient. Largely the same. Does get anxious with activities due to air hunger. Will give trial of lorazepam 0.5mg orally q4 hours as needed. Discussed side effects with patient. Watch for sedation. Obtain wheelchair for patient to help with mobility to appointments - she feels this would be very beneficial. Potentially decrease Prednisone to 40mg tomorrow. Monitor sugars - overall glycemic control stable. Check CXR to reassess status post diuresis. Continue with Bactrim DS BID due to E coli UTI - will need 3 week course due to stone. Recheck lab in am. Continue with supportive care. Case discussed with CM. Time spent with patient care 35 minutes. - Time spent with patient greater than 35 minutes Sepsis Assessment - Evaluation Sepsis screening result: No Definite Risk Hospital Course Summary Disclaimer: The visit summary below is not to be considered part of the above Progress Note. Hospital Course: 01/17/17 Admit to inpatient. *CV: Continue IV diuresis. Assess 2D Echo for EF. Add beta-kelly, JOCELYN/ARB as appropriate. Continue O2. CTA obtained- a bit limited due to artifact. Start prophylaxis lovenox. *Pulm: Continue O2. Nebs. Diurese. Add doxycycline for URI. No acute evidence of pneumonia. *DM2- Continue home medications as appropriate. Monitor accuchecks. *Loose stool- Hold home code liver oil May need outpatient endoscopy when more stable. *Urinary frequency, Urgency Urine cx pending. Bilateral hydronephrosis. May need to obtain CT abdomen/pelvis, as similar sx with prior kidney stones. Torres for now due to significant respiratory distress. 01/18/17 Overnight oximetry obtained on 2 L supplemental oxygen demonstrating minor desaturations. About 7 minutes less than 90%. Diuresing well, continue Lasix. Rhinovirus positive and continues to wheeze extensively with upper airway sounds and patient reports of mucous plugging. Mucinex LA added at 1200 mg twice a day, continue breathing treatments. Doxycycline switched to oral administration. Anticipate alternate antibiotics when cultures available-some limitations due to allergies. Continue oral steroids, prednisone dose dropped [address] Conklin consulted. Echocardiogram in a.m. Last A1c about one year ago-recheck. Blood pressure stable on current regimen. 01/19/17 Continues oxygen 2 liters by nasal cannula to maintain saturations. Continue nebulizers and Mucinex LA. Consult placed for Dr. Conklin for further pulmonary recommendations. Sputum culture reveals normal respiratory nikolai. She has continued on Doxycycline Continue with diuresis. Lasix 40 milligrams daily. Weight has trended down approximately 5 kilograms since admission. Continue on prednisone 40 milligrams daily to help with pulmonary inflammation Urine culture did reveal positive for Escherichia coli. Will have to discuss antibiotic coverage further with attending. Also consider starting Oxybutynin for chronic urinary incontinence Continue to monitor blood sugars, overall, these appear to be well controlled. Continue Amaryl, sliding scale NovoLog Lovenox SQ daily for DVT prophylaxis Echocardiogram read pending Will discuss further orders and plan of care with attending, Dr. Larsen 01/20/17 Continue on Bactrim for TX of UTI. Will try Bipap overnight as recommended by Dr Conklin. Encourage ambulation. 01/21/17 Bladder retraining in progress - anticipate discontinuing Torres tomorrow. Dr. Larsen has discussed case with Dr. Oseguera, urology. CT renal ordered. Respiratory status about the same as yesterday. Tolerated BiPAP her first night , but it was difficult to sleep well with the mask. Continue BiPAP HS and Prednisone [address] Conklin evaluated her yesterday - recommends home ventilation via face mask; agrees with prednisone burst and taper; neb treatments, acapella. Electrolytes - improving. Na down to 144, K 4.3. Bicarb decreasing, now at 35. BUN slowly increasing - if this continues may need to change abx (on Bactrim for E. coli UTI). Hyperglycemia, readings ranging from 84 (fasting yesterday) to 236 (postprandial ). Increase SSI to medium corrective regimen. Continue glimepiride. Echo: EF 58%; trace valvular disease with mild PH. 01/22/[address] reviewed with Mrs. Austin. I shared with her my concern that this represents an ovarian carcinoma. She's previously undergone hysterectomy but ovaries were left intact. She is at high surgical risk for pulmonary complications if debulking surgery were to be considered but wishes to discuss this further with Dr. Conklin and I have spoken with him to update him on findings. Additionally I've spoken with Dr. Montilla who will see the patient in consultation and offer recommendations. Management is complicated by the patient's limited mobility and difficulty getting to and from offices. Surgical intervention for nephrolithiasis not an option, continue antibiotics for UTI for 3 weeks and reassess urine after treatment completed. Suspect stones or infected. Tolerated BiPAP fairly well last night, will begin tapering prednisone. Blood sugars remain elevated with steroids, continue corrective insulin. Blood pressures modestly elevated but typically systolic around 150-do not believe additional interventions are needed. Further improvement anticipated with dropping steroids. Weight stable, continue oral Lasix at current dose. 01/23/17 Mrs. Austin updated that no additional findings on CT with contrast. She is planning to proceed with chemotherapy and surgery if surgery can be performed safely. Anticipate percutaneous biopsy of the pelvic mass on Wednesday. Respiratory status stable, prednisone titrated to 50 mg daily this morning. Was able to wear BiPAP all night last night-continue. Volume status stable. I would like to try discontinuing Torres catheter prior to discharge the patient is opposed to removal due to prior incontinence. Have discussed risks of infection with continued catheter. Asked patient to discuss risks with her daughter who is a nurse. Persistent postprandial hyperglycemia, primarily after lunch and supper-add scheduled insulin with those meals. Blood pressures normal to slightly elevated-continue to monitor. 01/24/17 CTs reviewed with the patient and her . Has been concerned that the patient's hernia reflected a mass that would require biopsy but imaging clearly show hernia. Ultrasound guided biopsy of pelvic mass ordered for tomorrow, have requested the patient wear BiPAP during procedure. Platelet count and INR to be reassessed in the morning prior to procedure. She is planning to proceed with chemotherapy and surgery if surgery can be performed safely. Respiratory status stable, prednisone titrated to 50 mg daily 01/23. Tolerating BiPAP well. Plan mask to event at discharge; paperwork completed by Dr. Conklin and on the chart. Negative fluid balance the last 3 days, creatinine up slightly-discontinue Lasix. Patient remains opposed to discontinuing Torres catheter and having symptoms with bladder training. Discontinue bladder training for now and again asked the patient discuss risks of long-term Foleys with her daughter and that she discuss Torres catheter during chemotherapy with Dr. Montilla. Insulin with lunch and dinner initiated today for postprandial hyperglycemia, remains on low-dose Amaryl as well for steroid-induced hyperglycemia. Blood pressures normal to slightly elevated-continue to monitor. 01/25/17 Not able to due Pelvic mass Bx today as had Lovenox this morning. Will hold Lovenox and plan for tomorrow. Discussed respiratory status with patient. Largely the same. Does get anxious with activities due to air hunger. Will give trial of lorazepam 0.5mg orally q4 hours as needed. Discussed side effects with patient. Watch for sedation. Obtain wheelchair for patient to help with mobility to appointments - she feels this would be very beneficial. Potentially decrease Prednisone to 40mg tomorrow. Monitor sugars - overall glycemic control stable. Check CXR to reassess status post diuresis. Continue with Bactrim DS BID due to E coli UTI - will need 3 week course due to stone. Recheck lab in am. Continue with supportive care.
[2017-01-25] MEDS: INSULIN ASPART 100unit/ml INJECTION SQ SCH ×2 (12:48→17:46)
--- NOTE | 2017-01-25 14:33 | XRay Report ---
LOCATION OF DICTATION: [facility] EXAM: XR chest 2V HISTORY: F/U COMPARISON: Compared to the CT chest dated two days earlier, January 23, 2017. FINDINGS: Limited depth of inspiration. Heart size is upper limits normal. Blunting of the right costophrenic angle suggestive of a small residual pleural effusion with subjacent atelectasis. There are no developing consolidating opacities or evidence for pneumothorax. There is [id number] S-type scoliosis of the thoracolumbar spine suggested. IMPRESSION: 1. Limited depth of inspiration with small residual right pleural effusion suggested. The left lung appears clear. 2. Heart size is upper limits normal. 3. S-type scoliosis suggested. .
[2017-01-25] MEDS: SALINE FLUSH 10ml SYRINGE IVF PRN (21:21)
[2017-01-26] MEDS: ALBUTEROL 2.5mg/3ml (0.083%) NEB AEROSOL SCH ×4 (07:01→19:11)
--- NOTE | 2017-01-26 09:18 | Pulmonology Progress Note ---
Subjective Interval history: large pelvic mass with possible intraabdominal metastases, elevated CA 125. Going for biopsy today. Her breathing is stable. on 2 lpm O2. tolerating NIPPV at night. Not using much during the day. We are planning do d/c home with home vent to mask coughing with sputum. No fever. Reports mild pleuritic chest pain left of sternum with deep breathing Exam Vital signs: Temperature 96.8 F 01/26/17 07:33 Pulse Rate 74 01/26/17 07:33 Respiratory Rate 18 01/26/17 07:33 Blood Pressure 101/71 01/26/17 07:33 Pulse Oximetry 94 01/26/17 07:33 - Constitutional no acute distress, obese - Routine HEENT Exam Head: Present: normocephalic, atraumatic - Routine Neck Exam Present: supple, full ROM - Routine Respiratory Exam Present: wheezes - Routine Cardiovascular Exam Present: RRR, S1, S2 - Routine Abdominal Exam Present: soft. Absent: guarding - Urinary Catheter Management Urethral Cath placed during this visit: yes Urethral indwelling: Yes Insertion date: 01/17/17 Insertion time: 13:40 Progress Note-A&P (1) Acute and chronic respiratory failure with hypercapnia Status: Acute Assessment and plan: stable. chronic hypercapnia. tolerating NIPPV well. Arrange for home. tolerating O2 at 2 lpm Current Visit: Yes (2) Morbid obesity with BMI of 50.0-59.9, adult Status: Acute Current Visit: Yes (3) Asthma-COPD overlap syndrome Problem details: With acute exacerbation Status: Acute Current Visit: Yes (4) Rhinovirus Status: Acute Current Visit: Yes (5) Pelvic mass in female Status: Acute Current Visit: Yes - Time Spent With Patient Total time spent is greater than 50% in coordination of care (as documented) at patient's floor/unit and/or counseling patient: less than 15 minutes Sepsis Assessment - Evaluation Sepsis screening result: No Definite Risk
[2017-01-26] MEDS: SULFAMETHOXAZOLE/TMP 800 MG/160 MG DS TABLET PO SCH ×2 (09:48→20:43)
[2017-01-26] MEDS: GLIMEPIRIDE 2 MG TABLET PO SCH (09:48)
[2017-01-26] MEDS: CARVEDILOL 6.25 MG TABLET PO SCH ×2 (09:48→17:38)
[2017-01-26] MEDS: GUAIFENESIN LA 600 MG TABLET PO SCH ×2 (09:48→20:43)
[2017-01-26] MEDS: LOSARTAN 50 MG TABLET PO SCH (09:49)
[2017-01-26] MEDS: PredniSONE 20 MG TABLET PO SCH (09:50)
--- NOTE | 2017-01-26 11:22 | Progress Note ---
<Shonda Gonzalez V - Last Filed: 01/26/17 11:19> Subjective: Flower us seen this morning. She continues to have expiratory wheezing noted on auscultation. She does continue on 2 liters of oxygen. Denies having any chest pain or GI concerns. Anxious about abdominal mass biopsy planned for later today. Objective Vital signs: Temperature 96.8 F 01/26/17 07:33 Pulse Rate 74 01/26/17 07:33 Respiratory Rate 24 01/26/17 10:54 Blood Pressure 101/71 01/26/17 07:33 Pulse Oximetry 95 01/26/17 10:54 Height/Weight/BMI: Height 1.55 m Weight 116.5 kg Body Mass Index 51.9 - Constitutional Present: no acute distress, well nourished, well developed - Routine HEENT Exam Eye: Present: EOMI ENT: Present: mucous membranes moist, dentition normal - Routine Respiratory Exam Present: wheezes - Routine Cardiovascular Exam Present: RRR, S1, S2. Absent: murmur - Routine Abdominal Exam Present: soft, normoactive bowel sounds, non distended. Absent: tenderness - Routine Extremities Exam Present: edema (trace bilateral lower ext), pulses intact - Routine Skin Exam Present: intact, dry, warm - Routine Neurological Exam Present: alert, oriented X3, CN II-XII intact - Routine Lymphatic Exam Lymphatic: Absent: adenopathy - Routine Psychiatric Exam Present: normal affect Results - Labs CBC & Chem 7: 01/26/17 04:29 01/26/17 04:29 Microbiology Results: Microbiology 01/17/17 18:10 Sputum, Expectorated Gram Stain - Final 01/17/17 18:10 Sputum, Expectorated Sputum Culture - Final Normal Respiratory Nikolai - ABG Interpretation ABG results: 01/18/17 07:05 ABG pH 7.423 ABG pCO2 56 H ABG pO2 82 ABG HCO3 36 H ABG Total CO2 38 H ABG O2 Saturation 96.0 ABG Base Excess 10.0 H Assessment and Plan (1) Acute CHF (congestive heart failure) Current visit: Yes Status: Acute (2) Acute and chronic respiratory failure Problem details: Hypoxic/chronic hypercarbia Current visit: Yes Status: Acute (3) Asthma-COPD overlap syndrome Problem details: With acute exacerbation Current visit: Yes Status: Acute (4) Pelvic mass in female Current visit: Yes Status: Acute Assessment and Plan: ASSESSMENT Acute Congestive Heart Failure - diastolic; Fluid overload; NYHA CHF Class IV COPD exacerbation Acute on Chronic Respiratory Failure-hypoxic/hypercarbic Pelvic mass, probable ovarian cancer E. coli UTI DM2, A1c 6.5 HTN Morbid obesity -BMI 49.1 Bilateral nephrolithiasis, right staghorn calculus Urinary urgency with incontinence Chronic loose stools Rhinovirus infection/URI-POA PLAN Scheduled for CT-guided biopsy of abdominal mass today under radiology supervision. Lovenox on hold for procedure Continue to work on breathing- Scheduled breathing tx and prednisone. Bactrim BID for treatment of UTI. Will need treatment till 02/10/17. Monitor renal function. Overall blood sugars have been well controlled. Fasting sugar this morning was low at 58. Discuss further plan of care with attending Dr Hackett Sepsis Assessment - Evaluation Sepsis screening result: No Definite Risk Hospital Course Summary Disclaimer: The visit summary below is not to be considered part of the above Progress Note. Hospital Course: 01/17/17 Admit to inpatient. *CV: Continue IV diuresis. Assess 2D Echo for EF. Add beta-kelly, JOCELYN/ARB as appropriate. Continue O2. CTA obtained- a bit limited due to artifact. Start prophylaxis lovenox. *Pulm: Continue O2. Nebs. Diurese. Add doxycycline for URI. No acute evidence of pneumonia. *DM2- Continue home medications as appropriate. Monitor accuchecks. *Loose stool- Hold home code liver oil May need outpatient endoscopy when more stable. *Urinary frequency, Urgency Urine cx pending. Bilateral hydronephrosis. May need to obtain CT abdomen/pelvis, as similar sx with prior kidney stones. Torres for now due to significant respiratory distress. 01/18/17 Overnight oximetry obtained on 2 L supplemental oxygen demonstrating minor desaturations. About 7 minutes less than 90%. Diuresing well, continue Lasix. Rhinovirus positive and continues to wheeze extensively with upper airway sounds and patient reports of mucous plugging. Mucinex LA added at 1200 mg twice a day, continue breathing treatments. Doxycycline switched to oral administration. Anticipate alternate antibiotics when cultures available-some limitations due to allergies. Continue oral steroids, prednisone dose dropped [address] Conklin consulted. Echocardiogram in a.m. Last A1c about one year ago-recheck. Blood pressure stable on current regimen. 01/19/17 Continues oxygen 2 liters by nasal cannula to maintain saturations. Continue nebulizers and Mucinex LA. Consult placed for Dr. Conklin for further pulmonary recommendations. Sputum culture reveals normal respiratory nikolai. She has continued on Doxycycline Continue with diuresis. Lasix 40 milligrams daily. Weight has trended down approximately 5 kilograms since admission. Continue on prednisone 40 milligrams daily to help with pulmonary inflammation Urine culture did reveal positive for Escherichia coli. Will have to discuss antibiotic coverage further with attending. Also consider starting Oxybutynin for chronic urinary incontinence Continue to monitor blood sugars, overall, these appear to be well controlled. Continue Amaryl, sliding scale NovoLog Lovenox SQ daily for DVT prophylaxis Echocardiogram read pending Will discuss further orders and plan of care with attending, Dr. Larsen 01/20/17 Continue on Bactrim for TX of UTI. Will try Bipap overnight as recommended by Dr Conklin. Encourage ambulation. 01/21/17 Bladder retraining in progress - anticipate discontinuing Torres tomorrow. Dr. Larsen has discussed case with Dr. Oseguera, urology. CT renal ordered. Respiratory status about the same as yesterday. Tolerated BiPAP her first night , but it was difficult to sleep well with the mask. Continue BiPAP HS and Prednisone [address] Conklin evaluated her yesterday - recommends home ventilation via face mask; agrees with prednisone burst and taper; neb treatments, acapella. Electrolytes - improving. Na down to 144, K 4.3. Bicarb decreasing, now at 35. BUN slowly increasing - if this continues may need to change abx (on Bactrim for E. coli UTI). Hyperglycemia, readings ranging from 84 (fasting yesterday) to 236 (postprandial ). Increase SSI to medium corrective regimen. Continue glimepiride. Echo: EF 58%; trace valvular disease with mild PH. 01/22/[address] reviewed with Mrs. Austin. I shared with her my concern that this represents an ovarian carcinoma. She's previously undergone hysterectomy but ovaries were left intact. She is at high surgical risk for pulmonary complications if debulking surgery were to be considered but wishes to discuss this further with Dr. Conklin and I have spoken with him to update him on findings. Additionally I've spoken with Dr. Montilla who will see the patient in consultation and offer recommendations. Management is complicated by the patient's limited mobility and difficulty getting to and from offices. Surgical intervention for nephrolithiasis not an option, continue antibiotics for UTI for 3 weeks and reassess urine after treatment completed. Suspect stones or infected. Tolerated BiPAP fairly well last night, will begin tapering prednisone. Blood sugars remain elevated with steroids, continue corrective insulin. Blood pressures modestly elevated but typically systolic around 150-do not believe additional interventions are needed. Further improvement anticipated with dropping steroids. Weight stable, continue oral Lasix at current dose. 01/23/17 Mrs. Austin updated that no additional findings on CT with contrast. She is planning to proceed with chemotherapy and surgery if surgery can be performed safely. Anticipate percutaneous biopsy of the pelvic mass on Wednesday. Respiratory status stable, prednisone titrated to 50 mg daily this morning. Was able to wear BiPAP all night last night-continue. Volume status stable. I would like to try discontinuing Torres catheter prior to discharge the patient is opposed to removal due to prior incontinence. Have discussed risks of infection with continued catheter. Asked patient to discuss risks with her daughter who is a nurse. Persistent postprandial hyperglycemia, primarily after lunch and supper-add scheduled insulin with those meals. Blood pressures normal to slightly elevated-continue to monitor. 01/24/17 CTs reviewed with the patient and her . Has been concerned that the patient's hernia reflected a mass that would require biopsy but imaging clearly show hernia. Ultrasound guided biopsy of pelvic mass ordered for tomorrow, have requested the patient wear BiPAP during procedure. Platelet count and INR to be reassessed in the morning prior to procedure. She is planning to proceed with chemotherapy and surgery if surgery can be performed safely. Respiratory status stable, prednisone titrated to 50 mg daily 01/23. Tolerating BiPAP well. Plan mask to event at discharge; paperwork completed by Dr. Conklin and on the chart. Negative fluid balance the last 3 days, creatinine up slightly-discontinue Lasix. Patient remains opposed to discontinuing Torres catheter and having symptoms with bladder training. Discontinue bladder training for now and again asked the patient discuss risks of long-term Foleys with her daughter and that she discuss Torres catheter during chemotherapy with Dr. Montilla. Insulin with lunch and dinner initiated today for postprandial hyperglycemia, remains on low-dose Amaryl as well for steroid-induced hyperglycemia. Blood pressures normal to slightly elevated-continue to monitor. 01/25/17 Not able to due Pelvic mass Bx today as had Lovenox this morning. Will hold Lovenox and plan for tomorrow. Discussed respiratory status with patient. Largely the same. Does get anxious with activities due to air hunger. Will give trial of lorazepam 0.5mg orally q4 hours as needed. Discussed side effects with patient. Watch for sedation. Obtain wheelchair for patient to help with mobility to appointments - she feels this would be very beneficial. Potentially decrease Prednisone to 40mg tomorrow. Monitor sugars - overall glycemic control stable. Check CXR to reassess status post diuresis. Continue with Bactrim DS BID due to E coli UTI - will need 3 week course due to stone. Recheck lab in am. Continue with supportive care. 01/26/[address]-guided biopsy of abdominal mass today under radiology supervision. Lovenox on hold for procedure Continue to work on breathing- Scheduled breathing tx and prednisone. Bactrim BID for treatment of UTI. Will need treatment till 02/10/17. Monitor renal function. Overall blood sugars have been well controlled. Fasting sugar this morning was low at 58. Discuss further plan of care with attending Dr Hackett <Arnulfo Hackett - Last Filed: 01/26/17 14:48> Objective Vital signs: Temperature 97.4 F 01/26/17 12:47 Pulse Rate 71 01/26/17 13:47 Respiratory Rate 18 01/26/17 13:47 Blood Pressure 128/70 01/26/17 13:47 Pulse Oximetry 96 01/26/17 13:47 Height/Weight/BMI: Height 1.55 m Weight 116.5 kg Body Mass Index 51.9 Results - Labs CBC & Chem 7: 01/26/17 04:29 01/26/17 04:29 Microbiology Results: Microbiology 01/17/17 18:10 Sputum, Expectorated Gram Stain - Final 01/17/17 18:10 Sputum, Expectorated Sputum Culture - Final Normal Respiratory Nikolai - ABG Interpretation ABG results: 01/18/17 07:05 ABG pH 7.423 ABG pCO2 56 H ABG pO2 82 ABG HCO3 36 H ABG Total CO2 38 H ABG O2 Saturation 96.0 ABG Base Excess 10.0 H Assessment and Plan (1) Acute CHF (congestive heart failure) Current visit: Yes Status: Acute (2) Acute and chronic respiratory failure Problem details: Hypoxic/chronic hypercarbia Current visit: Yes Status: Acute (3) Asthma-COPD overlap syndrome Problem details: With acute exacerbation Current visit: Yes Status: Acute (4) Pelvic mass in female Current visit: Yes Status: Acute Resuscitation Status: Full Code Assessment and Plan: ASSESSMENT Acute Congestive Heart Failure - diastolic; Fluid overload; NYHA CHF Class IV COPD exacerbation Acute on Chronic Respiratory Failure-hypoxic/hypercarbic Pelvic mass, probable ovarian cancer - Bx taken 01/26/17 E. coli UTI DM2, A1c 6.5 HTN Morbid obesity -BMI 49.1 Bilateral nephrolithiasis, right staghorn calculus Urinary urgency with incontinence Chronic loose stools Rhinovirus infection/URI-POA Have independently interviewed and examined pt. Chart reviewed. Case discussed with CM and my DESULFURIZER OPERATOR. Care plan developed with my supervision; agree with above. Doing okay today. Tolerated Bx-no pain at Bx site. Did walk with therapy today. Breathing fair-maybe not as good as yesterday but not far off baseline. Lungs: decreased, end expiratory wheezing. CV: regular AB: soft nt/nd +BS MSE: awake alert appropriate Plan: Discussed with patient about removing Torres-okay with Torres out at home, but worries about incontinence her. Will remove, as concern for bacteria present on cath (and also want to be sure pt does not have retention). Discussed this at length with patient. Additionally ask if she had used lorazepam. She reports it was not offered. Reminded pt that it is there as needed and she should ask for lorazepam if she feels the needed. Discussed about use of this medicine and abuse; encourage her to use it judiciously. Encourage continued activities. CM getting wheelchair arrangements made. Likely able to discharge to home tomorrow if pt is doing well. Hospital Course Summary Disclaimer: The visit summary below is not to be considered part of the above Progress Note.
[2017-01-26] MEDS ORDERED: LIDOCAINE 1% (10mg/ml) 5ml PF SDV ONE (11:36)
[2017-01-26] MEDS: INSULIN ASPART 100unit/ml INJECTION SQ SCH ×2 (12:09→17:37)
[2017-01-26] MEDS: INSULIN ASPART 100unit/ml INJECTION SQ PRN ×2 (12:49→21:48)
--- NOTE | 2017-01-26 14:32 | CT Scan Report ---
Indication:Pelvic/omental caking mass c/w ovarian cancer Procedure:CT biopsy retroperitoneum OMENTUM BIOPSY WITH CT GUIDANCE: The details of the procedure, including the risks, where discussed with the patient. All of her questions were answered. Informed consent was obtained. Using aseptic technique, local lidocaine anesthetic, and CT guidance throughout, a 17-gauge coaxial needle was advanced into a thickened area of omentum located anteriorly and just to the right of midline, approximately 2 inches above the umbilicus. An 18-gauge 33mm throw core Biopince biopsy needle was advanced through the coaxial needle to obtain three tissue samples. The samples were placed in formalin and sent to lab for the requested studies. The coaxial needle was removed. The patient tolerated this procedure well. Following this, the patient was taken back to her room on the medical floor. She tolerated this procedure well. Impression: Technically successful CT-guided core biopsy of an area of anterior omental thickening. Tomas Ramirez RPA/BRAYDEN performed this under my personal supervision. .
[2017-01-26] MEDS: SALINE FLUSH 10ml SYRINGE IVF PRN (20:43)
[2017-01-27] MEDS: GUAIFENESIN LA 600 MG TABLET PO SCH ×2 (08:07→21:01)
[2017-01-27] MEDS: LOSARTAN 50 MG TABLET PO SCH (08:08)
[2017-01-27] MEDS: CARVEDILOL 6.25 MG TABLET PO SCH ×2 (08:08→18:07)
[2017-01-27] MEDS: PredniSONE 20 MG TABLET PO SCH (08:08)
[2017-01-27] MEDS: SULFAMETHOXAZOLE/TMP 800 MG/160 MG DS TABLET PO SCH ×2 (08:08→21:01)
[2017-01-27] MEDS: GLIMEPIRIDE 2 MG TABLET PO SCH (08:08)
[2017-01-27] MEDS: ALBUTEROL 2.5mg/3ml (0.083%) NEB AEROSOL SCH ×4 (08:44→19:48)
--- NOTE | 2017-01-27 10:37 | Discharge Instructions ---
Discharge Plan - Med Rec/Dispo Referrals/Follow Up: Eldon Conklin MD [Physician] - (Please schedule follow up for 1 month in [place]) Reshma Montilla MD [Physician] - (Please schedule follow up apt for 1-2 weeks ) Nida Crow MD [Physician] - (Please schedule follow up apt with Dr Crow for 1 week Will need BMP labs on 02/01. Sent to Dr Crow) Tru[place] Instructions: Hypoxia (GEN) Additional Instructions: Home health with [facility] health care Prescriptions: New Carvedilol [Coreg] 6.25 mg PO BIDWM #30 tab Furosemide [Lasix] 40 mg PO DAILY #30 tab Sulfamethox/Tmp [Bactrim Ds] 1 tab PO BID #28 tab Acetaminophen [Tylenol] 325 - 650 mg PO Q5H PRN tablet PRN Reason: Discomfort Albuterol Neb (0.083%) [Proventil Neb (0.083%)] 2.5 mg AEROSOL RTQID neb Guaifenesin LA [Mucinex LA] 1,200 mg PO BID tablet Continue Vitamin D 1 tab PO DAILY Cod Liver Oil 1 cap PO DAILY Potassium Chloride [K-Dur] 20 meq PO DAILY Losartan [Cozaar] 25 mg PO DAILY PredniSONE [Deltasone] 15 mg PO DAILY #40 tab Albuterol Sulfate [Ventolin Hfa] 1 puff IH BID PRN #0 PRN Reason: Prn Orders Glimepiride [Amaryl] 2 mg PO DAILY No Action Ibuprofen 200 mg PO Q4H PRN PRN Reason: Pain Discharge Instructions/Outpatient Orders: Final Provider Discharge Instructions Location: Determined By Patient - Disposition 01 Discharged Home, Self-Care
--- NOTE | 2017-01-27 10:38 | Pulmonology Progress Note ---
Subjective Interval history: Pt currently on O2 at 2L per N[place] and tolerating well, has been using her bipap at night without issues. + cough with sputum noted. Has a large pelvic mass with possible intraabdominal metastases, elevated CA 125, s/p Bx yesterday. Exam Vital signs: Temperature 97.3 F 01/27/17 07:46 Pulse Rate 72 01/27/17 07:46 Respiratory Rate 18 01/27/17 07:46 Blood Pressure 145/62 H 01/27/17 07:46 Pulse Oximetry 97 01/27/17 07:46 - Constitutional no acute distress, morbidly obese - Routine HEENT Exam Head: Present: normocephalic, atraumatic Eye: Present: EOMI, PERRL - Routine Neck Exam Present: supple, full ROM - Routine Respiratory Exam Present: decreased breath sounds, rhonchi - Routine Cardiovascular Exam Present: S1, no murmur - Routine Abdominal Exam Present: soft, normoactive bowel sounds - Routine Extremities Exam Present: edema, full ROM - Routine Back/Spine/Pelvis Exam Back/Spine: Present: full ROM, CVA tenderness - Routine Skin Exam Present: intact, dry - Routine Neurological Exam Present: alert, oriented X3, CN II-XII intact - Routine Psychiatric Exam Present: normal affect, normal thought process - Urinary Catheter Management Urethral Cath placed during this visit: yes Urethral indwelling: Yes Reason for continuing: Acute Urinary Retention Insertion date: 01/17/17 Insertion time: 13:40 Progress Note-A&P (1) Acute and chronic respiratory failure with hypercapnia Status: Acute Assessment and plan: Pt currently on O2 at 2L per [place], tolerating. has a home vent already ordered, will continue this for her A/C Hypercapnic respiratory Failure secondary to her COPD. Without her home trilogy ventilator she will be at higher risk for decompensation and even . Current Visit: Yes (2) Morbid obesity with BMI of 50.0-59.9, adult Status: Acute Current Visit: Yes (3) Asthma-COPD overlap syndrome Problem details: With acute exacerbation Status: Acute Assessment and plan: Currently on albuterol, continue with acapella at home. Current Visit: Yes (4) Rhinovirus Status: Acute Assessment and plan: supportive care Current Visit: Yes (5) Acute CHF (congestive heart failure) Status: Acute Assessment and plan: Currently on lasix 40mg, discussed diet guidelines for CHF. encouraged her to address increased swelling with her PCP if noted once dismissed. Current Visit: Yes - Time Spent With Patient Total time spent is greater than 50% in coordination of care (as documented) at patient's floor/unit and/or counseling patient: less than 15 minutes Sepsis Assessment - Evaluation Sepsis screening result: No Definite Risk
--- NOTE | 2017-01-27 11:57 | Progress Note ---
Oncology Subjective The patient remained stable with no problems. She underwent CT-guided biopsy of the omental mass yesterday without complications. Pathology is pending. Exam Vital signs: Temperature 97.3 F 01/27/17 07:46 Pulse Rate 72 01/27/17 07:46 Respiratory Rate 22 01/27/17 11:37 Blood Pressure 145/62 H 01/27/17 07:46 Pulse Oximetry 95 01/27/17 11:37 - Constitutional no acute distress, morbidly obese - Routine Respiratory Exam Present: dyspnea, decreased breath sounds, rales, rhonchi - Routine Cardiovascular Exam Present: RRR. Absent: JVD - Routine Abdominal Exam Present: normoactive bowel sounds, non tender, mass Comments: Abdomen is obese. There is a soft tissue mass in the left flank area. Oncology Results - Labs CBC & Chem 7: 01/26/17 04:29 01/27/17 04:26 Labs: BMP 01/27/17 04:26 Sodium 143 Potassium 3.9 Chloride 104 Carbon Dioxide 30 BUN 37.0 H Creatinine 1.2 Glucose 56 L Calcium 8.8 Assessment and Plan Assessment and Plan: 1. Large pelvic mass with omental caking highly suggestive of locally advanced ovarian cancer. 2. Comorbidities including chronic lung disease with long-term use of steroids , morbid obesity and borderline performance status. We will wait for the pathology from the CT-guided biopsy of the omental mass. - Time Spent With Patient Total time spent is greater than 50% in coordination of care (as documented) at patient's floor/unit and/or counseling patient: 25 - 35 minutes Sepsis Assessment - Evaluation Sepsis screening result: No Definite Risk
[2017-01-27] MEDS: INSULIN ASPART 100unit/ml INJECTION SQ SCH ×2 (12:24→18:07)
--- NOTE | 2017-01-27 13:57 | Discharge Summary ---
<Shonda Gonzalez V - Last Filed: 01/27/17 13:52> Discharge Information Date of admission: 01/17/17 15:50 Attending Physician: Arnulfo Hackett MD Primary care physician: Dr Nida Clifford Consults: Consulted physicians during patient's hospitalization- 1. Eldon Conklin- Pulmonology 2. Yaya Oseguera- urology 3. Rehsma Montilla- oncology - Discharge Diagnosis (1) Acute CHF (congestive heart failure) Status: Resolved (2) Acute and chronic respiratory failure Status: Chronic (3) Asthma-COPD overlap syndrome Status: Chronic (4) Pelvic mass in female Status: Acute Discharge Diagnosis: Acute Congestive Heart Failure - diastolic; Fluid overload; NYHA CHF Class IV COPD exacerbation Acute on Chronic Respiratory Failure-hypoxic/hypercarbic Pelvic mass, probable ovarian cancer E. coli UTI DM2, A1c 6.5 HTN Morbid obesity -BMI 49.1 Bilateral nephrolithiasis, right staghorn calculus Urinary urgency with incontinence Chronic loose stools Rhinovirus infection/URI-POA - Procedures Procedures: 01/26/17-CT guided biopsy of abdominal mass by radiology - Laboratory Labs: 01/26/17 04:29 01/27/17 04:26 - Microbiology Microbiology 01/17/17 18:10 Sputum, Expectorated Gram Stain - Final 01/17/17 18:10 Sputum, Expectorated Sputum Culture - Final Normal Respiratory Nikolai - Radiology Radiology: 01/17-CT chest- Impression: 1. No large or central pulmonary embolus. Possible pulmonary artery hypertension. 2. Right pleural effusion and ascites of uncertain etiology. Findings could represent volume overload or CHF. Gallbladder disease is also a consideration. Right upper quadrant ultrasound may be helpful for further evaluation as clinically indicated. 01/17/17- Chest Xray Impression: 1. No focal pneumonia. Mild pulmonary edema or CHF. 2. Possible pulmonary artery hypertension. 01/19/17- ECHO IMPRESSION- 1. Technically very difficult study. 2. Normal LV systolic function with ejection fraction of 58%. 3. Left ventricular hypertrophy. 4. Trace of mitral regurgitation. 5. Trace of tricuspid regurgitation with mild pulmonary hypertension with estimated pulmonary artery systolic pressure of 38. 6. Trace of pulmonary insufficiency. 01/21/17- CT renal sonogram- Impression: 1. Large pelvic mass probably representing a gynecologic malignancy that could be arising from the ovaries or uterus. Extensive omental metastatic disease. Gynecologic oncologic consultation is recommended. 2. Large bilateral renal stone burden with a developing staghorn calculus in the right kidney. 01/23/17- CT chest, abdomen, pelvis- Impression: 1. Large pelvic mass that could be from the ovary or uterus with evidence of extensive omental and peritoneal metastatic spread. Gynecologic oncologic consultation is recommended. 2. Right pleural effusion without other associated findings to suggest metastatic disease in the chest. 01/25/17-chest x-ray- Impression- 1. Limited depth of inspiration with small residual right pleural effusion suggested. The left lung appears clear. 2. Heart size is upper limits normal. 3. S-type scoliosis suggested. - Pathology 01/26/17- Omentum biopsy - pathology pending at time of discharge History of Present Illness HPI: Flower is a pleasant 71 yo, chronically disabled female. She reports that she has been essentially homebound for the last year due to SOA. She sees Dr. Conklin for her chronic lung disease, and is on oxygen at 2- 3liters ongoing. She does not wear CPAP, and has not been diagnosed with sleep apnea. She denies history of heart disease or CHF. She did undergo a heart cath by Dr. Roberts and [facility] 2-3 years ago, which she reports as normal. She has not needed to follow up with Dr. Roberts. She does have a history of DM2, which she attributes to frequent steroid use. She has recently tried to diet without much success. She is unclear if she has gained or lost weight. She was previously on Lasix, which she stopped due to urinary incontinence. She reports needing to urinate Q 20 minutes, with urgency, frequency, and incontinence. She states a sharp pain prior to need to urinate. Upon review of her record, she has had extensive history of kidney stones with hydronephrosis requiring intervention by Dr. Resendiz. She reported urgency and incontinence in the past with her prior kidney stone occurrences. She denies any fever or chills. Reports that she has been coughing up yellow sputum. No abdominal c/o, no N/V/D. Does reports some soft stool, but need to strain when having BM. One incidence of blood in stool, which she attributes to hemorrhoids. Reports and abdominal protrusion at site of prior hiatal hernia repair. She reports chronic right hip pain, worse with ambulation and intermittent "giving out" when trying to walk. Denies recent fall or injury. Hospital Course This is a general summary of the patient's hospital course. For more details refer to the complete medical record. Hospital course: 01/17/17 Admit to inpatient. *CV: Continue IV diuresis. Assess 2D Echo for EF. Add beta-kelly, JOCELYN/ARB as appropriate. Continue O2. CTA obtained- a bit limited due to artifact. Start prophylaxis lovenox. *Pulm: Continue O2. Nebs. Diurese. Add doxycycline for URI. No acute evidence of pneumonia. *DM2- Continue home medications as appropriate. Monitor accuchecks. *Loose stool- Hold home code liver oil May need outpatient endoscopy when more stable. *Urinary frequency, Urgency Urine cx pending. Bilateral hydronephrosis. May need to obtain CT abdomen/pelvis, as similar sx with prior kidney stones. Torres for now due to significant respiratory distress. 01/18/17 Overnight oximetry obtained on 2 L supplemental oxygen demonstrating minor desaturations. About 7 minutes less than 90%. Diuresing well, continue Lasix. Rhinovirus positive and continues to wheeze extensively with upper airway sounds and patient reports of mucous plugging. Mucinex LA added at 1200 mg twice a day, continue breathing treatments. Doxycycline switched to oral administration. Anticipate alternate antibiotics when cultures available-some limitations due to allergies. Continue oral steroids, prednisone dose dropped [address] Conklin consulted. Echocardiogram in a.m. Last A1c about one year ago-recheck. Blood pressure stable on current regimen. 01/19/17 Continues oxygen 2 liters by nasal cannula to maintain saturations. Continue nebulizers and Mucinex LA. Consult placed for Dr. Conklin for further pulmonary recommendations. Sputum culture reveals normal respiratory nikolai. She has continued on Doxycycline Continue with diuresis. Lasix 40 milligrams daily. Weight has trended down approximately 5 kilograms since admission. Continue on prednisone 40 milligrams daily to help with pulmonary inflammation Urine culture did reveal positive for Escherichia coli. Will have to discuss antibiotic coverage further with attending. Also consider starting Oxybutynin for chronic urinary incontinence Continue to monitor blood sugars, overall, these appear to be well controlled. Continue Amaryl, sliding scale NovoLog Lovenox SQ daily for DVT prophylaxis Echocardiogram read pending Will discuss further orders and plan of care with attending, Dr. Larsen 01/20/17 Continue on Bactrim for TX of UTI. Will try Bipap overnight as recommended by Dr Conklin. Encourage ambulation. 01/21/17 Bladder retraining in progress - anticipate discontinuing Torres tomorrow. Dr. Larsen has discussed case with Dr. Oseguera, urology. CT renal ordered. Respiratory status about the same as yesterday. Tolerated BiPAP her first night , but it was difficult to sleep well with the mask. Continue BiPAP HS and Prednisone [address] Conklin evaluated her yesterday - recommends home ventilation via face mask; agrees with prednisone burst and taper; neb treatments, acapella. Electrolytes - improving. Na down to 144, K 4.3. Bicarb decreasing, now at 35. BUN slowly increasing - if this continues may need to change abx (on Bactrim for E. coli UTI). Hyperglycemia, readings ranging from 84 (fasting yesterday) to 236 (postprandial ). Increase SSI to medium corrective regimen. Continue glimepiride. Echo: EF 58%; trace valvular disease with mild PH. 01/22/[address] reviewed with Mrs. Austin. I shared with her my concern that this represents an ovarian carcinoma. She's previously undergone hysterectomy but ovaries were left intact. She is at high surgical risk for pulmonary complications if debulking surgery were to be considered but wishes to discuss this further with Dr. Conklin and I have spoken with him to update him on findings. Additionally I've spoken with Dr. Montilla who will see the patient in consultation and offer recommendations. Management is complicated by the patient's limited mobility and difficulty getting to and from offices. Surgical intervention for nephrolithiasis not an option, continue antibiotics for UTI for 3 weeks and reassess urine after treatment completed. Suspect stones or infected. Tolerated BiPAP fairly well last night, will begin tapering prednisone. Blood sugars remain elevated with steroids, continue corrective insulin. Blood pressures modestly elevated but typically systolic around 150-do not believe additional interventions are needed. Further improvement anticipated with dropping steroids. Weight stable, continue oral Lasix at current dose. 01/23/17 Mrs. Austin updated that no additional findings on CT with contrast. She is planning to proceed with chemotherapy and surgery if surgery can be performed safely. Anticipate percutaneous biopsy of the pelvic mass on Wednesday. Respiratory status stable, prednisone titrated to 50 mg daily this morning. Was able to wear BiPAP all night last night-continue. Volume status stable. I would like to try discontinuing Torres catheter prior to discharge the patient is opposed to removal due to prior incontinence. Have discussed risks of infection with continued catheter. Asked patient to discuss risks with her daughter who is a nurse. Persistent postprandial hyperglycemia, primarily after lunch and supper-add scheduled insulin with those meals. Blood pressures normal to slightly elevated-continue to monitor. 01/24/17 CTs reviewed with the patient and her . Has been concerned that the patient's hernia reflected a mass that would require biopsy but imaging clearly show hernia. Ultrasound guided biopsy of pelvic mass ordered for tomorrow, have requested the patient wear BiPAP during procedure. Platelet count and INR to be reassessed in the morning prior to procedure. She is planning to proceed with chemotherapy and surgery if surgery can be performed safely. Respiratory status stable, prednisone titrated to 50 mg daily 01/23. Tolerating BiPAP well. Plan mask to event at discharge; paperwork completed by Dr. Conklin and on the chart. Negative fluid balance the last 3 days, creatinine up slightly-discontinue Lasix. Patient remains opposed to discontinuing Torres catheter and having symptoms with bladder training. Discontinue bladder training for now and again asked the patient discuss risks of long-term Foleys with her daughter and that she discuss Torres catheter during chemotherapy with Dr. Montilla. Insulin with lunch and dinner initiated today for postprandial hyperglycemia, remains on low-dose Amaryl as well for steroid-induced hyperglycemia. Blood pressures normal to slightly elevated-continue to monitor. 01/25/17 Not able to due Pelvic mass Bx today as had Lovenox this morning. Will hold Lovenox and plan for tomorrow. Discussed respiratory status with patient. Largely the same. Does get anxious with activities due to air hunger. Will give trial of lorazepam 0.5mg orally q4 hours as needed. Discussed side effects with patient. Watch for sedation. Obtain wheelchair for patient to help with mobility to appointments - she feels this would be very beneficial. Potentially decrease Prednisone to 40mg tomorrow. Monitor sugars - overall glycemic control stable. Check CXR to reassess status post diuresis. Continue with Bactrim DS BID due to E coli UTI - will need 3 week course due to stone. Recheck lab in am. Continue with supportive care. 01/26/[address]-guided biopsy of abdominal mass today under radiology supervision. Lovenox on hold for procedure Continue to work on breathing- Scheduled breathing tx and prednisone. Bactrim BID for treatment of UTI. Will need treatment till 02/10/17. Monitor renal function. Overall blood sugars have been well controlled. Fasting sugar this morning was low at 58. Discuss further plan of care with attending Dr Hackett 01/27/17- Discharge Date Overall respiratory status is back to baseline on day of discharge. She is currently on 2 liters of oxygen by nasula canula. She Will be sent home on trilogy ventilator to utilize at night as recommended by pulmonology team. Given her acute on chronic hypercapnic respiratory failure secondary to COPD. She is to continue on prednisone's taper. Will decrease to 30 milligrams daily 5 days, then 20 milligrams daily 5 days, then down to baseline prednisone at 15 milligrams daily. Follow up apt with Dr. Conklin in one month. In light of chronic renal nephrolithiasis with recurrent urinary tract infection as recommended by Dr. Oseguera, urologist that patient be treated for a total of 3 weeks of antibiotic therapy. She will continue on Bactrim twice a day for 14 additional days, with the final dose being on 02/10/17. Lasix 40 mg daily for ongoing diuresis with oral potassium supplementation. Will need to follow BMP routinely. Next check Thursday 02/[address] Clifford. Patient is to follow-up with Dr. Montilla in the next 1-2 weeks for pathology results and ongoing recommendation for treatment. Patient will be discharged home with . Discharge plans discussed with patient, , and primary care provider, Dr. Nida Clifford ([facility]). She will follow Flower in the outpatient setting. Time spent with patient: discharge greater than 30 minutes Discharge Plan - Med Rec/Dispo Referrals/Follow Up: Nida Clifford MD [Physician] - (Please schedule follow up apt with Dr Clifford for 1 week Will need BMP labs on 02/01. appoitment on 02/04 at 11:15 around home visit. APPOINTMENT CONFIRMED FOR A HOME VISIT WITH DR. CLIFFORD AT 11:00 AM, PHONE NUMBER [phone] ) Reshma Montilla MD [Physician] - (Please schedule follow up apt for 1-2 weeks APPOINTMENT ON 02/03 AT 2:40. APPOINTMENT SCHEDULED ON 02/03/2017 AT 2:4O PM, PHONE NUMBER [phone]) Eldon Conklin MD [Physician] - (Please schedule follow up for 1 month in [place] APPOINTMENT ON 02/23 AT 1:20 APPOINTMENT CONFIRMED FOR 02/23/2017 AT 1:20 PM AT [facility] [place], PHONE NUMBER [phone]) [place] Instructions: Hypoxia (GEN) Additional Instructions: Home health with [facility] Prescriptions: New Carvedilol [Coreg] 6.25 mg PO BIDWM #30 tab Furosemide [Lasix] 40 mg PO DAILY #30 tab Sulfamethox/Tmp [Bactrim Ds] 1 tab PO BID #28 tab Acetaminophen [Tylenol] 325 - 650 mg PO Q5H PRN tab PRN Reason: Discomfort Albuterol Neb (0.083%) [Proventil Neb (0.083%)] 2.5 mg AEROSOL RTQID neb Guaifenesin LA [Mucinex LA] 1,200 mg PO BID tab LORazepam [Ativan] 0.5 mg PO Q4-6HPRN PRN #20 tab PRN Reason: Anxiety Continue Vitamin D 1 tab PO DAILY Cod Liver Oil 1 cap PO DAILY Potassium Chloride [K-Dur] 20 meq PO DAILY Losartan [Cozaar] 25 mg PO DAILY PredniSONE [Deltasone] 15 mg PO DAILY #40 tab Albuterol Sulfate [Ventolin Hfa] 1 puff IH BID PRN #0 PRN Reason: Prn Orders Glimepiride [Amaryl] 2 mg PO DAILY No Action Ibuprofen 200 mg PO Q4H PRN PRN Reason: Pain Discharge Instructions/Outpatient Orders: Provider Discharge Instructions Location: Determined By Patient - Disposition [facility] <Arnulfo Hackett - Last Filed: 04/06/17 15:57> Discharge Information Date of admission: 01/17/17 15:50 Attending Physician: Arnulfo Hackett MD Primary care physician: Jelani Anderson II, MD Consults: 01/18/17 15:53 Physician Consult [CONS] Routine Consulting Provider: Eldon Conklin Reason For Exam: respiratory failure Ordering Provider has Notified Sports Physician: Yes 01/21/17 14:45 Physician Consult [CONS] Routine Consulting Provider: Yaya Oseguera Reason For Exam: nephrolithiasis Ordering Provider has Notified Sports Physician: Yes 01/22/17 12:17 Physician Consult [CONS] Routine Consulting Provider: Reshma Montilla Reason For Exam: pelvic mass Ordering Provider has Notified Sports Physician: Yes - Discharge Diagnosis (1) Acute CHF (congestive heart failure) Status: Resolved (2) Acute and chronic respiratory failure Status: Chronic (3) Asthma-COPD overlap syndrome Status: Chronic (4) Pelvic mass in female Status: Acute - Laboratory Labs: 01/26/17 04:29 01/27/17 04:26 - Microbiology Microbiology 01/17/17 18:10 Sputum, Expectorated Gram Stain - Final 01/17/17 18:10 Sputum, Expectorated Sputum Culture - Final Normal Respiratory Nikolai Hospital Course This is a general summary of the patient's hospital course. For more details refer to the complete medical record. Discharge Plan - Med Rec/Dispo - Attestation Attestation Narrative: 01/27/17 15:40 Have independently interviewed and examined pt prior to discharge. Chart reviewed. Case discussed with CM and my FINANCIAL SERVICES REPRESENTATIVE. Care plan developed with my supervision; agree with above. Doing okay today. Breathing stable. Participating well with therapy-walking father (200 ft). Eating well. Lungs: decreased, end expiratory wheezes bilaterally. No distress on RA. CV: regular AB: soft nt/nd +BS MSE: awake alert appropriate Plan: Medically stable for discharge to home. Arrangements for post hospital care made. See orders for details.
[2017-01-27] MEDS: INSULIN ASPART 100unit/ml INJECTION SQ PRN ×2 (14:29→21:02)
--- NOTE | 2017-01-27 18:14 | Progress Note ---
Subjective: F/U: Acute CHF, COPD with acute exacerbation. Doing well today. Breathing stable. Working well with therapy-able to go about 200 feet. No f/c. Objective Vital signs: Temperature 97.4 F 01/27/17 16:00 Pulse Rate 78 01/27/17 16:00 Respiratory Rate 20 01/27/17 16:00 Blood Pressure 166/93 H 01/27/17 16:00 Pulse Oximetry 95 01/27/17 16:00 Height/Weight/BMI: Height 1.55 m Weight 117.8 kg Body Mass Index 51.9 - Constitutional Present: no acute distress, well nourished, well developed, morbidly obese, cooperative - Routine HEENT Exam Head: Present: normocephalic, atraumatic Eye: Present: EOMI, PERRL ENT: Present: mucous membranes moist - Routine Respiratory Exam Present: decreased breath sounds, wheezes (End expiratory ), distant breath sounds, diminished air movement - Routine Cardiovascular Exam Present: RRR - Routine Abdominal Exam Present: soft, normoactive bowel sounds, non distended, non tender - Routine Extremities Exam Present: pulses intact. Absent: cyanosis, clubbing - Routine Musculoskeletal Exam Musculoskeletal: Present: no clubbing or cyanosis, normal strength - Routine Skin Exam Present: intact, warm - Routine Neurological Exam Present: alert, oriented X3, CN II-XII intact, moving all extremities, vision grossly intact, hearing grossly intact - Routine Psychiatric Exam Present: normal affect, cooperative. Absent: anxious, agitated Results - Labs CBC & Chem 7: 01/26/17 04:29 01/27/17 04:26 Microbiology Results: Microbiology 01/17/17 18:10 Sputum, Expectorated Gram Stain - Final 01/17/17 18:10 Sputum, Expectorated Sputum Culture - Final Normal Respiratory Nikolai - ABG Interpretation ABG results: 01/18/17 07:05 ABG pH 7.423 ABG pCO2 56 H ABG pO2 82 ABG HCO3 36 H ABG Total CO2 38 H ABG O2 Saturation 96.0 ABG Base Excess 10.0 H Assessment and Plan (1) Acute CHF (congestive heart failure) Current visit: Yes Status: Resolved (2) Acute and chronic respiratory failure Problem details: Hypoxic/chronic hypercarbia Current visit: Yes Status: Chronic (3) Asthma-COPD overlap syndrome Problem details: With acute exacerbation Current visit: Yes Status: Chronic (4) Pelvic mass in female Current visit: Yes Status: Acute Resuscitation Status: Full Code Assessment and Plan: ASSESSMENT Acute Congestive Heart Failure - diastolic; Fluid overload; NYHA CHF Class IV COPD exacerbation Acute on Chronic Respiratory Failure-hypoxic/hypercarbic Pelvic mass - Bx taken 01/26/17 - 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 E. coli UTI DM2, A1c 6.5 HTN Morbid obesity -BMI 49.1 Bilateral nephrolithiasis, right staghorn calculus Urinary urgency with incontinence Chronic loose stools Rhinovirus infection/URI-POA Plan Arrangements made for discharge. Orders placed. Follow up set up. Dr Montilla called this afternoon with report of Bx - ovarian cancer. He does recommend power port placement prior to discharge, worries with her CP status trying to do this in outpatient setting may be problematic. Consult place to Dr Goodwin for evaluation. Able to do procedure tomorrow. Will hold on discharge plans for today so port can be placed tomorrow. Sepsis Assessment - Evaluation Sepsis screening result: No Definite Risk Hospital Course Summary Disclaimer: The visit summary below is not to be considered part of the above Progress Note. Hospital Course: 01/17/17 Admit to inpatient. *CV: Continue IV diuresis. Assess 2D Echo for EF. Add beta-kelly, JOCELYN/ARB as appropriate. Continue O2. CTA obtained- a bit limited due to artifact. Start prophylaxis lovenox. *Pulm: Continue O2. Nebs. Diurese. Add doxycycline for URI. No acute evidence of pneumonia. *DM2- Continue home medications as appropriate. Monitor accuchecks. *Loose stool- Hold home code liver oil May need outpatient endoscopy when more stable. *Urinary frequency, Urgency Urine cx pending. Bilateral hydronephrosis. May need to obtain CT abdomen/pelvis, as similar sx with prior kidney stones. Torres for now due to significant respiratory distress. 01/18/17 Overnight oximetry obtained on 2 L supplemental oxygen demonstrating minor desaturations. About 7 minutes less than 90%. Diuresing well, continue Lasix. Rhinovirus positive and continues to wheeze extensively with upper airway sounds and patient reports of mucous plugging. Mucinex LA added at 1200 mg twice a day, continue breathing treatments. Doxycycline switched to oral administration. Anticipate alternate antibiotics when cultures available-some limitations due to allergies. Continue oral steroids, prednisone dose dropped [address] Conklin consulted. Echocardiogram in a.m. Last A1c about one year ago-recheck. Blood pressure stable on current regimen. 01/19/17 Continues oxygen 2 liters by nasal cannula to maintain saturations. Continue nebulizers and Mucinex LA. Consult placed for Dr. Conklin for further pulmonary recommendations. Sputum culture reveals normal respiratory nikolai. She has continued on Doxycycline Continue with diuresis. Lasix 40 milligrams daily. Weight has trended down approximately 5 kilograms since admission. Continue on prednisone 40 milligrams daily to help with pulmonary inflammation Urine culture did reveal positive for Escherichia coli. Will have to discuss antibiotic coverage further with attending. Also consider starting Oxybutynin for chronic urinary incontinence Continue to monitor blood sugars, overall, these appear to be well controlled. Continue Amaryl, sliding scale NovoLog Lovenox SQ daily for DVT prophylaxis Echocardiogram read pending Will discuss further orders and plan of care with attending, Dr. Larsen 01/20/17 Continue on Bactrim for TX of UTI. Will try Bipap overnight as recommended by Dr Conklin. Encourage ambulation. 01/21/17 Bladder retraining in progress - anticipate discontinuing Torres tomorrow. Dr. Larsen has discussed case with Dr. Oseguera, urology. CT renal ordered. Respiratory status about the same as yesterday. Tolerated BiPAP her first night , but it was difficult to sleep well with the mask. Continue BiPAP HS and Prednisone [address] Conklin evaluated her yesterday - recommends home ventilation via face mask; agrees with prednisone burst and taper; neb treatments, acapella. Electrolytes - improving. Na down to 144, K 4.3. Bicarb decreasing, now at 35. BUN slowly increasing - if this continues may need to change abx (on Bactrim for E. coli UTI). Hyperglycemia, readings ranging from 84 (fasting yesterday) to 236 (postprandial ). Increase SSI to medium corrective regimen. Continue glimepiride. Echo: EF 58%; trace valvular disease with mild PH. 01/22/[address] reviewed with Mrs. Austin. I shared with her my concern that this represents an ovarian carcinoma. She's previously undergone hysterectomy but ovaries were left intact. She is at high surgical risk for pulmonary complications if debulking surgery were to be considered but wishes to discuss this further with Dr. Conklin and I have spoken with him to update him on findings. Additionally I've spoken with Dr. Montilla who will see the patient in consultation and offer recommendations. Management is complicated by the patient's limited mobility and difficulty getting to and from offices. Surgical intervention for nephrolithiasis not an option, continue antibiotics for UTI for 3 weeks and reassess urine after treatment completed. Suspect stones or infected. Tolerated BiPAP fairly well last night, will begin tapering prednisone. Blood sugars remain elevated with steroids, continue corrective insulin. Blood pressures modestly elevated but typically systolic around 150-do not believe additional interventions are needed. Further improvement anticipated with dropping steroids. Weight stable, continue oral Lasix at current dose. 01/23/17 Mrs. Austin updated that no additional findings on CT with contrast. She is planning to proceed with chemotherapy and surgery if surgery can be performed safely. Anticipate percutaneous biopsy of the pelvic mass on Wednesday. Respiratory status stable, prednisone titrated to 50 mg daily this morning. Was able to wear BiPAP all night last night-continue. Volume status stable. I would like to try discontinuing Torres catheter prior to discharge the patient is opposed to removal due to prior incontinence. Have discussed risks of infection with continued catheter. Asked patient to discuss risks with her daughter who is a nurse. Persistent postprandial hyperglycemia, primarily after lunch and supper-add scheduled insulin with those meals. Blood pressures normal to slightly elevated-continue to monitor. 01/24/17 CTs reviewed with the patient and her . Has been concerned that the patient's hernia reflected a mass that would require biopsy but imaging clearly show hernia. Ultrasound guided biopsy of pelvic mass ordered for tomorrow, have requested the patient wear BiPAP during procedure. Platelet count and INR to be reassessed in the morning prior to procedure. She is planning to proceed with chemotherapy and surgery if surgery can be performed safely. Respiratory status stable, prednisone titrated to 50 mg daily 01/23. Tolerating BiPAP well. Plan mask to event at discharge; paperwork completed by Dr. Conklin and on the chart. Negative fluid balance the last 3 days, creatinine up slightly-discontinue Lasix. Patient remains opposed to discontinuing Torres catheter and having symptoms with bladder training. Discontinue bladder training for now and again asked the patient discuss risks of long-term Foleys with her daughter and that she discuss Torres catheter during chemotherapy with Dr. Montilla. Insulin with lunch and dinner initiated today for postprandial hyperglycemia, remains on low-dose Amaryl as well for steroid-induced hyperglycemia. Blood pressures normal to slightly elevated-continue to monitor. 01/25/17 Not able to due Pelvic mass Bx today as had Lovenox this morning. Will hold Lovenox and plan for tomorrow. Discussed respiratory status with patient. Largely the same. Does get anxious with activities due to air hunger. Will give trial of lorazepam 0.5mg orally q4 hours as needed. Discussed side effects with patient. Watch for sedation. Obtain wheelchair for patient to help with mobility to appointments - she feels this would be very beneficial. Potentially decrease Prednisone to 40mg tomorrow. Monitor sugars - overall glycemic control stable. Check CXR to reassess status post diuresis. Continue with Bactrim DS BID due to E coli UTI - will need 3 week course due to stone. Recheck lab in am. Continue with supportive care. 01/26/[address]-guided biopsy of abdominal mass today under radiology supervision. Lovenox on hold for procedure Continue to work on breathing- Scheduled breathing tx and prednisone. Bactrim BID for treatment of UTI. Will need treatment till 02/10/17. Monitor renal function. Overall blood sugars have been well controlled. Fasting sugar this morning was low at 58. Discuss further plan of care with attending Dr Hackett 01/27/17- Anticipated Discharge Date Overall respiratory status is back to baseline on day of discharge. She is currently on 2 liters of oxygen by nasula canula. She Will be sent home on trilogy ventilator to utilize at night as recommended by pulmonology team. Given her acute on chronic hypercapnic respiratory failure secondary to COPD. She is to continue on prednisone's taper. Will decrease to 30 milligrams daily 5 days, then 20 milligrams daily 5 days, then down to baseline prednisone at 15 milligrams daily. Follow up apt with Dr. Conklin in one month. In light of chronic renal nephrolithiasis with recurrent urinary tract infection as recommended by Dr. Oseguera, urologist that patient be treated for a total of 3 weeks of antibiotic therapy. She will continue on Bactrim twice a day for 14 additional days, with the final dose being on 02/10/17. Lasix 40 mg daily for ongoing diuresis with oral potassium supplementation. Will need to follow BMP routinely. Next check Thursday 02/[address] Crow. Patient is to follow-up with Dr. Montilla in the next 1-2 weeks for pathology results and ongoing recommendation for treatment. Patient will be discharged home with . Discharge plans discussed with patient, , and primary care provider, Dr. Nida Crow ([facility]). She will follow [facility] in the outpatient setting. Arrangements made for discharge. Orders placed. Follow up set up. Dr Montilla called this afternoon with report of Bx - ovarian cancer. He does recommend power port placement prior to discharge, worries with her CP status trying to do this in outpatient setting may be problematic. Consult place to Dr Goodwin for evaluation. Able to do procedure tomorrow. Will hold on discharge plans for today so port can be placed tomorrow.
--- NOTE | 2017-01-27 18:39 | General Surgery Consult Note ---
Consult date: 01/27/17 Attending Physician: Arnulfo Hackett MD [facility] Surgical History: Hiatal hernia. Multiple Nasal Polypectomy. Vaginal Hysterectomy (patient retains ovaries). Bunionectomy. Colonoscopy. Cystoscopy with holmium laser and stent placement - 01/24/[address] Resendiz Family History Updates: Mother - breast cancer. 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) Current residence: Apartment/Private Home Medications Home Medications Medication Instructions Recorded Confirmed Type Albuterol Sulfate [Ventolin Hfa] 1 puff IH BID PRN #0 08/09/13 01/17/17 History Cod Liver Oil 1 cap PO DAILY 01/17/17 01/17/17 History Glimepiride [Amaryl] 2 mg PO DAILY 01/17/17 01/17/17 History Ibuprofen 200 mg PO Q4H PRN 01/17/17 01/17/17 History Losartan [Cozaar] 25 mg PO DAILY 01/17/17 01/17/17 History Potassium Chloride [K-Dur] 20 meq PO DAILY 01/17/17 01/17/17 History Vitamin D 1 tab PO DAILY 01/17/17 01/17/17 History Allergies Allergy/AdvReac Type Severity Reaction Status Date / Time amoxicillin Allergy Mild Verified 01/23/17 09:49 ciprofloxacin Allergy Mild Verified 01/23/17 09:49 ipratropium Allergy Unknown Verified 01/23/17 09:49 Review of Systems 10-point ROS: negative except for HPI and the following: - General General: Present: night sweats - Cardiovascular Cardiovascular: Present: edema/swelling - Respiratory Respiratory: Present: wheezing, difficulty breathing, cough, use of oxygen - Endocrine Endocrine: Present: diabetes - Vital Signs Last Vital Signs Temp 97.4 F 01/27/17 16:00 Pulse 78 01/27/17 16:00 Resp 20 01/27/17 16:00 BP 166/93 H 01/27/17 16:00 Pulse Ox 95 01/27/17 16:00 - Laboratory Result Diagrams: 01/26/17 04:29 01/27/17 04:26 Hospital Course Summary Disclaimer: The visit summary below is not to be considered part of the above Progress Note. Hospital Course: 01/17/17 Admit to inpatient. *CV: Continue IV diuresis. Assess 2D Echo for EF. Add beta-kelly, JOCELYN/ARB as appropriate. Continue O2. CTA obtained- a bit limited due to artifact. Start prophylaxis lovenox. *Pulm: Continue O2. Nebs. Diurese. Add doxycycline for URI. No acute evidence of pneumonia. *DM2- Continue home medications as appropriate. Monitor accuchecks. *Loose stool- Hold home code liver oil May need outpatient endoscopy when more stable. *Urinary frequency, Urgency Urine cx pending. Bilateral hydronephrosis. May need to obtain CT abdomen/pelvis, as similar sx with prior kidney stones. Torres for now due to significant respiratory distress. 01/18/17 Overnight oximetry obtained on 2 L supplemental oxygen demonstrating minor desaturations. About 7 minutes less than 90%. Diuresing well, continue Lasix. Rhinovirus positive and continues to wheeze extensively with upper airway sounds and patient reports of mucous plugging. Mucinex LA added at 1200 mg twice a day, continue breathing treatments. Doxycycline switched to oral administration. Anticipate alternate antibiotics when cultures available-some limitations due to allergies. Continue oral steroids, prednisone dose dropped [address] Conklin consulted. Echocardiogram in a.m. Last A1c about one year ago-recheck. Blood pressure stable on current regimen. 01/19/17 Continues oxygen 2 liters by nasal cannula to maintain saturations. Continue nebulizers and Mucinex LA. Consult placed for Dr. Conklin for further pulmonary recommendations. Sputum culture reveals normal respiratory nikolai. She has continued on Doxycycline Continue with diuresis. Lasix 40 milligrams daily. Weight has trended down approximately 5 kilograms since admission. Continue on prednisone 40 milligrams daily to help with pulmonary inflammation Urine culture did reveal positive for Escherichia coli. Will have to discuss antibiotic coverage further with attending. Also consider starting Oxybutynin for chronic urinary incontinence Continue to monitor blood sugars, overall, these appear to be well controlled. Continue Amaryl, sliding scale NovoLog Lovenox SQ daily for DVT prophylaxis Echocardiogram read pending Will discuss further orders and plan of care with attending, Dr. Larsen 01/20/17 Continue on Bactrim for TX of UTI. Will try Bipap overnight as recommended by Dr Conklin. Encourage ambulation. 01/21/17 Bladder retraining in progress - anticipate discontinuing Torres tomorrow. Dr. Larsen has discussed case with Dr. Oseguera, urology. CT renal ordered. Respiratory status about the same as yesterday. Tolerated BiPAP her first night , but it was difficult to sleep well with the mask. Continue BiPAP HS and Prednisone [address] Conklin evaluated her yesterday - recommends home ventilation via face mask; agrees with prednisone burst and taper; neb treatments, acapella. Electrolytes - improving. Na down to 144, K 4.3. Bicarb decreasing, now at 35. BUN slowly increasing - if this continues may need to change abx (on Bactrim for E. coli UTI). Hyperglycemia, readings ranging from 84 (fasting yesterday) to 236 (postprandial ). Increase SSI to medium corrective regimen. Continue glimepiride. Echo: EF 58%; trace valvular disease with mild PH. 01/22/[address] reviewed with Mrs. Austin. I shared with her my concern that this represents an ovarian carcinoma. She's previously undergone hysterectomy but ovaries were left intact. She is at high surgical risk for pulmonary complications if debulking surgery were to be considered but wishes to discuss this further with Dr. Conklin and I have spoken with him to update him on findings. Additionally I've spoken with Dr. Montilla who will see the patient in consultation and offer recommendations. Management is complicated by the patient's limited mobility and difficulty getting to and from offices. Surgical intervention for nephrolithiasis not an option, continue antibiotics for UTI for 3 weeks and reassess urine after treatment completed. Suspect stones or infected. Tolerated BiPAP fairly well last night, will begin tapering prednisone. Blood sugars remain elevated with steroids, continue corrective insulin. Blood pressures modestly elevated but typically systolic around 150-do not believe additional interventions are needed. Further improvement anticipated with dropping steroids. Weight stable, continue oral Lasix at current dose. 01/23/17 Mrs. Austin updated that no additional findings on CT with contrast. She is planning to proceed with chemotherapy and surgery if surgery can be performed safely. Anticipate percutaneous biopsy of the pelvic mass on Wednesday. Respiratory status stable, prednisone titrated to 50 mg daily this morning. Was able to wear BiPAP all night last night-continue. Volume status stable. I would like to try discontinuing Torres catheter prior to discharge the patient is opposed to removal due to prior incontinence. Have discussed risks of infection with continued catheter. Asked patient to discuss risks with her daughter who is a nurse. Persistent postprandial hyperglycemia, primarily after lunch and supper-add scheduled insulin with those meals. Blood pressures normal to slightly elevated-continue to monitor. 01/24/17 CTs reviewed with the patient and her . Has been concerned that the patient's hernia reflected a mass that would require biopsy but imaging clearly show hernia. Ultrasound guided biopsy of pelvic mass ordered for tomorrow, have requested the patient wear BiPAP during procedure. Platelet count and INR to be reassessed in the morning prior to procedure. She is planning to proceed with chemotherapy and surgery if surgery can be performed safely. Respiratory status stable, prednisone titrated to 50 mg daily 01/23. Tolerating BiPAP well. Plan mask to event at discharge; paperwork completed by Dr. Conklin and on the chart. Negative fluid balance the last 3 days, creatinine up slightly-discontinue Lasix. Patient remains opposed to discontinuing Torres catheter and having symptoms with bladder training. Discontinue bladder training for now and again asked the patient discuss risks of long-term Foleys with her daughter and that she discuss Torres catheter during chemotherapy with Dr. Montilla. Insulin with lunch and dinner initiated today for postprandial hyperglycemia, remains on low-dose Amaryl as well for steroid-induced hyperglycemia. Blood pressures normal to slightly elevated-continue to monitor. 01/25/17 Not able to due Pelvic mass Bx today as had Lovenox this morning. Will hold Lovenox and plan for tomorrow. Discussed respiratory status with patient. Largely the same. Does get anxious with activities due to air hunger. Will give trial of lorazepam 0.5mg orally q4 hours as needed. Discussed side effects with patient. Watch for sedation. Obtain wheelchair for patient to help with mobility to appointments - she feels this would be very beneficial. Potentially decrease Prednisone to 40mg tomorrow. Monitor sugars - overall glycemic control stable. Check CXR to reassess status post diuresis. Continue with Bactrim DS BID due to E coli UTI - will need 3 week course due to stone. Recheck lab in am. Continue with supportive care. 01/26/[address]-guided biopsy of abdominal mass today under radiology supervision. Lovenox on hold for procedure Continue to work on breathing- Scheduled breathing tx and prednisone. Bactrim BID for treatment of UTI. Will need treatment till 02/10/17. Monitor renal function. Overall blood sugars have been well controlled. Fasting sugar this morning was low at 58. Discuss further plan of care with attending Dr Hackett 01/27/17- Anticipated Discharge Date Overall respiratory status is back to baseline on day of discharge. She is currently on 2 liters of oxygen by nasula canula. She Will be sent home on trilogy ventilator to utilize at night as recommended by pulmonology team. Given her acute on chronic hypercapnic respiratory failure secondary to COPD. She is to continue on prednisone's taper. Will decrease to 30 milligrams daily 5 days, then 20 milligrams daily 5 days, then down to baseline prednisone at 15 milligrams daily. Follow up apt with Dr. Conklin in one month. In light of chronic renal nephrolithiasis with recurrent urinary tract infection as recommended by Dr. Oseguera, urologist that patient be treated for a total of 3 weeks of antibiotic therapy. She will continue on Bactrim twice a day for 14 additional days, with the final dose being on 02/10/17. Lasix 40 mg daily for ongoing diuresis with oral potassium supplementation. Will need to follow BMP routinely. Next check Thursday 02/[address] Crow. Patient is to follow-up with Dr. Montilla in the next 1-2 weeks for pathology results and ongoing recommendation for treatment. Patient will be discharged home with . Discharge plans discussed with patient, , and primary care provider, Dr. Nida Crow ([facility]). She will follow [facility] in the outpatient setting. Arrangements made for discharge. Orders placed. Follow up set up. Dr Montilla called this afternoon with report of Bx - ovarian cancer. He does recommend power port placement prior to discharge, worries with her CP status trying to do this in outpatient setting may be problematic. Consult place to Dr Goodwin for evaluation. Able to do procedure tomorrow. Will hold on discharge plans for today so port can be placed tomorrow. Sepsis Assessment - Evaluation Sepsis screening result: No Definite Risk
[2017-01-28] MEDS ORDERED: FALL RISK - PHARMACY CONSULT MC PRN (00:17)
[2017-01-28] MEDS: ALBUTEROL 2.5mg/3ml (0.083%) NEB AEROSOL SCH ×4 (07:04→17:31)
[2017-01-28] MEDS: CARVEDILOL 6.25 MG TABLET PO SCH ×2 (08:15→18:46)
--- NOTE | 2017-01-28 11:41 | Progress Note ---
Oncology Subjective Reclining in hospital bed, alone in room. Mildly anxious about discharge and concern about getting here to pick her up. States breathing is improved. Denies cough. States recently diagnosed with diabetes. Denies pain currently. States voiding normally. Normal stooling. Ambulates with walker. General: No fever, chills. Weight stable Eyes: No redness, no pain, no diplopia ENT: No mouth sores, no trouble swallowing Cardiac: No chest pain no palpitations Pulmonary: Positive shortness of air, wears oxygen Abdomen: No pain, no nausea vomiting, no diarrhea or constipation : No urgency, frequency, dysuria, or hematuria Musculoskeletal: No arthritis, no myalgias Neurological: No headaches, no focal weakness Skin: No rash, no sores Psychiatric: Mild anxiety regarding discharge Exam Vital signs: Temperature 96.9 F 01/28/17 11:28 Pulse Rate 72 01/28/17 11:28 Respiratory Rate 18 01/28/17 11:28 Blood Pressure 134/71 01/28/17 11:28 Pulse Oximetry 97 01/28/17 11:28 - Constitutional no acute distress, morbidly obese - Routine HEENT Exam Head: Present: normocephalic Eye: Present: EOMI ENT: Present: mucous membranes dry - Routine Neck Exam Present: supple. Absent: lymphadenopathy - Routine Respiratory Exam Present: rhonchi. Absent: accessory muscle use - Routine Cardiovascular Exam Present: RRR. Absent: no murmur - Routine Abdominal Exam Present: soft. Absent: tenderness Comments: Morbidly obese. No organomegaly or mass, but difficult to assess secondary to body habitus - Routine Extremities Exam Present: edema, full ROM - Routine Back/Spine/Pelvis Exam Back/Spine: Absent: vertebral tenderness - Routine Skin Exam Present: intact, dry. Absent: jaundice - Routine Neurological Exam Present: alert, oriented X3, normal speech - Routine Psychiatric Exam Present: normal affect Oncology Results - Labs CBC & Chem 7: 01/26/17 04:29 01/27/17 04:26 Assessment and Plan Assessment and Plan: 1. Large pelvic mass with omental caking highly suggestive of locally advanced ovarian cancer. Preliminary pathology indicate ovarian adenocarcinoma. Dr. Montilla reviewed findings with patient. 2. Comorbidities including chronic lung disease with long-term use of steroids , morbid obesity and borderline performance status. Education provided today on anticipated treatment with paclitaxel plus carboplatin plus bevacizumab. Patient treatment information provided to patient and contents reviewed including what I need to know before starting treatment/ starting paclitaxel plus carboplatin plus bevacizumab, how is the treatment given, when should I call my health care provider, what are the possible side effects? Taught signs and symptoms should report. Taught to increase fluids, recommend nutritious intake and to follow diabetic diet recommendations. Briefly discussed good handwashing, avoid crowds, and anyone with acute illness. Following discussion, her only question was how long would do chemotherapy last? Instructed chemotherapy lasts at least 5-6 hours the first couple cycles and that we would give her a calendar with follow-up information on days of chemotherapy and labs and follow-ups. Is also given 'My Journey,a customized health care guide and contents briefly reviewed. Informed consent is obtained. Discussed BRCA genetic testing and will arrange that at first follow- up visit. - Time Spent With Patient Total time spent is greater than 50% in coordination of care (as documented) at patient's floor/unit and/or counseling patient: 25 - 35 minutes Sepsis Assessment - Evaluation Sepsis screening result: No Definite Risk
[2017-01-28] MEDS: INSULIN ASPART 100unit/ml INJECTION SQ SCH ×2 (11:42→18:38)
--- NOTE | 2017-01-28 14:01 | Discharge Instructions ---
<Shonda Gonzalez V - Last Filed: 01/28/17 14:01> Discharge Plan - Med Rec/Dispo Referrals/Follow Up: Nida Clifford MD [Physician] - (Please schedule follow up apt with Dr Clifford for 1 week Will need BMP labs on 02/01. appoitment on 02/04 at 11:15 around home visit. APPOINTMENT CONFIRMED FOR A HOME VISIT WITH DR. CLIFFORD AT 11:00 AM, PHONE NUMBER [phone] ) Reshma Montilla MD [Physician] - (Please schedule follow up apt for 1-2 weeks APPOINTMENT ON 02/03 AT 2:40. APPOINTMENT SCHEDULED ON 02/03/2017 AT 2:4O PM, PHONE NUMBER [phone]) Eldon Conklin MD [Physician] - (Please schedule follow up for 1 month in [place] APPOINTMENT ON 02/23 AT 1:20 APPOINTMENT CONFIRMED FOR 02/23/2017 AT 1:20 PM AT [facility], PHONE NUMBER [phone]) [place] Instructions: Hypoxia (GEN) Additional Instructions: Home health with [facility] health care Prescriptions: New Carvedilol [Coreg] 6.25 mg PO BIDWM #30 tab Furosemide [Lasix] 40 mg PO DAILY #30 tab Sulfamethox/Tmp [Bactrim Ds] 1 tab PO BID #28 tab Acetaminophen [Tylenol] 325 - 650 mg PO Q5H PRN tablet PRN Reason: Discomfort Albuterol Neb (0.083%) [Proventil Neb (0.083%)] 2.5 mg AEROSOL RTQID neb Guaifenesin LA [Mucinex LA] 1,200 mg PO BID tablet LORazepam [Ativan] 0.5 mg PO Q4-6HPRN PRN #20 tablet PRN Reason: Anxiety Continue Vitamin D 1 tab PO DAILY Cod Liver Oil 1 cap PO DAILY Potassium Chloride [K-Dur] 20 meq PO DAILY Losartan [Cozaar] 25 mg PO DAILY PredniSONE [Deltasone] 15 mg PO DAILY #40 tab Albuterol Sulfate [Ventolin Hfa] 1 puff IH BID PRN #0 PRN Reason: Prn Orders Glimepiride [Amaryl] 2 mg PO DAILY No Action Ibuprofen 200 mg PO Q4H PRN PRN Reason: Pain Discharge Instructions/Outpatient Orders: Final Provider Discharge Instructions Location: Determined By Patient - Disposition 01 Discharged Home, Self-Care <Arnulfo Hackett - Last Filed: 01/28/17 18:48> Discharge Plan - Med Rec/Dispo - Attestation Attestation Narrative: 01/28/17 18:46 I have independently interviewed and examined pt prior to discharge. Case discussed with my RIPSHEAR OPERATOR. Agree with above. Doing well after port placement. Breathing stable. Ambulating okay. Lungs: decreased, no distress CV: regular MSE: awake alert appropriate Plan: Will discharge to home. See orders for details. Addendum entered and electronically signed by Shonda Gonzalez APRN 01/28/17 17 :48: Discharge plan was postponed until today. Patient was able to receive her placement of Port-A-Cath under the order of Dr. Montilla for ongoing outpatient oncology treatment. Patients with patient, has been and case management today regarding discharge plan. Home ventilator will be delivered later today. Patient is planned for discharge this evening with daughter. All follow-up arrangements and appointments have been scheduled, see previous in this document. Lower is seen and examined on day of discharge. Overall, she feels that her breathing is at baseline. She does verbalize her anxiety towards discharge and ambulation at home. She will plan to follow closely with primary care provider, Dr. Clifford.
[2017-01-28] MEDS ORDERED: BUPIVACAINE 0.5% (5mg/ml) PF 30ml INJ SDV ONE (14:13)
[2017-01-28] MEDS ORDERED: LIDOCAINE 1% (10mg/ml) 30ml SDV INJ ONE (14:13)
[2017-01-28] MEDS ORDERED: SALINE FLUSH 10ml SYRINGE ONE (14:13)
--- NOTE | 2017-01-28 14:15 | Anesthesia Preoperative Report ---
Anesthesia Preoperative Record - Date and Time Date: 01/28/17 Preoperative Diagnosis: acute hypoxic respiratory failure Proposed Procedure: Port NPO Since Date: 01/28/17 NPO Since Time: 07:30 Allergies/Adverse Reactions: Allergies Allergy/AdvReac Type Severity Reaction Status Date / Time amoxicillin Allergy Mild Verified 01/23/17 09:49 ciprofloxacin Allergy Mild Verified 01/23/17 09:49 ipratropium Allergy Unknown Verified 01/23/17 09:49 - Vital Signs Vital Signs: Temperature 98.1 F 01/28/17 14:06 Pulse Rate 81 01/28/17 14:06 Respiratory Rate 19 01/28/17 14:06 Blood Pressure 144/67 H 01/28/17 14:06 Pulse Oximetry 95 01/28/17 14:06 Height and Weight: Height 5 ft 1 in Weight 116.9 kg Body Mass Index 51.9 - Medications Inpatient Medications: Current Medications Acetaminophen (Tylenol) 325 - 650 mg PO Q5H PRN PRN Reason: Discomfort Albuterol Sulfate (Proventil Neb (0.083%)) 2.5 mg AEROSOL RTQID [facility] Last Admin: 01/28/17 11:12 Dose: 2.5 mg Albuterol Sulfate (Proventil Neb (0.083%)) 2.5 mg AEROSOL Q4H PRN PRN Reason: Wheezing Last Admin: 01/19/17 22:32 Dose: 2.5 mg Albuterol Sulfate (Ventolin Hfa) 2 puff ORAL INH Q4HR PRN Carvedilol (Coreg) 6.25 mg PO BIDWM [facility] Last Admin: 01/28/17 08:15 Dose: 6.25 mg Enoxaparin Sodium (Lovenox) 30 mg SQ Q12H [facility] Last Admin: 01/25/17 05:28 Dose: 30 mg Furosemide (Lasix) 40 mg PO DAILY [facility] Last Admin: 01/24/17 09:36 Dose: Not Given Glimepiride (Amaryl) 2 mg PO WB [facility] Last Admin: 01/27/17 08:08 Dose: 2 mg Guaifenesin (Mucinex La) 1,200 mg PO BID [facility] Last Admin: 01/27/17 21:01 Dose: 1,200 mg Insulin Aspart (Novolog) 0 unit SQ SS PRN; Protocol PRN Reason: Hyperglycemia Last Admin: 01/27/17 21:02 Dose: 3 unit Insulin Aspart (Novolog) 5 unit SQ ACL [facility] Last Admin: 01/28/17 11:42 Dose: Not Given Insulin Aspart (Novolog) 5 unit SQ ACS [facility] Last Admin: 01/27/17 18:07 Dose: 5 unit Lorazepam (Ativan) 0.5 mg PO Q4HR PRN PRN Reason: Air hunger/Anxiety Losartan Potassium (Cozaar) 25 mg PO DAILY [facility] Last Admin: 01/27/17 08:08 Dose: 25 mg Metoclopramide HCl (Reglan) 5 mg IVP Q6H PRN Nystatin (Mycostatin) 1 applic TP TID [facility] Last Admin: 01/28/17 10:48 Dose: 1 applic Ondansetron HCl (Zofran) 4 mg IVP Q6H PRN PRN Reason: Nausea &/or vomiting Potassium Chloride (K-Dur) 20 meq PO WB [facility] Last Admin: 01/24/17 09:36 Dose: Not Given Prednisone (Deltasone) 40 mg PO WB [facility] Last Admin: 01/27/17 08:08 Dose: 40 mg Sodium Chloride (Iv Flush) 10 - 80 ml IVF PRN PRN PRN Reason: Flushing Last Admin: 01/26/17 20:43 Dose: 10 ml Trimethoprim/Sulfamethoxazole (Bactrim Ds) 1 tab PO BID [facility] Last Admin: 01/27/17 21:01 Dose: 1 tab Home Medications: Home Medications Medication Instructions Recorded Confirmed Type Albuterol Sulfate [Ventolin Hfa] 1 puff IH BID PRN #0 08/09/13 01/17/17 History Cod Liver Oil 1 cap PO DAILY 01/17/17 01/17/17 History Glimepiride [Amaryl] 2 mg PO DAILY 01/17/17 01/17/17 History Ibuprofen 200 mg PO Q4H PRN 01/17/17 01/17/17 History Losartan [Cozaar] 25 mg PO DAILY 01/17/17 01/17/17 History Potassium Chloride [K-Dur] 20 meq PO DAILY 01/17/17 01/17/17 History Vitamin D 1 tab PO DAILY 01/17/17 01/17/17 History Is Patient on Beta Mary?: No - Medical History Respiratory: Reports: Asthma, Chronic Obstructive Pulmonary Disease (COPD), Upper Respiratory Infection, Sleep Apnea Cardiovascular: Reports: Hypertension Gastrointestional: Reports: Morbid Obesity Neuro/Musculoskeletal: Denies: HX.MS.OSAR, Back Problems, Cerebrovascular Accident, Depression, Headaches, Loss of Consciousness, Muscle Weakness, Neuromuscular Disorder, Paralysis, Paresthesia, Syncope, Seizures, Other Renal/Endocrine: Reports: Diabetes Mellitus Type 1 Other History: DENIES: Anesthesia Reactions, Now, Blood Transfusions, Chemotherapy , Cancer, Hemophilia, Malignant Hyperthermia, Sickle Cell Disease, Other - Surgical History HEENT Surgeries: Reports: Eye Surgery (bilateral cataract surgery), Nose Surgery (sinusitis-) Respiratory Surgery/Treatments: Reports: Oxygen Administration (2-3L) GI Surgery/Treatments: Reports: Hernia Repair, Colonoscopy, EGD (esophagitis) Reproductive Surgery/Treatment: Reports: Hysterectomy Anesthesia Reactions: None Hx Family Anesthesia Reaction: No History of Motion Sickness: No - Social History Smoking Status: Never smoker Hx Chewing Tobacco Use: No Second Hand Exposure: No Substance Use Type: does not use Alcohol Intake: never Alcohol Intake Frequency: does not drink - Pertinent Findings Laboratory: CBC and BMP 01/26/17 04:29 01/27/17 04:26 EKG Rhythm: Normal Sinus Rhythm - Physical Exam Respiratory Exam: Present: wheezing, bilateral breath sounds equal, other (BL Rhochi and wheezing) Cardiovascular Exam: Present: regular rate and rhythm, no murmur - Airway Assessment Mallampati Score: II TMD: 3 Fingerbreadths Neck Extension: good Overall Assessment: may be difficult mask vent, may be difficult intubation - ASA ASA Score: 4 - Plan Anesthesia: General TIVA, MAC - Discussion Discussion: Discussed risks/options/alternatives of anesthesia and questions answered. Patient consents. Nursing pain assessment noted. Attestation Statement: Prior to the delivery of any anesthetic medication, I examined the patient, developed the plan, obtained the patient's consent and discussed the risk and benefits of the procedure with the patient/guardian. - Additional Information Seen by Anesthesia: Yes
[2017-01-28] MEDS ORDERED: MIDAZOLAM 5mg/5ml INJECTION ONE (14:50)
[2017-01-28] MEDS ORDERED: FentaNYL 100 MCG/2 ML INJECTION ONE (14:50)
[2017-01-28] MEDS ORDERED: KETAMINE 500 MG/10 ML INJECTION ONE (14:50)
[2017-01-28] MEDS ORDERED: LIDOCAINE 1% (10mg/ml) 2mL INJ PF SDV ID ONE (15:05)
[2017-01-28] MEDS ORDERED: CEFAZOLIN 1 G INJECTION IVP ONE (15:06)
[2017-01-28] MEDS ORDERED: LR 1,000 ML IV SCH (15:15)
[2017-01-28] MEDS ORDERED: EPINEPHRINE ID ONE (15:34)
[2017-01-28] MEDS ORDERED: BUPIVACAINE 0.5% ID ONE (15:34)
[2017-01-28] MEDS ORDERED: LIDOCAINE 1% ID ONE (15:34)
[2017-01-28] MEDS ORDERED: SALINE FLUSH *Sterile* 10 ML SYRINGE IV ONE (15:44)
--- NOTE | 2017-01-28 16:19 | Consultation ---
DATE OF CONSULTATION 01/27/2017 CONSULTING PHYSICIAN Eldon Goodwin MD REQUESTING PHYSICIAN Arnulfo Hackett MD REASON FOR CONSULTATION Consider Port-A-Cath placement. IMPRESSION 1. Newly diagnosed ovarian cancer. 2. Obesity with BMI of 48.7. 3. Congestive heart failure. 4. Acute and chronic respiratory failure. 5. Asthma - COPD overlap syndrome with acute exacerbation. PLAN 1. After evaluation I do feel that Flower would be a candidate for PowerPort placement. She is not an excellent operative candidate given her lung conditions, recent heart condition, and obesity but Dr. Montilla feels that she is as optimized as possible in her current situation and that outpatient PowerPort placement would likely be more risky. 2. N.p.o. at midnight. HISTORY OF PRESENT ILLNESS Flower is a 71-year-old female who was recently diagnosed with ovarian cancer during this hospital stay. Dr. Montilla has evaluated her and does feel that she needs to have a PowerPort placed in order to receive chemotherapy treatment. She has been hospitalized since 01/17/2017 and has had multiple respiratory issues. She has been seen by Dr. Conklin. She has also had some congestive heart failure and has had significant diuresis. She has been on some prednisone. The patient denies any neck surgeries. She is wanting to proceed with treatment for her ovarian cancer. For Past Medical History, Past Surgical History, Social History, Family History , Allergies, Medications, and Review of Systems, see electronic consultation note. PHYSICAL EXAMINATION VITAL SIGNS: Temperature 97.4, pulse 78, blood pressure 166/93, respiratory rate 18, oxygen saturation 95% on 2 liters nasal cannula. GENERAL: The patient is awake and alert in no acute distress. HEENT: Sclerae clear. Extraocular muscles intact. NECK: Obese with a midline trachea. HEART: Regular rate and rhythm. LUNGS: Coarse to auscultation bilaterally. ABDOMEN: Soft, obese. There is a mass in the upper abdomen. Her abdomen is nontender. EXTREMITIES: Moderate pitting edema of both lower extremities. NEURO: Cranial nerves II-XII are grossly intact. PSYCHIATRIC: Normal mood and affect. LABORATORY DATA INR was normal at 0.98 on 01/25/2017. PATIENT EDUCATION The details, risks and benefits of Port-A-Cath placement were discussed with the patient and her daughter who was on speaker phone. The discussion included , but was not limited to, bleeding, injury to neck structures, pneumothorax requiring chest tube placement, possible minimal sedation given her comorbidities, infection, blood stream infection requiring catheter removal, port malfunction, and complications of anesthesia. She voiced understanding and did wish to proceed with PowerPort placement. Thank you for allowing me to participate in Flower's care. SOCORRO
--- NOTE | 2017-01-28 16:25 | Remote Fluorsocopy Report ---
Indication: OVARIAN CANCER PROCEDURE: RF portacath w fluoro wo cxr: Encounter: Initial Comparison: None Findings: Three fluoroscopic spot images are submitted for interpretation. Images show placement of an internal jugular approach central venous port catheter. Impression: Fluoroscopy as above. Fluoroscopy time is 30 seconds. Fluoroscopy dose is 559.6 mRad. .
[2017-01-28 16:34] VITALS: TEMP 97
--- NOTE | 2017-01-28 16:44 | General Surgery Procedure Note ---
Date of Procedure: 01/28/17 Surgeon: Christa Anesthesia: MAC ASA Score: 4 Postoperative Diagnosis: Ovarian cancer Procedure: Right IJ PowerPort placement
[2017-01-28 17:39] VITALS: RESP 12
[2017-01-28] MEDS: GLIMEPIRIDE 2 MG TABLET PO SCH (18:07)
[2017-01-28] MEDS: PredniSONE 20 MG TABLET PO SCH (18:36)
[2017-01-28] MEDS: SULFAMETHOXAZOLE/TMP 800 MG/160 MG DS TABLET PO SCH (18:36)
[2017-01-28] MEDS: GUAIFENESIN LA 600 MG TABLET PO SCH (18:37)
[2017-01-28] MEDS: LOSARTAN 50 MG TABLET PO SCH (18:37)
[2017-01-28 18:45] VITALS: BP 127/71; PULSE 87; O2SAT 93
--- NOTE | 2017-01-28 20:07 | Anesthesia Postoperative Note ---
- Date and Time Date: 01/28/17 Time: 16:25 - Status Patient Participated in Evaluation: Patient Participated in Person Vital Signs: Temperature 97 F 01/28/17 16:50 Pulse Rate 87 01/28/17 18:43 Respiratory Rate 12 01/28/17 17:30 Blood Pressure 127/71 01/28/17 18:43 Pulse Oximetry 93 01/28/17 18:43 Respiratory Function: Airway Patent Cardiovascular Function: Regular Pulse EKG Rhythm: Normal Sinus Rhythm Mental Status: Alert and Oriented Hydration: IV Infusing Complications During Recover: None Apparent - Follow-Up Instructions Instructions: Per Surgeon
--- NOTE | 2017-01-30 10:43 | Operative Note ---
DATE OF OPERATION 01/28/2017 PREOPERATIVE DIAGNOSIS Ovarian cancer. POSTOPERATIVE DIAGNOSIS Ovarian cancer. OPERATION Placement of right internal jugular Port-A-Cath with sonographic and fluoroscopic guidance. DEVICE PLACED [employer]. SURGEON Eldon Goodwin M.D. ANESTHESIA MAC ASA CLASSIFICATION 4 INDICATIONS The patient is a 71-year-old female who was diagnosed with ovarian cancer during this hospital stay. A Port-A-Cath was requested to help with chemotherapy. She had poor venous access due to her obesity. It was also felt that she was most medically optimized during this hospital stay as opposed to an outpatient procedure. FINDINGS The right internal jugular vein was widely patent on sonography. Fluoroscopy revealed good position of the catheter, with the tip in the superior vena cava and no evidence of pneumothorax. DESCRIPTION OF PROCEDURE After informed consent was obtained, the patient was taken to the operating room , and placed in slight Trendelenburg position. IV sedation was administered by the Anesthesia team. The right neck was then prepped and draped in the usual sterile fashion. A sterile sonogram probe was brought onto the field and used to examine the right internal jugular vein. Local was used to anesthetize the skin. A small skin incision was made at the neck using an 11 blade scalpel. The vein was then cannulated with a Cook needle under direct vision with the sonogram probe. A guidewire was advanced through the Cook needle and the position of the guidewire was confirmed using fluoroscopy. With the guidewire in place, the skin of the right chest incision, the subcutaneous pocket, and the catheter tract were anesthetized with local. The chest incision was made with a 15-blade scalpel and a subcutaneous pocket was developed using cautery. Hemostasis within the pocket was assured. The catheter was then tunneled from the chest incision to the neck incision using the tunneling device. The port was secured to the underlying fascia using 3-0 PDS sutures. The catheter was then measured and cut to length using fluoroscopy. A dilator and sheath were threaded over the guidewire and the dilator and guidewire were removed. The catheter tip was threaded through the sheath and the sheath was removed. Final position of the catheter was then confirmed with fluoroscopy and the apex of the lung was also inspected with fluoroscopy. The port was then accessed with a Hagen needle. It aspirated and flushed easily. It was flushed with heparinized saline. The dermis of the chest skin incision was closed with interrupted 3-0 Vicryl stitches and the skin closed with a running subcuticular 4-0 Monocryl stitch. The neck was closed with a buried interrupted 4-0 Monocryl stitch. Dermabond was placed as a dressing for both incisions. The patient tolerated the procedure well and was awakened and transferred to the recovery area in stable condition. SOCORRO
== END 2017-01-28 20:25 | disposition home health service (06) | DRG 291 ==
LOC: ED 12:16 → MED 15:50
PROVIDERS: ADMIT Internal Medicine; ATTEND Hospitalist